=== PATIENT | male | born 1990 | race Caucasian/White ===

== ENCOUNTER 2023-05-10 16:12 | Observation (INO) ==
[2023-05-10] MEDS ORDERED: KETOROLAC TROMETHAMINE 15 MG/ML VIAL IV STA (16:51)
[2023-05-10] MEDS ORDERED: ONDANSETRON INJ 2 MG/ML 2 ML VIAL IV STA (16:51)
[2023-05-10] MEDS ORDERED: SODIUM CHLORIDE 0.9% 1,000 ML IV ONE ×2 (16:51→21:42)
--- NOTE | 2023-05-10 16:51 | ED Triage Note ---
Date of Service May 10, 2023 Provider in Triage Author: Dagmar Ramirez History of Present Illness This patient was briefly evaluated while in triage. An abbreviated physical exam was performed. This patient is a 33-year-old Male who presents to the ED for evaluation of left flank pain, vomiting and diarrhea. He states the vomiting and diarrhea started first. Pain started a few hours ago. He has had vomiting. Denies urinary symptoms. States symptoms hit suddenly. He does report diarrhea. Denies fevers. No history of similar symptoms. Physical Exam VITALS: Vitals are noted on the nurse's note and reviewed by myself. GENERAL: This is a 33-year-old male, in no acute distress, well-developed well- nourished. SKIN: The skin was without rashes. HEART: Regular rate and rhythm without murmurs gallops or rubs. LUNGS: Clear to auscultation bilaterally without wheezes, rales or rhonchi. No retractions or accessory muscle use. ABDOMEN: Positive bowel sounds x 4. Soft, left flank tenderness. NEURO: Patient was alert and oriented to person place and time. Initial orders for labs and / or imaging were placed and patient was placed in the waiting area until a bed is available. Please see further documentation for the full ED course.
[2023-05-10 18:35] LABS: Basophils # (auto) 0.05 K/uL (0.00-0.20); Basophils % (auto) 0.2 %; Eosinophils # (auto) 0.03 K/uL (0.00-0.50); Eosinophils % (auto) 0.1 %; Hematocrit (blood only) 44.1 % (42.0-52.0); Hemoglobin 16.3 g/dl (14.0-18.0); Immature Granulocytes # (auto) 0.12 K/uL (0.01-0.20); Immature Granulocytes % (auto) 0.6 %; Lymphocytes # (auto) 1.86 K/uL (1.20-3.40); Lymphocytes % (auto) 8.6 %; Mean Corpuscular Volume 81.2 fL (80.0-100.0); Mean Platelet Volume 10.4 fL (9.4-12.4); Monocytes # (auto) 0.79 K/uL (0.11-0.59); Monocytes % (auto) 3.7 %; Neutrophils # (auto) 18.69 K/uL (1.40-6.50); Neutrophils % (auto) 86.8 %; Platelet Count 318 K/uL (130-400); RDW Coefficient of Variation 12.2 % (11.5-14.5); Red Blood Count 5.43 M/uL (4.70-6.10); White Blood Count 21.54 K/ul (4.8-10.8)
[2023-05-10 18:47] LABS: Alanine Aminotransferase 26 U/L (7-52); Albumin Level 4.9 gm/dl (3.4-5.0); Alkaline Phosphatase 50 U/L (34-104); Anion Gap 14 (3-11); Aspartate Aminotransferase 20 U/L (13-39); BUN Creatinine Ratio 17.9 (10-20); Bilirubin,Total 0.7 mg/dl (0.2-1.0); Blood Urea Nitrogen 17 mg/dl (6-23); Calcium 9.9 mg/dl (8.6-10.3); Carbon Dioxide 20 mmol/L (21-32); Chloride 106 mmol/L (98-107); Est GFR (African American) 123.1 ml/min; Est GFR (Non-African American) 106.2 ml/min; Globulin 2.5 gm/dl (2.5-4.0); Glucose 128 mg/dl (70-99(Fasting)); Lipase 10 U/L (11-82); Potassium 3.5 mmol/L (3.5-5.1); Sodium 140 mmol/L (136-145); Total Protein 7.4 gm/dl (6.0-8.3)
[2023-05-10] MEDS ORDERED: OPTIRAY 320 500ml IV ONE (19:20)
[2023-05-10 19:32] LABS: Appearance Urine Clear (Clear); Bilirubin Urine Negative (Negative); Blood Urine Negative (Negative); Color Urine Yellow; Glucose Urine UA Negative (Negative); Ketones Urine 3+ (Negative); Leukocyte Esterase Urine Negative (Negative); Nitrite Urine Negative (Negative); Specific Gravity Urine 1.026 (1.000-1.030); Urobilinogen Urine Negative (Negative); pH Urine >= 9.0 (4.5-7.5)
[2023-05-10 19:34] LABS: Protein Urine 1+ (Negative)
[2023-05-10 19:57] LABS: Bacteria Urine Negative (Negative); Mucus Urine Present (None Prsent); RBC Urine 0-4 /hpf (0-4); WBC Urine 0-5 /hpf (0-5)
--- NOTE | 2023-05-10 19:57 | CT Scan Report ---
Exam(s): CT ABDOMEN + PELVIS With Contrast IV Amt: 90 cc opti 320 EXAM: CT Abdomen and Pelvis With Intravenous Contrast CLINICAL HISTORY: Reason for exam: left flank pain. TECHNIQUE: Axial computed tomography images of the abdomen and pelvis with intravenous contrast. CTDI is 15.86 mGy and DLP is 766.15 mGy-cm. Automated exposure control was utilized for the study. A dose lowering technique was utilized adhering to the principles of ALARA. CONTRAST: Patient received 90 cc opti 320 of IV contrast COMPARISON: No relevant prior studies available. FINDINGS: Lung bases: Unremarkable. No mass. No consolidation. ABDOMEN: Liver: Unremarkable. No mass. Gallbladder and bile ducts: Unremarkable. No calcified stones. No ductal dilation. Pancreas: Unremarkable. No mass. No ductal dilation. Spleen: Unremarkable. No splenomegaly. Adrenals: Unremarkable. No mass. Kidneys and ureters: Unremarkable. No solid mass. No hydronephrosis. Stomach and bowel: Wall thickening of the ascending and transverse colon, concerning for mild colitis. Diverticulosis, without acute diverticulitis. No small bowel obstruction. PELVIS: Appendix: No findings to suggest acute appendicitis. Bladder: Unremarkable. No mass. Reproductive: Unremarkable as visualized. ABDOMEN and PELVIS: Intraperitoneal space: Unremarkable. No free air. No significant fluid collection. Bones/joints: No acute fracture. No dislocation. Soft tissues: Small fat-containing bilateral inguinal hernias. Vasculature: Unremarkable. No abdominal aortic aneurysm. Lymph nodes: Unremarkable. No enlarged lymph nodes. IMPRESSION: Wall thickening of the ascending and transverse colon, concerning for mild colitis. Mild wall thickening of the urinary bladder, which is under distended. The need for urinalysis should be determined clinically. No hydronephrosis. No delayed nephrogram. Electronically signed by: Gatito Pickett MD 05/10/23 19:56 PM
[2023-05-10] MEDS ORDERED: LORazepam 1 MG TAB SL STA (20:10)
[2023-05-10] MEDS ORDERED: FAMOTIDINE 20MG IV PUSH 20 MG/5 ML SYR IV STA (21:42)
--- NOTE | 2023-05-10 21:42 | Emergency Department Note ---
ED Provider Note History of Present Illness Chief Complaint: Flank Pain Stated Complaint: SHARP LT FLANK PAIN, CONSISTANT VOMITING Time Seen by Provider: 05/10/23 21:14 This patient is a 33-year-old male who presents to the emergency department for evaluation of left flank pain, nausea/vomiting and diarrhea. He reports that symptoms started this morning. He developed nausea and diarrhea, then began vomiting. He reports that he then developed some left flank pain. Denies any blood in his stool or vomit. He reports having some chills. He states that pain is now in the upper abdomen. He did not take any medications prior to coming in. Denies noticing any fevers. Denies any recent sick contacts. Home Medications Medication Instructions Recorded Confirmed Type buspirone 30 mg tablet 30 mg PO BID 05/10/23 05/10/23 History dextroamphetamine-amphetamine 10 10 mg PO .DAILY AT NOON 05/10/23 05/10/23 History mg tablet dextroamphetamine-amphetamine ER 20 mg PO QAM 05/10/23 05/10/23 History 20 mg 24hr capsule,extend release escitalopram oxalate 20 mg tablet 20 mg PO DAILY 05/10/23 05/10/23 History lamotrigine 100 mg tablet 200 mg PO QAM 05/10/23 05/10/23 History vancomycin 125 mg capsule 125 mg PO Q6H 10 days #40 caps 05/13/23 Rx Allergies Allergy/AdvReac Type Severity Reaction Status Date / Time No Known Allergies Allergy Unverified 05/10/23 23:02 Past Med/Surg History Medical History Anxiety and depression Testicular torsion Surgical History No significant past surgical history Social History Smoking Status: Never smoker Second Hand Exposure: No; Do You Dip or Chew Tobacco: No; Hx Alcohol Use: No Hx Substance Use: Yes Last Used Substance: Days (ago) Last Used Substance Other:: 2 days ago Preferred Language: French Communication Ability: Effective Comparison Shopper Required: No Beliefs That Will Affect Care: None Current Living Situation: Alone Other Information That Helps Us Care for You: No Feels Safe at Home: Yes Safety Concerns: Feels Safe At This Time Assistive Devices: None Physical Exam Vital Signs Vital Signs - 24 hr 05/10/23 16:48 Temperature 36.8 C Temperature Source Temporal Artery Scan Pulse Rate 78 Respiratory Rate 19 Blood Pressure 147/86 H Blood Pressure Mean 106 Pulse Oximetry 100 Oxygen Delivery Method Room Air Sepsis Recent Fever Within 48 Hours No Sepsis New/Unexplained Change in Mental Status N/A Sepsis Action Taken by Nursing No Action Required VITALS: Vitals are noted on the nurse's note and reviewed by myself. GENERAL: This is a 33-year-old male, hunched over in pain. SKIN: The skin was without rashes. HEART: Regular rate and rhythm without murmurs gallops or rubs. LUNGS: Clear to auscultation bilaterally without wheezes, rales or rhonchi. ABDOMEN: Positive bowel sounds x 4. Tenderness to palpation across the upper abdomen. No guarding or rebound tenderness NEURO: Patient was alert and oriented to person place and time. Course Administered Medications Discontinued Medications Amphetamine/Dextroamphetamine (Dextroamphetamine/Amphetamine Ir 10 Mg Tab) 10 mg PO DAILY@1200 [facility] Stop: 05/25/23 11:59 Last Admin: 05/13/23 11:59 Dose: Not Given Documented By: Admin: 05/12/23 15:03 Dose: Not Given Documented By: Admin: 05/11/23 12:55 Dose: Not Given Documented By: KEMAL Amphetamine/Dextroamphetamine (Dextroamphetamine/Amphetamine Er 20 Mg Cap) 20 mg PO QAM [facility] Stop: 05/25/23 08:59 Last Admin: 05/13/23 08:49 Dose: Not Given Documented By: Admin: 05/12/23 09:04 Dose: 20 mg Documented By: Admin: 05/11/23 09:16 Dose: Not Given Documented By: KEMAL Buspirone HCl (Buspirone 15 Mg Tab) 30 mg PO BID [facility] Stop: 06/10/23 08:59 Last Admin: 05/13/23 11:59 Dose: 30 mg Documented By: Admin: 05/12/23 19:33 Dose: 30 mg Documented By: Admin: 05/12/23 09:04 Dose: 30 mg Documented By: Admin: 05/11/23 21:12 Dose: 30 mg Documented By: Admin: 05/11/23 09:15 Dose: 30 mg Documented By: KEMAL Johnson Syrup (Johnson Syrup 5 Ml Udp) 5 ml PO Q6 [facility] Stop: 05/22/23 17:59 Last Admin: 05/13/23 11:58 Dose: 5 ml Documented By: Admin: 05/13/23 06:08 Dose: 5 ml Documented By: Admin: 05/12/23 22:49 Dose: 5 ml Documented By: Admin: 05/12/23 17:50 Dose: 5 ml Documented By: GERARDO Diphenhydramine HCl (Diphenhydramine 50 Mg/Ml Vial) 25 mg IV NOW STA Stop: 05/10/23 22:07 Last Admin: 05/10/23 22:18 Dose: 25 mg Documented By: TODD Diphenhydramine HCl (Diphenhydramine 50 Mg/Ml Vial) 25 mg IV NOW STA Stop: 05/11/23 08:59 Last Admin: 05/11/23 09:30 Dose: 25 mg Documented By: KEMAL Diphenhydramine HCl (Diphenhydramine Capsule 25 Mg Cap) 25 mg PO NOW ONE Stop: 05/11/23 19:43 Last Admin: 05/11/23 21:12 Dose: 25 mg Documented By: DAREK Diphenhydramine HCl (Diphenhydramine Capsule 25 Mg Cap) 25 mg PO HS PRN PRN Reason: Sleep Stop: 06/11/23 23:58 Last Admin: 05/13/23 00:19 Dose: 25 mg Documented By: RADHA Enoxaparin Sodium (Enoxaparin Inj 40 Mg/0.4 Ml Syr) 40 mg SQ QAM [facility] Stop: 06/10/23 08:59 Last Admin: 05/13/23 08:47 Dose: 40 mg Documented By: Admin: 05/12/23 09:05 Dose: 40 mg Documented By: Admin: 05/11/23 09:19 Dose: 40 mg Documented By: KEMAL Escitalopram Oxalate (Escitalopram Oxalate 20 Mg Tab) 20 mg PO DAILY [facility] Stop: 06/10/23 08:59 Last Admin: 05/13/23 08:48 Dose: 20 mg Documented By: Admin: 05/12/23 09:05 Dose: 20 mg Documented By: Admin: 05/11/23 09:16 Dose: 20 mg Documented By: KEMAL Sodium Chloride (Nss) 1,000 mls @ 999 mls/hr IV .Q1H1M ONE Stop: 05/10/23 17:51 Last Infusion: 05/10/23 20:37 Dose: Infused Documented By: Admin: 05/10/23 17:53 Dose: 999 mls/hr Documented By: BING Famotidine (Pepcid 20mg Iv Push) 20 mg in 5 mls @ 2.5 mls/min IV NOW STA Stop: 05/10/23 21:43 Last Admin: 05/10/23 22:20 Dose: 2.5 mls/min Documented By: TODD Sodium Chloride (Nss) 1,000 mls @ 999 mls/hr IV .Q1H1M ONE Stop: 05/10/23 22:42 Last Infusion: 05/10/23 23:53 Dose: Infused Documented By: Admin: 05/10/23 22:17 Dose: 999 mls/hr Documented By: TODD Lactated Ringer's (Lr) 1,000 mls @ 250 mls/hr IV .Q4H ONE Stop: 05/11/23 03:22 Last Infusion: 05/11/23 04:02 Dose: Infused Documented By: Admin: 05/11/23 00:24 Dose: 250 mls/hr Documented By: MIKIE Promethazine HCl 6.25 mg/ (Sodium Chloride) 50.25 mls @ 201 mls/hr IV Q6H PRN PRN Reason: Nausea And Vomiting Stop: 06/10/23 01:47 Last Infusion: 05/11/23 21:34 Dose: Infused Documented By: Admin: 05/11/23 21:09 Dose: 201 mls/hr Documented By: Infusion: 05/11/23 03:59 Dose: Infused Documented By: Admin: 05/11/23 03:10 Dose: 201 mls/hr Documented By: LETICIA Lorazepam 0.5 mg/ Syringe 0.5 mls @ 2 mls/min IV Q4H PRN PRN Reason: Anxiety/Agitation Stop: 06/10/23 01:47 Last Admin: 05/13/23 08:48 Dose: 2 mls/min Documented By: Admin: 05/12/23 22:49 Dose: 2 mls/min Documented By: RADHA Lactated Ringer's (Lr) 1,000 mls @ 200 mls/hr IV .Q5H ONE Stop: 05/11/23 08:59 Last Infusion: 05/11/23 09:08 Dose: Infused Documented By: Admin: 05/11/23 04:00 Dose: 200 mls/hr Documented By: LETICIA Ciprofloxacin (Cipro / D5w) 400 mg in 200 mls @ 100 mls/hr IV Q12H MARK ANTHONY; Protocol Stop: 05/21/23 14:59 Last Infusion: 05/13/23 06:10 Dose: Infused Documented By: Admin: 05/13/23 04:10 Dose: 100 mls/hr Documented By: Infusion: 05/12/23 17:17 Dose: Infused Documented By: Admin: 05/12/23 15:04 Dose: 100 mls/hr Documented By: Infusion: 05/12/23 04:59 Dose: Infused Documented By: Admin: 05/12/23 02:55 Dose: 100 mls/hr Documented By: Infusion: 05/11/23 18:12 Dose: Infused Documented By: Admin: 05/11/23 15:49 Dose: 100 mls/hr Documented By: KEMAL Metronidazole (Flagyl) 500 mg in 100 mls @ 100 mls/hr IV Q8H MARK ANTHONY; Protocol Stop: 05/21/23 14:59 Last Infusion: 05/13/23 07:16 Dose: Infused Documented By: Admin: 05/13/23 06:07 Dose: 100 mls/hr Documented By: Infusion: 05/12/23 23:49 Dose: Infused Documented By: Admin: 05/12/23 22:49 Dose: 100 mls/hr Documented By: Infusion: 05/12/23 16:04 Dose: Infused Documented By: Admin: 05/12/23 15:04 Dose: 100 mls/hr Documented By: Infusion: 05/12/23 07:19 Dose: Infused Documented By: Admin: 05/12/23 06:19 Dose: 100 mls/hr Documented By: Infusion: 05/12/23 00:13 Dose: Infused Documented By: Admin: 05/11/23 23:03 Dose: 100 mls/hr Documented By: Infusion: 05/11/23 17:31 Dose: Infused Documented By: Admin: 05/11/23 16:03 Dose: 100 mls/hr Documented By: KEMAL Ioversol (Optiray 320 500ml) 90 ml IV ONCE ONE Stop: 05/10/23 19:21 Last Admin: 05/10/23 19:20 Dose: 90 ml Documented By: TESS Ketorolac Tromethamine (Ketorolac Tromethamine 15 Mg/Ml Vial) 15 mg IV NOW STA Stop: 05/10/23 16:52 Last Admin: 05/10/23 17:53 Dose: 15 mg Documented By: BING Ketorolac Tromethamine (Ketorolac Tromethamine 15 Mg/Ml Vial) 15 mg IV Q6H PRN PRN Reason: Pain Stop: 05/16/23 01:47 Last Admin: 05/12/23 19:33 Dose: 15 mg Documented By: Admin: 05/11/23 21:11 Dose: 15 mg Documented By: Admin: 05/11/23 03:09 Dose: 15 mg Documented By: LETICIA Lamotrigine (Lamotrigine 100 Mg Tab) [facility] [place]; Protocol Stop: 06/10/23 08:59 Last Admin: 05/13/23 08:48 Dose: 200 mg Documented By: Admin: 05/12/23 09:04 Dose: 200 mg Documented By: Admin: 05/11/23 09:17 Dose: 200 mg Documented By: KEMAL Lorazepam (Lorazepam 1 Mg Tab) 1 mg SL NOW STA Stop: 05/10/23 20:11 Last Admin: 05/10/23 20:24 Dose: 1 mg Documented By: KRISTEN Magnesium Hydroxide (Magnesium Hydroxide Susp 30 Ml Udc) 30 ml PO NOW ONE Stop: 05/12/23 10:11 Last Admin: 05/12/23 11:24 Dose: 30 ml Documented By: GERARDO Melatonin (Melatonin 3 Mg Tab) 3 mg PO HS PRN PRN Reason: Sleep Stop: 06/10/23 00:35 Last Admin: 05/11/23 03:08 Dose: 3 mg Documented By: LETICIA Metoclopramide HCl (Metoclopramide Hcl Inj 5 Mg/Ml 2 Ml Vial) 5 mg IV ONE ONE Stop: 05/10/23 22:07 Last Admin: 05/10/23 22:20 Dose: 5 mg Documented By: TODD Ondansetron HCl (Ondansetron Inj 2 Mg/Ml 2 Ml Vial) 4 mg IV NOW STA Stop: 05/10/23 16:52 Last Admin: 05/10/23 17:53 Dose: 4 mg Documented By: BING Vancomycin HCl (Vancomycin Hcl 125 Mg/2.5ml Soln) 125 mg PO Q6 [facility] ANTHONY Stop: 05/22/23 17:59 Last Admin: 05/13/23 11:58 Dose: 125 mg Documented By: Admin: 05/13/23 06:08 Dose: 125 mg Documented By: Admin: 05/12/23 22:49 Dose: 125 mg Documented By: Admin: 05/12/23 17:50 Dose: 125 mg Documented By: GERARDO Medical Decision Making Differential Diagnosis Appendicitis, testicular torsion, infections, diverticulitis, UTI, obstruction, mesenteric ischemia, aortic pathology, inflammatory bowel disease, renal colic, PUD, pancreatitis, biliary pathology, hernia, volvulus, constipation, as well as other pathologies. Home Medications was personally reviewed by me Laboratory Data Attestation: I reviewed the patient's lab results. 05/13/23 06:25 05/13/23 06:25 Lab Results 05/10/23 05/10/23 05/10/23 Range/Units 17:50 18:23 22:35 WBC 21.54 H (4.8-10.8) K/ul RBC 5.43 (4.70-6.10) M/uL Hgb 16.3 (14.0-18.0) g/dl Hct 44.1 (42.0-52.0) % MCV 81.2 (80.0-100.0) fL MCH 30.0 (25.0-34.0) pg MCHC 37.0 H (32.0-36.0) g/dL RDW Std Deviation 36.0 L (36.4-46.3) fL RDW Coeff of Moiz 12.2 (11.5-14.5) % Plt Count 318 (130-400) K/uL MPV 10.4 (9.4-12.4) fL Immature Gran % (Auto) 0.6 % Neut % (Auto) 86.8 % Lymph % (Auto) 8.6 % Nelson % (Auto) 3.7 % Eos % (Auto) 0.1 % Baso % (Auto) 0.2 % Neut # (Auto) 18.69 H (1.40-6.50) K/uL Lymph # (Auto) 1.86 (1.20-3.40) K/uL Nelson # (Auto) 0.79 H (0.11-0.59) K/uL Eos # (Auto) 0.03 (0.00-0.50) K/uL Baso # (Auto) 0.05 (0.00-0.20) K/uL Immature Gran # (Auto) 0.12 (0.01-0.20) K/uL Sodium 140 (136-145) mmol/L Potassium 3.5 (3.5-5.1) mmol/L Chloride 106 (98-107) mmol/L Carbon Dioxide 20 L (21-32) mmol/L Anion Gap 14 H (3-11) BUN 17 (6-23) mg/dl Creatinine 0.95 (0.6-1.4) mg/dl Est Cr Clr Drug Dosing Not Reportable Est GFR ( Amer) 123.1 ml/min Est GFR (Non-Af Amer) 106.2 ml/min BUN/Creatinine Ratio 17.9 (10-20) Glucose 128 H (70-99(Fasting)) mg/dl Lactate 2.5 H* (0.4-2.0) mmol/L Calcium 9.9 (8.6-10.3) mg/dl Total Bilirubin 0.7 (0.2-1.0) mg/dl AST 20 (13-39) U/L ALT 26 (7-52) U/L Alkaline Phosphatase 50 (34-104) U/L Troponin I High Sens 2.3 (0-20) pg/ml Total Protein 7.4 (6.0-8.3) gm/dl Albumin 4.9 (3.4-5.0) gm/dl Globulin 2.5 (2.5-4.0) gm/dl Albumin/Globulin Ratio 2.0 (0.9-2) Lipase 10 L (11-82) U/L Procalcitonin (0-0.5) ng/ml Urine Color Yellow Urine Appearance Clear (Clear) Urine pH >= 9.0 H (4.5-7.5) Ur Specific [place] 1.026 (1.000-1.030) Urine Protein 1+ H (Negative) Urine Glucose (UA) Negative (Negative) Urine Ketones 3+ H (Negative) Urine Blood Negative (Negative) Urine Nitrite Negative (Negative) Urine Bilirubin Negative (Negative) Urine Urobilinogen Negative (Negative) Ur Leukocyte Esterase Negative (Negative) Urine RBC 0-4 (0-4) /hpf Urine WBC 0-5 (0-5) /hpf Ur Epithelial Cells 10-20 H (0-5) /lpf Urine Bacteria Negative (Negative) Hyaline Casts 5-10 H (0-5) /lpf Urine Mucus Present A (None Prsent) 05/11/23 Range/Units 00:27 WBC (4.8-10.8) K/ul RBC (4.70-6.10) M/uL Hgb (14.0-18.0) g/dl Hct (42.0-52.0) % MCV (80.0-100.0) fL MCH (25.0-34.0) pg MCHC (32.0-36.0) g/dL RDW Std Deviation (36.4-46.3) fL RDW Coeff of Moiz (11.5-14.5) % Plt Count (130-400) K/uL MPV (9.4-12.4) fL Immature Gran % (Auto) % Neut % (Auto) % Lymph % (Auto) % Nelson % (Auto) % Eos % (Auto) % Baso % (Auto) % Neut # (Auto) (1.40-6.50) K/uL Lymph # (Auto) (1.20-3.40) K/uL Nelson # (Auto) (0.11-0.59) K/uL Eos # (Auto) (0.00-0.50) K/uL Baso # (Auto) (0.00-0.20) K/uL Immature Gran # (Auto) (0.01-0.20) K/uL Sodium (136-145) mmol/L Potassium (3.5-5.1) mmol/L Chloride (98-107) mmol/L Carbon Dioxide (21-32) mmol/L Anion Gap (3-11) BUN (6-23) mg/dl Creatinine (0.6-1.4) mg/dl Est Cr Clr Drug Dosing Est GFR ( Amer) ml/min Est GFR (Non-Af Amer) ml/min BUN/Creatinine Ratio (10-20) Glucose (70-99(Fasting)) mg/dl Lactate 2.5 H* (0.4-2.0) mmol/L Calcium (8.6-10.3) mg/dl Total Bilirubin (0.2-1.0) mg/dl AST (13-39) U/L ALT (7-52) U/L Alkaline Phosphatase (34-104) U/L Troponin I High Sens (0-20) pg/ml Total Protein (6.0-8.3) gm/dl Albumin (3.4-5.0) gm/dl Globulin (2.5-4.0) gm/dl Albumin/Globulin Ratio (0.9-2) Lipase (11-82) U/L Procalcitonin < 0.05 (0-0.5) ng/ml Urine Color Urine Appearance (Clear) Urine pH (4.5-7.5) Ur Specific [place] (1.000-1.030) Urine Protein (Negative) Urine Glucose (UA) (Negative) Urine Ketones (Negative) Urine Blood (Negative) Urine Nitrite (Negative) Urine Bilirubin (Negative) Urine Urobilinogen (Negative) Ur Leukocyte Esterase (Negative) Urine RBC (0-4) /hpf Urine WBC (0-5) /hpf Ur Epithelial Cells (0-5) /lpf Urine Bacteria (Negative) Hyaline Casts (0-5) /lpf Urine Mucus (None Prsent) Imaging Data Attestation: I personally reviewed and interpreted this imaging study as follows: Radiologist's Impression: Abdomen/Pelvis CT 05/10/23 16:51 Exam(s): CT ABDOMEN + PELVIS With Contrast IV Amt: 90 cc opti 320 EXAM: CT Abdomen and Pelvis With Intravenous Contrast CLINICAL HISTORY: Reason for exam: left flank pain. TECHNIQUE: Axial computed tomography images of the abdomen and pelvis with intravenous contrast. CTDI is 15.86 mGy and DLP is 766.15 mGy-cm. Automated exposure control was utilized for the study. A dose lowering technique was utilized adhering to the principles of ALARA. CONTRAST: Patient received 90 cc opti 320 of IV contrast COMPARISON: No relevant prior studies available. FINDINGS: Lung bases: Unremarkable. No mass. No consolidation. ABDOMEN: Liver: Unremarkable. No mass. Gallbladder and bile ducts: Unremarkable. No calcified stones. No ductal dilation. Pancreas: Unremarkable. No mass. No ductal dilation. Spleen: Unremarkable. No splenomegaly. Adrenals: Unremarkable. No mass. Kidneys and ureters: Unremarkable. No solid mass. No hydronephrosis. Stomach and bowel: Wall thickening of the ascending and transverse colon, concerning for mild colitis. Diverticulosis, without acute diverticulitis. No small bowel obstruction. PELVIS: Appendix: No findings to suggest acute appendicitis. Bladder: Unremarkable. No mass. Reproductive: Unremarkable as visualized. ABDOMEN and PELVIS: Intraperitoneal space: Unremarkable. No free air. No significant fluid collection. Bones/joints: No acute fracture. No dislocation. Soft tissues: Small fat-containing bilateral inguinal hernias. Vasculature: Unremarkable. No abdominal aortic aneurysm. Lymph nodes: Unremarkable. No enlarged lymph nodes. IMPRESSION: Wall thickening of the ascending and transverse colon, concerning for mild colitis. Mild wall thickening of the urinary bladder, which is under distended. The need for urinalysis should be determined clinically. No hydronephrosis. No delayed nephrogram. Electronically signed by: Gatito Pickett MD 05/10/23 19:56 PM [facility] Narrative Patient is a 33-year-old male who presents to the emergency department for evaluation of flank pain, nausea/vomiting/diarrhea which started today. Labs did reveal a leukocytosis of over 21,000 and elevation of the lactate. CT scan shows evidence of a nonspecific colitis. Patient unable to provide a stool sample in the emergency department. He was treated with IV fluids and multiple rounds of antiemetics without much relief of symptoms. Given persistent symptoms and laboratory abnormalities, I do think admission for further care is warranted. Patient agrees with plan of care. Case was discussed with the hospitalist service who agreed to evaluate the patient. Impression Colitis, Intractable vomiting Discharge Plan Visit Data Chief Complaint: Flank Pain Stated Complaint: SHARP LT FLANK PAIN, CONSISTANT VOMITING ED Provider: Aren James ED Midlevel Provider: Dagmar Ramirez Discharge Problem: Colitis, Intractable vomiting Patient Disposition: Admitted As Inpatient Discharge Instructions Interventions: ED Discharge Assessment Last Done: 05/11/23 02:23
[2023-05-10] MEDS ORDERED: METOCLOPRAMIDE HCL INJ 5 MG/ML 2 ML VIAL IV ONE (22:06)
[2023-05-10] MEDS ORDERED: diphenhydrAMINE 50 MG/ML VIAL IV STA (22:06)
[2023-05-10] MEDS ORDERED: LACTATED RINGER'S 1,000 ML IV ONE (23:23)
[2023-05-11] MEDS ORDERED: MELATONIN 3 MG TAB PO PRN (00:36)
--- NOTE | 2023-05-11 01:45 | History & Physical Report ---
Date of Service May 11, 2023 Assessment & Plan (1) Colitis: Plan: Likely viral Lactic acidosis secondary to clinical dehydration ADHD/anxiety/mood disorder, at baseline OBS GMF Stool CS, C. difficile Supportive management for viral colitis Follow lactic acid response to IVF GI consult if without improvement DVT prophylaxis. Lovenox subcu Full code Text document was generated using [employer] voice recognition software. It may contain grammatical or spelling errors. Kindly contact undersigned for clarification of any documentation item in question. History of Present Illness Chief Complaint: Abdominal pain Primary Care Provider: Tavon South MD History obtained from patient and records. Medical history significant for ADHD, anxiety/mood disorder. 1 day history of achy epigastric/left flank pain complaints associated with bilious emesis and watery diarrhea. 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 No recent antibiotics, out-of-town travel, new restaurants. No chest pain, no SOB. Medical History as above No previous colonoscopies. 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 Allergies Allergy/AdvReac Type Severity Reaction Status Date / Time No Known Allergies Allergy Unverified 05/10/23 23:02 Home Medications Medication Instructions Recorded Confirmed Type buspirone 30 mg tablet 30 mg PO BID 05/10/23 05/10/23 History dextroamphetamine-amphetamine 10 10 mg PO .DAILY AT NOON 05/10/23 05/10/23 History mg tablet dextroamphetamine-amphetamine ER 20 mg PO QAM 05/10/23 05/10/23 History 20 mg 24hr capsule,extend release escitalopram oxalate 20 mg tablet 20 mg PO DAILY 05/10/23 05/10/23 History lamotrigine 100 mg tablet 200 mg PO QAM 05/10/23 05/10/23 History Past Med/Surg History Medical History (Updated 05/11/23 @ 10:17 by Vivek Roper MD) Anxiety and depression Testicular torsion Surgical History (Updated 05/10/23 @ 21:42 by Dagmar Ramirez PA-C) No significant past surgical history Social History Smoking Status: Never smoker Second Hand Exposure: No; Do You Dip or Chew Tobacco: No; Hx Alcohol Use: No Hx Substance Use: Yes Last Used Substance: Days (ago) Last Used Substance Other:: 2 days ago Preferred Language: Spanish Communication Ability: Effective Industrial Radiographer Required: No Beliefs That Will Affect Care: None Current Living Situation: Alone Other Information That Helps Us Care for You: No Feels Safe at Home: Yes Safety Concerns: Feels Safe At This Time Assistive Devices: None Review of Systems Review of Systems: As per HPI, all other systems reviewed and negative Physical Exam Physical Exam: GENERAL: Slightly uncomfortable, no respiratory distress SKIN: Normal color, warm HEENT: [place] palpebral conjunctivae, no ptosis, dry buccal mucosa NECK : Supple, no tenderness CHEST : CTA, no tenderness HEART : RRR, no obvious murmurs ABDOMEN: Some distention, epigastric tenderness EXTREMITIES : No LE swelling/tenderness, no other conspicuous deformities noted NEUROLOGIC : Coherent, no facial asymmetry, no other gross focality Results & Data Results & Data Vital Signs (Past 12 Hours) Vital Signs Temp Pulse Pulse Resp BP BP Pulse Ox 05/11/23 01:00 62 18 122/72 100 05/10/23 23:00 88 18 122/74 98 05/10/23 16:48 36.8 C 78 19 147/86 H 100 O2 Del Method 05/11/23 01:00 Room Air 05/10/23 23:00 Room Air 05/10/23 16:48 Room Air Laboratory Results Laboratory Results WBC 21.54 K/ul (4.8-10.8) H 05/10/23 17:50 RBC 5.43 M/uL (4.70-6.10) 05/10/23 17:50 Hgb 16.3 g/dl (14.0-18.0) 05/10/23 17:50 Hct 44.1 % (42.0-52.0) 05/10/23 17:50 MCV 81.2 fL (80.0-100.0) 05/10/23 17:50 MCH 30.0 pg (25.0-34.0) 05/10/23 17:50 MCHC 37.0 g/dL (32.0-36.0) H 05/10/23 17:50 RDW Std Deviation 36.0 fL (36.4-46.3) L 05/10/23 17:50 RDW Coeff of Moiz 12.2 % (11.5-14.5) 05/10/23 17:50 Plt Count 318 K/uL (130-400) 05/10/23 17:50 MPV 10.4 fL (9.4-12.4) 05/10/23 17:50 Immature Gran % (Auto) 0.6 % 05/10/23 17:50 Neut % (Auto) 86.8 % 05/10/23 17:50 Lymph % (Auto) 8.6 % 05/10/23 17:50 Crane % (Auto) 3.7 % 05/10/23 17:50 Eos % (Auto) 0.1 % 05/10/23 17:50 Baso % (Auto) 0.2 % 05/10/23 17:50 Neut # (Auto) 18.69 K/uL (1.40-6.50) H 05/10/23 17:50 Lymph # (Auto) 1.86 K/uL (1.20-3.40) 05/10/23 17:50 Crane # (Auto) 0.79 K/uL (0.11-0.59) H 05/10/23 17:50 Eos # (Auto) 0.03 K/uL (0.00-0.50) 05/10/23 17:50 Baso # (Auto) 0.05 K/uL (0.00-0.20) 05/10/23 17:50 Immature Gran # (Auto) 0.12 K/uL (0.01-0.20) 05/10/23 17:50 Sodium 140 mmol/L (136-145) 05/10/23 17:50 Potassium 3.5 mmol/L (3.5-5.1) 05/10/23 17:50 Chloride 106 mmol/L (98-107) 05/10/23 17:50 Carbon Dioxide 20 mmol/L (21-32) L 05/10/23 17:50 Anion Gap 14 (3-11) H 05/10/23 17:50 BUN 17 mg/dl (6-23) 05/10/23 17:50 Creatinine 0.95 mg/dl (0.6-1.4) 05/10/23 17:50 Est Cr Clr Drug Dosing Not Reportable 05/10/23 17:50 Est GFR ( Amer) 123.1 ml/min 05/10/23 17:50 Est GFR (Non-Af Amer) 106.2 ml/min 05/10/23 17:50 BUN/Creatinine Ratio 17.9 (10-20) 05/10/23 17:50 Glucose 128 mg/dl (70-99(Fasting)) H 05/10/23 17:50 Lactate 2.5 mmol/L (0.4-2.0) H* 05/11/23 00:27 Calcium 9.9 mg/dl (8.6-10.3) 05/10/23 17:50 Total Bilirubin 0.7 mg/dl (0.2-1.0) 05/10/23 17:50 AST 20 U/L (13-39) 05/10/23 17:50 ALT 26 U/L (7-52) 05/10/23 17:50 Alkaline Phosphatase 50 U/L (34-104) 05/10/23 17:50 Troponin I High Sens 2.3 pg/ml (0-20) 05/10/23 22:35 Total Protein 7.4 gm/dl (6.0-8.3) 05/10/23 17:50 Albumin 4.9 gm/dl (3.4-5.0) 05/10/23 17:50 Globulin 2.5 gm/dl (2.5-4.0) 05/10/23 17:50 Albumin/Globulin Ratio 2.0 (0.9-2) 05/10/23 17:50 Lipase 10 U/L (11-82) L 05/10/23 17:50 Procalcitonin < 0.05 ng/ml (0-0.5) 05/11/23 00:27 Urine Color Yellow 05/10/23 18:23 Urine Appearance Clear (Clear) 05/10/23 18:23 Urine pH >= 9.0 (4.5-7.5) H 05/10/23 18:23 Ur Specific [place] 1.026 (1.000-1.030) 05/10/23 18:23 Urine Protein 1+ (Negative) H 05/10/23 18:23 Urine Glucose (UA) Negative (Negative) 05/10/23 18:23 Urine Ketones 3+ (Negative) H 05/10/23 18:23 Urine Blood Negative (Negative) 05/10/23 18:23 Urine Nitrite Negative (Negative) 05/10/23 18:23 Urine Bilirubin Negative (Negative) 05/10/23 18:23 Urine Urobilinogen Negative (Negative) 05/10/23 18:23 Ur Leukocyte Esterase Negative (Negative) 05/10/23 18:23 Urine RBC 0-4 /hpf (0-4) 05/10/23 18:23 Urine WBC 0-5 /hpf (0-5) 05/10/23 18:23 Ur Epithelial Cells 10-20 /lpf (0-5) H 05/10/23 18:23 Urine Bacteria Negative (Negative) 05/10/23 18:23 Hyaline Casts 5-10 /lpf (0-5) H 05/10/23 18:23 Urine Mucus Present (None Prsent) A 05/10/23 18:23 Impressions Abdomen/Pelvis CT 05/10/23 16:51 Exam(s): CT ABDOMEN + PELVIS With Contrast IV Amt: 90 cc opti 320 EXAM: CT Abdomen and Pelvis With Intravenous Contrast CLINICAL HISTORY: Reason for exam: left flank pain. TECHNIQUE: Axial computed tomography images of the abdomen and pelvis with intravenous contrast. CTDI is 15.86 mGy and DLP is 766.15 mGy-cm. Automated exposure control was utilized for the study. A dose lowering technique was utilized adhering to the principles of ALARA. CONTRAST: Patient received 90 cc opti 320 of IV contrast COMPARISON: No relevant prior studies available. FINDINGS: Lung bases: Unremarkable. No mass. No consolidation. ABDOMEN: Liver: Unremarkable. No mass. Gallbladder and bile ducts: Unremarkable. No calcified stones. No ductal dilation. Pancreas: Unremarkable. No mass. No ductal dilation. Spleen: Unremarkable. No splenomegaly. Adrenals: Unremarkable. No mass. Kidneys and ureters: Unremarkable. No solid mass. No hydronephrosis. Stomach and bowel: Wall thickening of the ascending and transverse colon, concerning for mild colitis. Diverticulosis, without acute diverticulitis. No small bowel obstruction. PELVIS: Appendix: No findings to suggest acute appendicitis. Bladder: Unremarkable. No mass. Reproductive: Unremarkable as visualized. ABDOMEN and PELVIS: Intraperitoneal space: Unremarkable. No free air. No significant fluid collection. Bones/joints: No acute fracture. No dislocation. Soft tissues: Small fat-containing bilateral inguinal hernias. Vasculature: Unremarkable. No abdominal aortic aneurysm. Lymph nodes: Unremarkable. No enlarged lymph nodes. IMPRESSION: Wall thickening of the ascending and transverse colon, concerning for mild colitis. Mild wall thickening of the urinary bladder, which is under distended. The need for urinalysis should be determined clinically. No hydronephrosis. No delayed nephrogram. Electronically signed by: Gatito Pickett MD 05/10/23 19:56 PM Diagnostic Findings EKG as per my interpretation :Rate 75, NSR, normal axis, T wave flattening lateral leads
[2023-05-11] MEDS ORDERED: ACETAMINOPHEN 325 MG TAB PO PRN (01:48)
--- OUTSIDE RECORDS SUMMARY | 2023-05-11 02:56 | External Medical Summary | Summary of Care ---
Author Name Unknown Organization [facility] Address [address] [place] [address] Phone [phone] Care Team Providers Care Breakfast And Room Attendant Name Role Phone Tavon South MD Primary Care Provider [phone] Reason for Visit * Reason Comments Medication Management Encounter Details Date Type Department Care Team (Late st Contact Info) Description 04/20/2023 3:30 PM EST Telemedicine Psychiatry, [place] [address] [place] [address] Douglas Duran MD [address] [place] [address] OBDULIO (generalized anxiety disorder)*; Attention deficit disorder (ADD) in adult Allergies No known active allergiesdocumented as of this encounter (statuses as of 04/20/2023) Medications Medication Sig Dispensed Refills Start Date End Date Status lamoTRIgine 100 MG Oral Tablet (LaMICtal) Take 2 Tablets by mouth in the morning. 180 Tablet 1 11/28/2022 Active busPIRone HCl 30 MG Oral Tablet Take 1 Tablet by mouth in the morning and 1 Tablet before bedtime. 60 Tablet 4 01/05/2023 Active Escitalopram Oxalate 20 MG Oral Tablet (Lexapro) Take 1 Tablet by mouth in the morning. 30 Tablet 5 02/15/2023 Active Amphetamine-Dextr oamphet ER 20 MG Oral Capsule Extended Release 24 Hour (Adderall XR) Take 1 Capsule by mouth in the morning 30 Capsule 0 03/26/2023 Active Amphetamine-Dextr oamphetamine 10 MG Oral Tablet (Adderall) Take 1 Tablet by mouth daily at noon. 30 Tablet 0 04/20/2023 Active Amphetamine-Dextr oamphetamine 10 MG Oral Tablet (Adderall) Take 1 Tablet by mouth daily at noon. 30 Tablet 0 03/01/2023 04/20/2023 Discontinued (Refill) documented as of this encounter (statuses as of 04/20/2023) Active Problems Problem Noted Date Diagnosed Date OBDULIO (generalized anxiety disorder) 05/04/2022 Attention deficit disorder (ADD) in adult 2020 Class 2 obesity due to exces s calories without serious comorbidity with body mass index (BMI) of 35.0 to 35.9 in adult 07/13/2020 Moderate episode of recurrent major depressive d isorder 06/08/2020 documented as of this encounter (statuses as of 04/20/2023) Resolved Problems Problem Noted Date Diagnosed Date Resolved Date Weight gain 06/08/2020 07/11/2020 documented as of this encounter (statuses as of 04/20/2023) Immunizations Name Administration Dates Next Due Covid-19 Ad26, Single Dose (Wes/J&J) 021 Seasonal Influenza, PF, 6 M & above, IM , (FluLaval or Fluzone) 05/04/2022 TDAP (age 10 and older)(Boostrix) 08/25/2020 documented as of this encounter Social History Tobacco Use Types Packs/Day Years Used Date Smoking Tobacco: Never Smokeless Tobacco: Never Comments:parents and brother were chain smokers inside the house Alcohol Use Standard Drinks/Week Comments Yes 0 (1 standard drink = 0.6 oz pur e alcohol) weekends PHQ-2 Answer Date Recorded PHQ Adult Total Score 17 05/04/2022 Hunger Vital Sign Answer Date Recorded Within the past 12 months, y ou worried that your food would run out before you got the money to buy more. Never true 04/20/19 24 Within the past 12 months, t he food you bought just didn't last and you didn't have money to get more. Never true 04/20/2023 Sex and Gender Information Value Date Recorded Sex Assigned at Male 04/20/2023 3:14 PM EST Gender Identity Male 04/20/2023 3:14 PM EST Sexual Orientation Choose not to disclose 2023 3:14 PM EST Job Start Date Occupation Industry Not on file Not on file Not on file documented as of this encounter Patient Instructions * Patient Instructions* Douglas Duran MD - 04/20/2023 4:15 PM EST Continue lamotrigine 200 mg a day Continue BuSpar 30 mg twice a day Continue escitalopram 20 mg a day for mood Continue individual psychotherapy documented in this encounter Progress Notes * Douglas Duran MD - 04/20/2023 3:42 PM EST Patient Location: HOME. After connecting through [employer], patient was verified with two unique identifiers. 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 Methods to assure confidentiality were taken. Patient acknowledged consent and understanding of privacy and security of the Telemedicine visit. The patient agreed to participate. PSYCHOTHERAPY & MEDICATION MANAGEMENT RETURN VISIT NOTE 04/20/2023 Raphael Christie CHIEF COMPLAINT: Depression, anxiety INTERVAL HISTORY: Raphael Christie is a 32 year old male presenting today for a follow-up appointment. Patient under the care of JEFF Austin and being seen today for a bridge appointment until Mr. Austin's return. Pt reports having a "difficult stretch during the holidays", was spending extra time with family, out of his routine. Has returned to his routine recently. Still feels he has "spikes in anxiety", andsleeping more than usual. Didn't go to his adult league soccer game yesterday. Feels he's "coming down from the holidays". Always feels worse around the holidays due to "complicated family drama" with extended family. The family never enjoys the holidays, feels it is "forced, not real, very stressful". Feels he coped with the holidays slightly better this year than last year, which prompted him to seek help. Describes leaving moms apartment to go cry in his car for 30 minutes. Episode was caused by "fear/anxiety of ", ruminating that he may never see family members again if they . Notes father passed unexpectedly and makes him think of losing family. Immediately preceding the event he had a difficult conversation with mother when he was "questioning a gift" he received from her. Experiencing GI symptoms in response to anxiety. Continues to find therapy beneficial Feels tired and with low energy when he misses doses of adderall. MEDICATION SIDE EFFECTS: possibly fatigue/lethargy with Buspar OBJECTIVE DATA: COLUMBIA-SUICIDE SEVERITY RATING SCALE: - Have you ever wished that you were , or not alive anymore? Denies - Have you actually had thoughts about killing yourself? denies - Have you been thinking about how you might do this? denies - Have you had these thoughts and had some intention of acting on them? denies - Have you started to work out or worked out the details of how to kill yourself? denies - Do you intend to carry out this plan? denies - Have you done anything, started to do anything, or prepared to do anything to end your life? denies Moderate Risk: Reviewed a crisis plan with patient. Discussed risks/protective factors and reasons for living. Discussed removal of means. ROS EXAM: Negative except as described above SUBSTANCE USE: No alcohol since 2020 "I was a heavy drinker in college" Apr 2021 medical marijuana card, up to 2-3x weekly for sleep, working on decreasing use RELEVANT CHANGES IN PAST PSYCHIATRIC, MEDICAL, FAMILY OR SOCIAL HX: As described above CURRENT MEDS: Current Outpatient Medications Medication Sig Dispense Refill lamoTRIgine 100 MG Oral Tablet (LaMICtal) Take 2 Tablets by mouth in the morning. 180 Tablet 1 busPIRone HCl 30 MG Oral Tablet Take 1 Tablet by mouth in the morning and 1 Tablet before bedtime. 60 Tablet 4 Escitalopram Oxalate 20 MG Oral Tablet (Lexapro) Take 1 Tablet by mouth in the morning. 30 Tablet 5 Amphetamine-Dextroamphetamine 10 MG Oral Tablet (Adderall) Take 1 Tablet by mouth daily at noon. 30Tablet 0 Amphetamine-Dextroamphet ER 20 MG Oral Capsule Extended Release 24 Hour (Adderall XR) Take 1 Capsule by mouth in the morning 30 Capsule 0 No current facility-administered medications for this visit. ALLERGIES: Review of patient's allergies indicates: No Known Allergies RECENT LABORATORY DATA: none MENTAL STATUS EXAMINATION: Appearance: age-appropriate and casually dressed Muscle strength/tone and motor behavior: normal muscle strength and tone Gait and Station: no abnormalities noted and not tested Personal Presentation: candid and cooperative. Speech: normal, rate, tone and volume Mood: "depressed, anxious" Affect: type - anxious; range - full range; lability - no Associations: intact Thought Process: goal directed and logical Abstract Reasoning: intact Thought Content: No active or passive SI, denies plan or intent, reviewed safety plan Orientation: alert and oriented to person, place, time and situation Recent and remote memory as evidenced by recall of recent circumstances and remote life events: intact Language as evidenced by ability to repeat phrase and name object: intact Fund of knowledge as evidenced by vocabulary and current/historical events: intact Attention span/concentration as evidenced by: ability to sustain attention to examiner - intact andfollowing conversation - intact Insight: fair Judgment: fair FORMULATION: Patient is seen today for bridge appointment during Mr. Austin's absence. Patient reports recent worsening of mood, increased anxiety with excessive worry and somatization as well as depression. Patient feels holiday and time spent with family contributed to recent decompensation. We will hold off on further medication changes at this time. Patient will resume care with JEFF Austin. ASSESSMENT - DIAGNOSIS: OBDULIO, MDD rec - Differential includes Cyclothymia, Bipolar 2 Disorder, MDD PLAN: Continue lamotrigine 200 mg a day Continue BuSpar 30 mg twice a day Continue escitalopram 20 mg a day for mood Continue individual psychotherapy - We will work on reducing the need for medical marijuana for sleep in given the risks associated with concomitant use of ADHD stimulant medication, pt is in agreement with this. Also education provided regarding risks associated with marijuana use in the context of cyclical mood conditions - Encourage followup with weekly therapy Maddison Salvador at [facility] - Risks/benefits of currently prescribed psychiatric medications discussed, verbalized understanding - I have reviewed the patients controlled substance dispensing history in the Prescription Drug Monitoring Program in compliance with the [facility] regulations before prescribing a controlled substance. Crisis Planning: Raphael Christie has been provided with Psychiatry emergency telephone numbers, including crisis number, text suicide hotline and suicide hotline. The crisis plan was reviewed and updated if necessary based on the information above. Side effects of the medication were explained, and the patient understands the risks and benefits of using the medication.Patient cautioned not to drive, operate heavy machinery, or participate in other tasks requiring full cognitive alertness until they know how new medications will affect them. Pt encouraged to keep all medications out of the reach of children. Psychoeducation was provided. Discussed risks, expected benefits, and potential adverse effects from these medications. The benefits outweigh the risks.The patient participated in the development of the treatment plan, verbalized understanding, voices no concerns and is agreeable to the treatment plan. Risk Assessment: Risk assessment was performed for Raphael Christie. This is a patient being treated for chronic mental health conditions as characterized above; at the time of this visit, there was no indication that this patient was either a risk to self, others, or gravely disabled by symptomsof a mental illness. At the time of this evaluation, there were enough protective factors in place and it was deemed safe to continue with treatment on a outpatient basis with return to clinic in thetimeframe described above. Health Maintenance: Raphael Christie was encouraged to keep up to date on regular health maintenance per her primary care provider. Encouraged to keep active in productive hobbies and exercise. This helps manage emotions, improve sleep, wellbeing and overall health. Pt was cautioned to not drink alcohol or use illicit drugs as these can make mood symptoms worse by blocking the effects of prescribed medications. Avoid tobacco, which contains nicotine. Limit caffeine use. Caffeine and Nicotine are stimulants that can cause difficulty with sleep. Lack of sleep can then worsen anxiety and depression. Return in 1 months or sooner as needed. Time Spent on Visit total: 30 minutes - including preparing to see the patient, reviewing history, performing evaluation, counseling/educating patient, ordering medications/tests, documenting clinical information. 20 minutes was spent on counseling including active listening, supportive therapy, self-care, and reflection Douglas Duran MD Psychiatry 04/20/2023 documented in this encounter Plan of Treatment Health Maintenance Due Date Last Done Comments Hepatitis B (1 of 3 - 3-dose series) 1992 HIV Screening 02/10/2007 Hepatitis C Screening 02/10/2010 Depression, Most Recent Scor e >= 10 (will fire each visit until score < 10) 05/05/2022 05/04/2022 COVID-19 Vaccine (2 - 2022-2 4 season) 2022 06/26/2020 Influenza Vaccine (FLU shot) (#1) 2022 023 DTaP,Tdap,and Td Vaccines (2 - Td or Tdap) 08/25/2030 08/25/2020 GARDASIL-HPV IMMUNIZATION SERIES Aged Out No longer eligible based on patient's age to complete this topic MENINGOCOCCAL (MENACTRA/MENVEO) Aged Out No longer eligible based on patient's age to complete this topic Pneumococcal Vaccine: Pediat rics (0 to 5 Years) and At-Risk Patients (6 to 64 Years) Aged Out No longer eligi ble based on patient's age to complete this topic documented as of this encounter Medical Devices Not on filedocumented as of this encounter Visit Diagnoses Diagnosis OBDULIO (generalized anxiety disorder)- Primary Generalized anxiety disorder Attention deficit disorder (ADD) in adult documented in this encounter Care Teams Breakfast And Room Attendant Relationship Specialty Start Date End Date Tavon South MD [address] [place] [id number] PCP - General Family Medicine 07/12/20 documented as of this encounter
--- OUTSIDE RECORDS SUMMARY | 2023-05-11 02:56 | External Medical Summary | Summary of Care ---
Author Name Unknown Organization [facility] Address [address] [place] [address] Phone [phone] Care Team Providers Care Perl Programmer Name Role Phone Tavon South MD Primary Care Provider [phone] [phone] Reason for Visit * Reason Comments Medication Refill Encounter Details Date Type Department Care Team (Late st Contact Info) Description 02/24/2023 Refill Psychiatry, [facility] [address] [place] [address] Ana Viera CRNP [address] [place] [address] Allergies No known active allergiesdocumented as of this encounter (statuses as of 03/01/2023) Medications Medication Sig Dispensed Refills Start Date [...] the morning. 30 Tablet 5 02/15/2023 Active Amphetamine-Dext roamphet ER 20 MG Oral Capsule Extended Release 24 Hour (Adderall XR) Take 1 Capsule by mouth in the morning 30 Capsule 0 03/01/2023 Active Amphetamine-Dext roamphet ER 20 MG Oral Capsule Extended Release 24 Hour (Adderall XR) Take 1 Capsule by mouth in the morning 30 Capsule 0 01/25/2023 02/24/2023 Discontinued (Refill) Amphetamine-Dext roamphetamine 10 MG Oral Tablet (Adderall) Take 1 Tablet by mouth daily at noon. Do not start before December 19, 2022. 30 Tablet 0 01/25/2023 03/01/2023 Discontinued (Refill) documented as of this encounter (statuses as of 03/01/2023) Active Problems Problem Noted Date Diagnosed Date OBDULIO (generalized anxiety disorder) 05/04/2022 Attention deficit disorder (ADD) in adult 2020 Class 2 obesity due to exces s calories without serious comorbidity with body mass index (BMI) of 35.0 to 35.9 in adult 07/13/2020 Moderate episode of recurrent major depressive d isorder 06/08/2020 documented as of this encounter (statuses as of 03/01/2023) Resolved Problems Problem Noted Date Diagnosed Date Resolved Date Weight gain 06/08/2020 07/11/2020 documented as of this encounter (statuses as of 03/01/2023) Immunizations Name Administration Dates Next Due Covid-19 Ad26, Single Dose (Wes/J&J) 021 SEASONAL INFLUENZA, PF, 6 M & Above, IM , (FLULAVAL or FLUZONE) 05/04/2022 TDAP (age 10 and older)(Boostrix) 08/25/2020 [...] the money to buy more. Never true 06/08/19 21 Within the past 12 months, t he food you bought just didn't last and you didn't have money to get more. Never true 06/08/2020 Sex and Gender Information Value Date Recorded Sex Assigned at Not on file Gender Identity Not on file Sexual Orientation Not on file Job Start Date Occupation Industry Not on file Not on file Not on file documented as of this encounter Miscellaneous Notes * Telephone Encounter - Niels Benjamin CRNP - 03/01/2023 1:00 PM ESTSigned Prescriptions: Disp Refills Amphetamine-Dextroamphet ER 20 MG Oral Cap*30 Cap*0 Sig: Take 1 Capsule by mouth in the morningAuthorizing Provider: NIELS BENJAMIN * Telephone Encounter - Niels Benjamin CRNP - 03/01/2023 12:59 PM ESTSigned Prescriptions: Disp Refills Amphetamine-Dextroamphet ER 20 MG Oral Cap*30 Cap*0 Sig: Take 1 Capsule by mouth in the morning Authorizing Provider: NIELS BENJAMIN * Telephone Encounter - Denver Montez RPh - 03/01/2023 12:57 PM EST Pt called pharmacy this morning inquiring about having hgis Adderall 20mg script approved. We did receive the 10mg script. Please e-prescribe to [facility] at [facility]. Thank You. * Telephone Encounter - Rebekah Bennett OSA - 02/26/2023 9:50 AM ESTPending Prescriptions: Disp Refills Amphetamine-Dextroamphet ER 20 MG Oral Cap*30 Cap*0 Sig: Take 1 Capsule by mouth in the morning * Telephone Encounter - Rebekah Bennett OSA - 02/26/2023 9:49 AM EST Refill request from patient (Neeraj) for Adderall XR 20mg. Medication last filled on 01/25/23 with 0 refills. Patient last seen on 02/15/23 with return appointment scheduled for 04/12/23. Patient had 0 cancelled appointments and 0 NO SHOW appointments. * Telephone Encounter - Blaine Angeles OSA - 02/26/2023 8:24 AM ESTPending Prescriptions: Disp Refills Amphetamine-Dextroamphet ER 20 MG Oral Cap*30 Cap*0 Sig: Take 1Capsule by mouth in the morning documented in this encounter Plan of Treatment Upcoming Encounters Date Type Department Care Team (Late st Contact Info) Description 04/12/2023 5:00 PM EST Telemedicine Psychiatry, [place] [address] [place] [address] Douglas Duran MD [address] [place] [id number] Health Maintenance Due Date Last Done Comments [...] Not on filedocumented as of this encounter Care Teams Perl Programmer Relationship Specialty Start Date End Date Tavon South MD [address] [place] [address] PCP - General Family Medicine 07/12/20 documented as of this encounter
--- OUTSIDE RECORDS SUMMARY | 2023-05-11 02:56 | External Medical Summary | Summary of Care ---
Author Name Unknown Organization [facility] Address [address] [facility] [place] [address] Phone [phone] Care Team Providers Care Emd Teacher Name Role Phone Tavon South MD Primary Care Provider [phone] Reason for Visit * Reason Onset Date Comments Appointment 03/27/2023 Encounter Details Date Type Department Care Team (Late st Contact Info) Description 03/27/2023 Telephone Aki Orozco [address] [place] [address] Rick Austin CRNP [address] [facility] [place] [address] Appointment Allergies No known active allergiesdocumented as of this encounter (statuses as of 03/27/2023) Medications Medication Sig Dispensed Refills Start Date [...] the morning. 30 Tablet 5 02/15/2023 Active Amphetamine-Dextroam phetamine 10 MG Oral Tablet (Adderall) Take 1 Tablet by mouth daily at noon. 30 Tablet 0 03/01/2023 Active Amphetamine-Dextroam phet ER 20 MG Oral Capsule Extended Release 24 Hour (Adderall XR) Take 1 Capsule by mouth in the morning 30 Capsule 0 03/26/2023 Active documented as of this encounter (statuses as of 03/27/2023) Active Problems Problem Noted Date Diagnosed Date OBDULIO (generalized anxiety disorder) 05/04/2022 Attention deficit disorder (ADD) in adult 2020 Class 2 obesity due to exces s calories without serious comorbidity with body mass index (BMI) of 35.0 to 35.9 in adult 07/13/2020 Moderate episode of recurrent major depressive d isorder 06/08/2020 documented as of this encounter (statuses as of 03/27/2023) Resolved Problems Problem Noted Date Diagnosed Date Resolved Date Weight gain 06/08/2020 07/11/2020 documented as of this encounter (statuses as of 03/27/2023) Immunizations Name Administration Dates Next Due Covid-19 [...] encounter Miscellaneous Notes * Telephone Encounter - Jane Clement OSA - 03/27/2023 3:25 PM EST Patient is reaching out to Dr Duran first just had a med chagne and wants to see if he should continue this appt or schedule with Provider Norman. Patient will reach back out documented in this encounter Plan of Treatment Upcoming Encounters Date Type Department Care Team (Late st Contact Info) Description 04/20/2023 3:30 PM EST Telemedicine Psychiatry, [place] [address] [place] [address] Douglas Duran MD [address] [place] [address] Health Maintenance Due Date Last Done Comments [...] filedocumented as of this encounter Care Teams Emd Teacher Relationship Specialty Start Date End Date Tavon South MD [address] [place] [address] PCP - General Family Medicine 07/12/20 documented as of this encounter
--- OUTSIDE RECORDS SUMMARY | 2023-05-11 02:56 | External Medical Summary | Summary of Care ---
Author Name Unknown Organization [facility] Address [address] [place] [address] Phone [phone] Care Team Providers Care Roll Weigher Name Role Phone Tavon South MD Primary Care Provider [phone] Reason for Visit * Reason Comments Medication Refill Encounter Details Date Type Department Care Team (Late st Contact Info) Description 03/25/2023 Refill Psychiatry, [facility] [address] [place] [address] Gunnar Benjamin CRNP [address] [place] [address] Allergies No known active allergiesdocumented as of this encounter (statuses as of 03/26/2023) Medications Medication Sig Dispensed Refills Start Date [...] morning. 30 Tablet 5 02/15/2023 Active Amphetamine-Dextr oamphetamine 10 MG Oral Tablet (Adderall) Take 1 Tablet by mouth daily at noon. 30 Tablet 0 03/01/2023 Active Amphetamine-Dextr oamphet ER 20 MG Oral Capsule Extended Release 24 Hour (Adderall XR) Take 1 Capsule by mouth in the morning 30 Capsule 0 03/26/2023 Active Amphetamine-Dextr oamphet ER 20 MG Oral Capsule Extended Release 24 Hour (Adderall XR) Take 1 Capsule by mouth in the morning 30 Capsule 0 03/01/2023 03/25/2023 Discontinued (Refill) documented as of this encounter (statuses as of 03/26/2023) Active Problems Problem Noted Date Diagnosed Date OBDULIO (generalized anxiety disorder) 05/04/2022 Attention deficit disorder (ADD) in adult 2020 Class 2 obesity due to exces s calories without serious comorbidity with body mass index (BMI) of 35.0 to 35.9 in adult 07/13/2020 Moderate episode of recurrent major depressive d isorder 06/08/2020 documented as of this encounter (statuses as of 03/26/2023) Resolved Problems Problem Noted Date Diagnosed Date Resolved Date Weight gain 06/08/2020 07/11/2020 documented as of this encounter (statuses as of 03/26/2023) Immunizations Name Administration Dates Next Due Covid-19 [...] encounter Miscellaneous Notes * Telephone Encounter - Madhavi Noonan CRNP - 03/26/2023 8:37 AM ESTSigned Prescriptions: Disp Refills Amphetamine-Dextroamphet ER 20 MG Oral Cap*30 Cap*0 Sig: Take 1Capsule by mouth in the morningAuthorizing Provider: MADHAVI NOONAN documented in this encounter Plan of Treatment Upcoming Encounters Date Type Department Care Team (Late st Contact Info) Description [facility]/12[facility]2023 5:00 PM EST [facility] [address] [place] [address] Douglas Duran MD [address] [place] [address] Health Maintenance Due Date Last [...] filedocumented as of this encounter Care Teams Roll Weigher Relationship Specialty Start Date End Date Tavon South MD [address] [place] [address] PCP - General Family Medicine 07/12/20 documented as of this encounter
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
--- OUTSIDE RECORDS SUMMARY | 2023-05-11 02:57 | External Medical Summary | Summary of Care ---
Author Name Unknown Organization [facility] Address [address] [place] [address] Phone [phone] Care Team Providers Care Instructor Modeling Name Role Phone Tavon South MD Primary Care Provider [phone] Reason for Visit * Reason Comments Medication Management Encounter Details Date Type Department Care Team Description 01/05/[address] [facility] [address] [place] [address] Douglas Duran MD [address] [place] [address] OBDULIO (generalized anxiety disorder)*; Attention deficit disorder (ADD) in adult; Moderate episode of recurrent major depressive disorder (HCC) Allergies No known active allergiesdocumented as of this encounter (statuses as of 01/05/2023) Medications Medication Sig Dispensed Refills Start Date End Date Status lamoTRIgine 100 MG Oral Tablet (LaMICtal) Take 2 Tablets by mouth in the morning. 180 Tablet 1 11/28/2022 Active Amphetamine-Dext roamphet ER 20 MG Oral Capsule Extended Release 24 Hour (Adderall XR) Take 1 Capsule by mouth in the morning. Do not start before December 19, 2022. 30 Capsule 0 12/19/2022 Active Amphetamine-Dext roamphetamine 10 MG Oral Tablet (Adderall) Take 1 Tablet by mouth daily at noon. Do not start before December 19, 2022. 30 Tablet 0 12/19/2022 Active busPIRone HCl 30 MG Oral Tablet Take 1 Tablet by mouth in the morning and 1 Tablet before bedtime. 60 Tablet 4 01/05/2023 Active Escitalopram Oxalate 10 MG Oral Tablet (Lexapro) Take 1 Tablet by mouth in the morning. 30 Tablet 3 01/05/2023 Active busPIRone HCl 15 MG Oral Tablet (Buspar) Take 1 Tablet by mouth in the morning and 1 Tablet before bedtime. 180 Tablet 1 11/28/2022 01/05/2023 Discontinued (Refill) documented as of this encounter (statuses as of 01/05/2023) Active Problems Problem Noted Date OBDULIO (generalized anxiety disorder) 05/04 Attention deficit disorder (ADD) in adul t 08/25/2020 Class 2 obesity due to exces s calories without serious comorbidity with body mass index (BMI) of 35.0 to 35.9 in adult 07/13/2020 Moderate episode of recurrent major depr essive disorder 06/08/2020 documented as of this encounter (statuses as of 01/05/2023) Resolved Problems Problem Noted Date Resolved Date Weight gain 06/08/2020 07/11/2020 documented as of this encounter (statuses as of 01/05/2023) Immunizations Name Administration Dates Next Due Covid-19 Ad26, Single Dose (Wes/J&J) 021 Seasonal Influenza, PF, 6 mons & Above, IM , (Fl ulaval) 05/04/2022 TDAP (age 10 and older)(Boostrix) 08/25/2020 [...] * Patient Instructions* Douglas Duran MD - 01/05/2023 7:15 PM EDT Continue lamotrigine 200 mg a day Increase BuSpar to 15 mg 3 times a day for 7 days, then increase to 30 mg twice a day Start escitalopram 5 mg a day for 14 days then increase to 10 mg a day documented in this encounter Progress Notes * Douglas Duran MD - 01/05/2023 6:41 PM EDT Patient Location: HOME. After connecting through [employer], patient was verified with two unique identifiers. Patient (or authorized legal sales representative facility services) was then informed that this was a Telemedicine visit and being conducted confidentially over secure lines. Methods to assure confidentiality were taken. Patient acknowledged consent and understanding of privacy and security of the Telemedicine visit. The patient agreed to participate. PSYCHOTHERAPY & MEDICATION MANAGEMENT RETURN VISIT NOTE 01/05/2023 Raphael Christie CHIEF COMPLAINT: Depression, anxiety INTERVAL HISTORY: Raphael Christie is a 32 year old male presenting today for a follow-up appointment. Patient under the care of JEFF Austni and being seen today for a bridge appointment until Mr. Austin's return. Patient appears to be in moderate distress, highly anxious, tearful throughout. Feels his treatmenthasn't been helpful and that his anxiety has been increasing over the past few weeks. Now describesit as"Crippling anxiety", at times unable to even send a text message. Feels paralyzed by indecision. Most often related to fears of how he will be perceived by others. 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 Loses his train of thought some times due to anxiety. Denies having any active or passive SI, just thinks sometimes "this sucks". Sleep is poor, waking earlier than scheduled, often 2-3 hrs before his alarm. Had tried trazodone in the past but didn't like it, oversedating and caused nightmares. Reports Prozac caused panic attacks and harmful thoughts, passive SI, in the past.. Has also been feeling increasingly irritable. There has been suspicion that patient may have an underlying mood disorder per chart there are reports of some impulsivity and reckless spending. However today he denies experiencing discrete episodes of elevated mood lasting days or weeks at a time. Mentions more of a chronic mood lability with good days interspersed with more frequent bad days. Denies ever experiencing increased levels of energy , decreased need for sleep, or increased goal-directed activity. Describes chronic feeling of racing thoughts which appears to be more related to anxiety and possibly ADHD. Has been on adderall for 2-3 years - without the med feels "lethargic, with low motivation, like thinking is clouded", has racing thoughts, starting multiple tasks and not completing them. MEDICATION SIDE EFFECTS: possibly fatigue/lethargy with Buspar [...] Current Outpatient Medications Medication Sig Dispense Refill busPIRone HCl 15 MG Oral Tablet (Buspar) Take 1 Tablet by mouth in the morning and 1 Tablet before bedtime. 180 Tablet 1 lamoTRIgine 100 MG Oral Tablet (LaMICtal) Take 2 Tablets by mouth in the morning. 180 Tablet 1 Amphetamine-Dextroamphet ER 20 MG Oral Capsule Extended Release 24 Hour (Adderall XR) Take 1 Capsule by mouth in the morning. Do not start before December 19, 2022. 30 Capsule 0 Amphetamine-Dextroamphetamine 10 MG Oral Tablet (Adderall) Take 1 Tablet by mouth daily at noon. Donot start before December 19, 2022. 30 Tablet 0 No current facility-administered medications for this [...] volume Mood: sad, anxious Affect: type - anxious tearful throughout; range - full range; lability - no [...] for bridge appointment during Mr. Austin's absence. He presents in moderate distress with severe anxiety, social type, leading to worsening of his mood and feelingsof hopelessness. Discussed a variety of treatment options with the patient and he agreed to trial of Lexapro to target his mood and anxiety. Given past history of poor tolerance to these medications we will proceed with slow titration. He also agrees to try higher dose of BuSpar as he feels the medication has been somewhat helpful at its current dose. Patient denies experiencing any suicidal thoughts today, though these were reported during SSRI trial in the past. Patient agrees to reach out for help, ask for earlier appointment, if he should start having such thoughts again. Will plan for patient to continue following with this science writer until his regular provider returns from leave ASSESSMENT - DIAGNOSIS: OBDULIO, MDD rec - Differential includes Cyclothymia, Bipolar 2 Disorder, MDD PLAN: Continue lamotrigine 200 mg a day Increase BuSpar to 15 mg 3 times a day for 7 days, then increase to 30 mg twice a day Start escitalopram 5 mg a day for 14 days then increase to 10 mg a day - We will work on reducing the [...] Drug Monitoring Program in compliance with the [facility] regulations before prescribing a controlled substance. [...] self-care, and reflection Douglas Duran MD Psychiatry 01/05/2023 documented in this encounter Plan of Treatment Upcoming Encounters Date Type Specialty Care Team Description 02/15/2023 Telemedicine Psychiatry Douglas Duran MD [address] [facility] [place] [address] Health Maintenance Due Date Last Done Comments [...] disorder Attention deficit disorder (ADD) in adult Moderate episode of recurrent major depressive disorder (HCC) documented in this encounter Care Teams Instructor Modeling Relationship Specialty Start Date End Date Tavon South MD [address] [place] [address] PCP - General Family Medicine 07/12/20 documented as of this encounter
--- OUTSIDE RECORDS SUMMARY | 2023-05-11 02:57 | External Medical Summary | Summary of Care ---
Author Name Unknown Organization [facility] Address [address] [facility] [place] [address] Phone [phone] Care Team Providers Care Dye Boarding Machine Operator Name Role Phone Tavon South MD Primary Care Provider [phone] Reason for Visit * Reason Comments Medication Refill Encounter Details Date Type Department Care Team Description 11/19/2022 Refill [facility] [address] [place] [address] Tomasa Austin CRNP [address] [place] [address] Allergies No known active allergiesdocumented as of this encounter (statuses as of 11/21/2022) Medications Medication Sig Dispensed Refills Start Date End Date Status lamoTRIgine 150 MG Oral Tablet (LaMICtal) Take 1 Tablet by mouth in the morning. 30 Tablet 1 10/25/2022 Active busPIRone HCl 15 MG Oral Tablet (Buspar) Take 1 Tablet by mouth in the morning and 1 Tablet before bedtime. 60 Tablet 2 11/07/2022 Active Amphetamine-Dextr oamphet ER 20 MG Oral Capsule Extended Release 24 Hour (Adderall XR) Take 1 Capsule by mouth in the morning. 30 Capsule 0 11/21/2022 Active Amphetamine-Dextr oamphetamine 10 MG Oral Tablet (Adderall) Take 1 Tablet by mouth daily at noon. 30 Tablet 0 11/21/2022 Active Amphetamine-Dextr oamphet ER 20 MG Oral Capsule Extended Release 24 Hour (Adderall XR) Take 1 Capsule by mouth in the morning. 30 Capsule 0 10/25/2022 11/19/2022 Discontinued (Refill) Amphetamine-Dextr oamphetamine 10 MG Oral Tablet (Adderall) Take 1 Tablet by mouth daily at noon. 30 Tablet 0 10/25/2022 11/19/2022 Discontinued (Refill) documented as of this encounter (statuses as of 11/21/2022) Active Problems Problem Noted Date OBDULIO (generalized anxiety disorder) 05/04 Attention deficit disorder (ADD) in adul t 08/25/2020 Class 2 obesity due to exces s calories without serious comorbidity with body mass index (BMI) of 35.0 to 35.9 in adult 07/13/2020 Moderate episode of recurrent major depr essive disorder 06/08/2020 documented as of this encounter (statuses as of 11/21/2022) Resolved Problems Problem Noted Date Resolved Date Weight gain 06/08/2020 07/11/2020 documented as of this encounter (statuses as of 11/21/2022) Immunizations Name Administration Dates Next Due Covid-19 [...] encounter Miscellaneous Notes * Telephone Encounter - MADAI Castellon - 11/21/2022 8:19 AM EDTSigned Prescriptions: Disp Refills Amphetamine-Dextroamphet ER 20 MG Oral Cap*30 Cap*0 Sig: Take 1 Capsule by mouth in the morning.Authorizing Provider: TOMASA AUSTIN Amphetamine-Dextroamphetamine 10 MG Oral T*30 Tab*0 Sig: Take 1 Tablet by mouth daily at noon.Authorizing Provider: TOMASA AUSTIN documented in this encounter Plan of Treatment Upcoming Encounters Date Type Specialty Care Team Description 11/28/2022 Office Visit Psychiatry Tomasa Austin CRNP [address] [place] [address] Health Maintenance Due Date Last Done Comments [...] filedocumented as of this encounter Care Teams Dye Boarding Machine Operator Relationship Specialty Start Date End Date Tavon South MD [address] [address] PCP - General Family Medicine 07/12/20 documented as of this encounter
--- OUTSIDE RECORDS SUMMARY | 2023-05-11 02:57 | External Medical Summary | Summary of Care ---
Author Name Unknown Organization [facility] Address [address] [place] [address] Phone [phone] Care Team Providers Care It Assistant Name Role Phone Tavon South MD Primary Care Provider [phone] Reason for Visit * Reason Comments Medication Refill Encounter Details Date Type Department Care Team (Late st Contact Info) Description 03/01/2023 Refill Psychiatry, [facility] [address] [place] [address] Ana Viera CRNP [address] [place] [address] Allergies No known active allergiesdocumented [...] morning. 30 Tablet 5 02/15/2023 Active Amphetamine-Dext roamphetamine 10 MG Oral Tablet (Adderall) Take 1 Tablet by mouth daily at noon. Do not start before December 19, 2022. 30 Tablet 0 03/01/2023 Active Amphetamine-Dext roamphet ER 20 [...] Encounter - Niels Benjamin CRNP - 03/01/2023 12:46 PM ESTSigned Prescriptions: Disp Refills Amphetamine-Dextroamphetamine 10 MG Oral T*30 Tab*0 Sig: Take 1 Tablet by mouth daily at noon. Do not start before December 19, 2022.Authorizing Provider: NIELS BENJAMIN documented in this encounter Plan of Treatment Upcoming Encounters Date Type Department Care Team (Late st Contact Info) Description 04/12/2023 5:00 PM EST Telemedicine Psychiatry, [place] [address] [place] [address] Douglas Duran MD [address] [place] [id number] Health Maintenance Due Date Last Done Comments [...] filedocumented as of this encounter Care Teams It Assistant Relationship Specialty Start Date End Date Tavon South MD [address] [place] [address] PCP - General Family Medicine 07/12/20 documented as of this encounter
--- OUTSIDE RECORDS SUMMARY | 2023-05-11 02:57 | External Medical Summary | Summary of Care ---
Author Name Unknown Organization [facility] Address [address] [place] [address] Phone [phone] Care Team Providers Care Paper Stacker Name Role Phone Tavon South MD Primary Care Provider [phone] Reason for Visit * Reason Comments Medication Management Encounter Details Date Type Department Care Team (Late st Contact Info) Description 02/15/2023 6:30 PM EDT Telemedicine Psychiatry, [place] [address] [place] [address] Douglas Duran MD [address] [place] [address] Moderate episode of recurrent major depressive disorder (HCC)*; OBDULIO (generalized anxiety disorder); Attention deficit disorder (ADD) in adult Allergies No known active allergiesdocumented as of this encounter (statuses as of 02/15/2023) Medications Medication Sig Dispensed Refills Start Date End Date Status lamoTRIgine 100 MG Oral Tablet (LaMICtal) Take 2 Tablets by mouth in the morning. 180 Tablet 1 11/28/2022 Active busPIRone HCl 30 MG Oral Tablet Take 1 Tablet by mouth in the morning and 1 Tablet before bedtime. 60 Tablet 4 01/05/2023 Active Amphetamine-Dext roamphet ER 20 MG Oral Capsule Extended Release 24 Hour (Adderall XR) Take 1 Capsule by mouth in the morning 30 Capsule 0 01/25/2023 Active Amphetamine-Dext roamphetamine 10 MG Oral Tablet (Adderall) Take 1 Tablet by mouth daily at noon. Do not start before December 19, 2022. 30 Tablet 0 01/25/2023 Active Escitalopram Oxalate 20 MG Oral Tablet (Lexapro) Take 1 Tablet by mouth in the morning. 30 Tablet 5 02/15/2023 Active Escitalopram Oxalate 10 MG Oral Tablet (Lexapro) Take 1 Tablet by mouth in the morning. 30 Tablet 3 01/05/2023 02/15/2023 Discontinued (Refill) documented as of this encounter (statuses as of 02/15/2023) Active Problems Problem Noted Date Diagnosed Date OBDULIO (generalized anxiety disorder) 05/04/2022 Attention deficit disorder (ADD) in adult 2020 Class 2 obesity due to exces s calories without serious comorbidity with body mass index (BMI) of 35.0 to 35.9 in adult 07/13/2020 Moderate episode of recurrent major depressive d isorder 06/08/2020 documented as of this encounter (statuses as of 02/15/2023) Resolved Problems Problem Noted Date Diagnosed Date Resolved Date Weight gain 06/08/2020 07/11/2020 documented as of this encounter (statuses as of 02/15/2023) Immunizations Name Administration Dates Next Due Covid-19 [...] * Patient Instructions* Douglas Duran MD - 02/15/2023 6:54 PM EDT Continue lamotrigine 200 mg a day Continue BuSpar 30 mg twice a day Increase escitalopram to 20 mg a day for mood Continue individual psychotherapy documented in this encounter Progress Notes * Douglas Duran MD - 02/15/2023 6:56 PM EDT Patient Location: HOME. After connecting through [employer], patient was verified with two unique identifiers. Patient (or authorized legal personnel representative) was then informed that this was a Telemedicine visit and being conducted confidentially over secure lines. Methods to assure confidentiality were taken. Patient acknowledged consent and understanding of privacy and security of the Telemedicine visit. The patient agreed to participate. PSYCHOTHERAPY & MEDICATION MANAGEMENT RETURN VISIT NOTE 02/15/2023 Raphael Christie CHIEF COMPLAINT: Depression, anxiety INTERVAL HISTORY: Raphael Christie is a 32 year old male presenting today for a follow-up appointment. Patient under the care of JEFF Austin and being seen today for a bridge appointment until Mr. Austin's return. Patient reports some decrease in his anxiety overall since BuSpar increase at last appointment, though he continues to experience what he calls mini panic attacks which do not get as severe as past panic attacks. Reports mood continues to be depressed. Last week was especially difficult, was frequently tearful, feeling hopeless, feeling that I'll never get better. Feels mood worsened last week because he discussed his trauma history with his best friend and mother, which he had never done before. Sleep continues to be poor often wakening earlier than he would like. Continues to have low appetite, reports unintentional 80 lb weight loss over the past 2 years. Patient also feels that his ADHD medication isn't effective enough experiencing "brain fog", low motivation and energy. It is possible symptoms are related to his ongoing depression. Informed patientthat mood stabilization should be current priority. MEDICATION SIDE EFFECTS: possibly fatigue/lethargy with Buspar [...] before bedtime. 60 Tablet 4 Escitalopram Oxalate 10 MG Oral Tablet (Lexapro) Take 1 Tablet by mouth in the morning. 30 Tablet 3 Amphetamine-Dextroamphet ER 20 MG Oral Capsule Extended Release 24 Hour (Adderall XR) Take 1 Capsule by mouth in the morning 30 Capsule 0 Amphetamine-Dextroamphetamine 10 MG Oral [...] Speech: normal, rate, tone and volume Mood: "depressed" Affect: type - anxious; range - full [...] bridge appointment during Mr. Austin's absence. Patient appears to have responded to most recent medication adjustments, does not appear in distress during today's appointment as he did previously. Reports decrease of his anxiety. Continues to endorse depressed mood with perinatal director awakening, decreased appetite, frequent feelings of hopelessness. Tolerating medication well thus far, agrees to further Lexapro titration. We will continue to follow with patient in Mr. Austin's absence. ASSESSMENT - DIAGNOSIS: OBDULIO, MDD rec - Differential includes Cyclothymia, Bipolar 2 Disorder, MDD PLAN: Continue lamotrigine 200 mg a day Continue BuSpar 30 mg twice a day Increase escitalopram to 20 mg a day for mood Continue [...] Drug Monitoring Program in compliance with the [facility] regulations before prescribing a controlled substance. Crisis [...] self-care, and reflection Douglas Duran MD Psychiatry 02/15/2023 documented in this encounter Plan of Treatment Upcoming Encounters Date Type Department Care Team (Late st Contact Info) Description 04/12/2023 5:00 PM EST Telemedicine Psychiatry, [facility] [address] [place] [address] Douglas Duran MD [address] [place] [address] Health Maintenance Due Date Last Done Comments [...] as of this encounter Visit Diagnoses Diagnosis Moderate episode of recurrent major depressive disorder (HCC)- Primary OBDULIO (generalized anxiety disorder) Generalized anxiety disorder Attention deficit disorder (ADD) in adult documented in this encounter Care Teams Paper Stacker Relationship Specialty Start Date End Date Tavon South MD [address] [place] [address] PCP - General Family Medicine 07/12/20 documented as of this encounter
--- OUTSIDE RECORDS SUMMARY | 2023-05-11 02:57 | External Medical Summary | Summary of Care ---
Author Name Unknown Organization [facility] Address [address] [facility] [place] [address] Phone [phone] Care Team Providers Care Card Seller Name Role Phone Tavon South MD Primary Care Provider [phone] Reason for Visit * Reason Comments Anxiety Encounter Details Date Type Department Care Team Description 11/28/2022 Office Visit [facility] [address] [place] [address] Rick Austin CRNP [address] [facility] [place] [address] ADHD (attention deficit hyperactivity disorder), combined type*; [...] EDT Patient Location: HOME. After connecting through [employer], patient was verified with two unique identifiers. Patient (or authorized legal loan servicing representative) was then informed that this was a Telemedicine visit and being conducted confidentially over secure lines. Methods to assure confidentiality were taken. Patient acknowledged consent and understanding of privacy and security of the Telemedicine visit. The patient agreed to participate. PSYCHOTHERAPY & MEDICATION MANAGEMENT RETURN VISIT NOTE Psychiatry, [facility] [address] [facility] [place] [address] 11/28/2022 Raphael Christie CHIEF COMPLAINT: Depression, anxiety [...] Denies history of inpatient treatment. 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 [...] Drug Monitoring Program in compliance with the [facility] regulations before prescribing a controlled substance. Crisis [...] therapy, self-care, and reflection Rick Austin, MSN, ANCHORER, PMHNP- Nurse Practitioner - Outpatient Psychiatry [place], [place] 11/28/2022 documented in this encounter Plan [...] disorder documented in this encounter Care Teams Card Seller Relationship Specialty Start Date End Date Tavon South MD [address] [place] [address] PCP - General Family Medicine 07/12/20 documented as of this encounter
--- OUTSIDE RECORDS SUMMARY | 2023-05-11 02:57 | External Medical Summary | Summary of Care ---
Author Name Unknown Organization [facility] Address [address] [place] [address] Phone [phone] Care Team Providers Care Computer Engineering Technologist Name Role Phone Tavon South MD Primary Care Provider [phone] Reason for Visit * Reason Comments Medication Refill Encounter Details Date Type Department Care Team Description 01/25/2023 Refill PsychiatryAki [address] [place] [address] Rick Austin CRNP [address] [facility] [address] Allergies No known active allergiesdocumented as of this encounter (statuses as of 01/25/2023) Medications Medication Sig Dispensed Refills Start Date [...] the morning. 30 Tablet 3 01/05/2023 Active Amphetamine-Dext roamphet ER 20 MG Oral Capsule Extended Release 24 Hour (Adderall XR) Take 1 Capsule by mouth in the morning 30 Capsule 0 01/25/2023 Active Amphetamine-Dext roamphetamine 10 MG Oral Tablet (Adderall) Take 1 Tablet by mouth daily at noon. Do not start before December 19, 2022. 30 Tablet 0 01/25/2023 Active Amphetamine-Dext roamphet ER 20 MG Oral Capsule Extended Release 24 Hour (Adderall XR) Take 1 Capsule by mouth in the morning. Do not start before December 19, 2022. 30 Capsule 0 12/19/2022 01/25/2023 Discontinued (Refill) Amphetamine-Dext roamphetamine 10 MG Oral Tablet (Adderall) Take 1 Tablet by mouth daily at noon. Do not start before December 19, 2022. 30 Tablet 0 12/19/2022 01/25/2023 Discontinued (Refill) documented as of this encounter (statuses as of 01/25/2023) Active Problems Problem Noted Date OBDULIO (generalized anxiety disorder) 05/04 Attention deficit disorder (ADD) in adul t 08/25/2020 Class 2 obesity due to exces s calories without serious comorbidity with body mass index (BMI) of 35.0 to 35.9 in adult 07/13/2020 Moderate episode of recurrent major depr essive disorder 06/08/2020 documented as of this encounter (statuses as of 01/25/2023) Resolved Problems Problem Noted Date Resolved Date Weight gain 06/08/2020 07/11/2020 documented as of this encounter (statuses as of 01/25/2023) Immunizations Name Administration Dates Next Due Covid-19 [...] Miscellaneous Notes * Telephone Encounter - MADAI Donnelly - 01/25/2023 3:31 PM EDTSigned Prescriptions: Disp Refills Amphetamine-Dextroamphet ER 20 MG Oral Cap*30 Cap*0 Sig: Take 1 Capsule by mouth in the morning. Do not start before December 19, 2022.Authorizing Provider: MADHAVI NOONAN Amphetamine- Dextroamphetamine 10 MG Oral T*30 Tab*0 Sig: Take 1 Tablet by mouth daily at noon. Do not start before December 19, 2022.Authorizing Provider: MADHAVI NOONAN documented in this encounter Plan of Treatment Upcoming Encounters Date Type Specialty Care Team Description 02/15/2023 Telemedicine Psychiatry Douglas Duran MD [address] [place] [address] Health Maintenance Due Date Last [...] filedocumented as of this encounter Care Teams Computer Engineering Technologist Relationship Specialty Start Date End Date Tavon South MD [address] [place] [address] PCP - General Family Medicine 07/12/20 documented as of this encounter
[2023-05-11] MEDS: KETOROLAC TROMETHAMINE 15 MG/ML VIAL IV PRN ×2 (03:09→21:11)
[2023-05-11] MEDS: PROMETHAZINE HCL 6.25 MG in SODIUM CHLORIDE 0.9% 50 ML IV PRN ×2 (03:10→21:09)
[2023-05-11] MEDS ORDERED: LACTATED RINGER'S 1,000 ML IV ONE (04:00)
[2023-05-11 06:50] LABS: BUN Creatinine Ratio 12.7 (10-20); Calcium 8.5 mg/dl (8.6-10.3); Creatinine Clr Calc Pharmacy 139.9 ml/min; Est GFR (African American) 138.7 ml/min; Est GFR (Non-African American) 119.7 ml/min; Potassium 3.7 mmol/L (3.5-5.1)
[2023-05-11 07:03] LABS: Hematocrit (blood only) 41.5 % (42.0-52.0); Hemoglobin 14.5 g/dl (14.0-18.0); Mean Corpuscular Hemoglobin 29.7 pg (25.0-34.0); Mean Corpuscular Hgb Conc 34.9 g/dL (32.0-36.0); Mean Platelet Volume 10.3 fL (9.4-12.4); Platelet Count 227 K/uL (130-400); RDW Coefficient of Variation 12.3 % (11.5-14.5); RDW Standard Deviation 38.2 fL (36.4-46.3); Red Blood Count 4.88 M/uL (4.70-6.10); White Blood Count 14.33 K/ul (4.8-10.8)
[2023-05-11 07:04] LABS: Basophils # (auto) 0.01 K/uL (0.00-0.20); Basophils % (auto) 0.1 %; Immature Granulocytes # (auto) 0.06 K/uL (0.01-0.20); Immature Granulocytes % (auto) 0.4 %; Lymphocytes # (auto) 0.83 K/uL (1.20-3.40); Lymphocytes % (auto) 5.8 %; Monocytes # (auto) 0.37 K/uL (0.11-0.59); Monocytes % (auto) 2.6 %; Neutrophils # (auto) 13.06 K/uL (1.40-6.50); Neutrophils % (auto) 91.1 %
--- NOTE | 2023-05-11 07:14 | XRay Report ---
XR chest 1V portable CLINICAL HISTORY: Chest pain. COMPARISON STUDY: Chest radiograph December 08, 2019. FINDINGS: Lung volumes are normal. Lungs are clear. There is no pneumothorax or pleural effusion. Car diac size is normal. Mediastinal contours are normal. Indistinctness of the aortic knob is unchanged. There is no evidence for pulmonary edema. IMPRESSION: No acute cardiopulmonary findings. ACT 112: Negative or not required by law. Electronically signed by: Andre Lim M.D. 05/11/2023 7:12 AM
[2023-05-11] MEDS ORDERED: diphenhydrAMINE 50 MG/ML VIAL IV STA (08:58)
[2023-05-11] MEDS: busPIRone 15 MG TAB PO SCH ×2 (09:15→21:12)
[2023-05-11] MEDS: ESCITALOPRAM OXALATE 20 MG TAB PO SCH (09:16)
[2023-05-11] MEDS: DEXTROAMPHETAMINE/AMPHETAMINE ER 20 MG CAP PO SCH (09:16)
[2023-05-11] MEDS: lamoTRIgine 100 MG TAB PO SCH (09:17)
[2023-05-11] MEDS: ENOXAPARIN INJ 40 MG/0.4 ML SYR SQ SCH (09:19)
--- NOTE | 2023-05-11 12:27 | Gastrointestinal Consultation ---
Date of Consultation May 11, 2023 Assessment & Plan (1) Colitis: Pt is a 33 yo male w symptoms of n/v, diarrhea w mild hematochezia, noted to have non specific colitis on CT scan. DDX: infectious colitis, IBD, less likely malignancy - CL diet, advance as tolerated - Check stool cx and Cdiff to r/o infections - IVF support if not tolerating PO - Given increased WBC ct, will initiate Cipro/Flagyl - OP colonoscopy in 6-8 week's time - Pls recall over the weekend PRN Supervising Physician Co-Signing Physician Notes I saw and evaluated the patient presented to the emergency room. Onset nausea, vomiting and diarrhea. Imaging does show inflammatory changes within the colon. The patient reports that he started feeling sick today with management. He denies having any hematochezia. Patient presenting with signs and symptoms suggestive of viral management given the leukocytosis recommend empirically broad-spectrum antibiotics The patient is improving with Conservative management thus we will not plan for endoscopic intervention Stool studies to include C. difficile PCR and stool culture Empiric coverage with ciprofloxacin and metronidazole given the fact blood cell count of 20 Outpatient colonoscopy to be scheduled in 4 to 6 weeks Continue with IV hydration overnight if patient feeling improved on Sunday may consider early discharge please call with any questions or concerns History of Present Illness Reason for Consultation: Colitis Requesting Physician: Dr. Ashlee Hurtado Attending Physician: Dr. Delano Mckoy History of Present Illness Pt is a 33 yo male w PMHx of anxiety and mood disorder, ADHD who presented last night w c/o epigastric and flank pain, chills, n/v and diarrhea. He's had intermittent hematochezia in the past which he attributed to fissures. Did have an episode of hematochezia with this episode of diarrhea but blood only visible when he wipes. He denies any hematemesis, coffee ground emesis or melena. On eval, he has leukocytosis, no electrolyte derrangement, renal dysfunction. LFTs, lipase normal. CT abd/pelvis w wall thickening on ascending and transverse colon consistent w mild colitis. He denies recent antibx, travels. 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 Denies undercooked or raw foods. No prior hx of abd surgery, or colonoscopy. Grandfather w hx of ? colon issues or cancer in his 70s. Denies family hx of IBD. Allergies Allergy/AdvReac Type Severity Reaction Status Date / Time No Known Allergies Allergy Unverified 05/10/23 23:02 Home Medications Medication Instructions Recorded Confirmed Type buspirone 30 mg tablet 30 mg PO BID 05/10/23 05/10/23 History dextroamphetamine-amphetamine 10 10 mg PO .DAILY AT NOON 05/10/23 05/10/23 History mg tablet dextroamphetamine-amphetamine ER 20 mg PO QAM 05/10/23 05/10/23 History 20 mg 24hr capsule,extend release escitalopram oxalate 20 mg tablet 20 mg PO DAILY 05/10/23 05/10/23 History lamotrigine 100 mg tablet 200 mg PO QAM 05/10/23 05/10/23 History Patient History Medical History (Updated 05/11/23 @ 10:17 by Vivek Roper MD) Anxiety and depression Testicular torsion Surgical History (Updated 05/10/23 @ 21:42 by Dagmar Ramirez PA-C) No significant past surgical history Social History Smoking Status: Never smoker Second Hand Exposure: No; Do You Dip or Chew Tobacco: No; Hx Alcohol Use: No Hx Substance Use: Yes Last Used Substance: Days (ago) Last Used Substance Other:: 2 days ago Preferred Language: Colombian Communication Ability: Effective Catheter Finisher And Inspector Required: No Beliefs That Will Affect Care: None Current Living Situation: Alone Other Information That Helps Us Care for You: No Feels Safe at Home: Yes Safety Concerns: Feels Safe At This Time Assistive Devices: None Review of Systems Review of Systems: All systems reviewed & are unremarkable except as noted in HPI & below Physical Exam Constitutional: WD/WN, vitals as above well groomed, cooperative and comfortable Eyes: PERRL, conjunctivae normal, anicteric sclerae ENMT: external ear and nose normal, oropharynx normal Respiratory: normal respiratory effort, lungs clear to auscultation Cardiovascular: RRR, no murmur, no edema Gastrointestinal (Abdomen): BS hypoactive, slight TTP upper abd area, soft Skin: no rashes, warm and dry no jaundice Psychiatric: A+Ox3, euthymic affect Lymphatic: no lymphedema Results & Data Vital Signs (Past 12 Hours) Vital Signs Temp Pulse Resp BP Pulse Ox O2 Del Method 05/11/23 07:00 36.9 C 83 16 125/74 98 Room Air 05/11/23 03:18 Room Air 05/11/23 03:18 37.1 C 77 18 124/78 100 Room Air 05/11/23 03:15 37.1 C 77 18 124/78 100 Room Air 05/11/23 01:00 62 18 122/72 100 Room Air
[2023-05-11] MEDS: DEXTROAMPHETAMINE/AMPHETAMINE IR 10 MG TAB PO SCH (12:55)
--- NOTE | 2023-05-11 13:34 | Communication Note ---
Date of Service: May 11, 2023 Evaluated patient post admission. States pain/symptoms marginally better. No BM since admission. Reports nausea, but reduced vomiting. VS stable. Labs with downtrend WBC. CT imaging reviewed with ascending colon/transverse colon thickening. #Acute diarrhea, c/f colitis Given locality age and gender, consulted GI. -Stool cultures/c diff ordered on admission awaiting BM -Hold abx -Ensure OP colonoscopy as IBD on differential -Monitor IVF, discontinue when PO intake better #Depression #ADHD -Continue home buspar, dextroamphetamine-amphetamine, escitalopram, lamotrigine DVT lovenox Dispo OBS, contingent on PO intake, symptom resolution
[2023-05-11] MEDS: CIPROFLOXACIN / D5W 400 MG/200 ML BAG IV SCH (15:49)
[2023-05-11] MEDS: metroNIDAZOLE 500 MG/100 ML BAG IV SCH ×2 (16:03→23:03)
--- NOTE | 2023-05-11 17:27 | Electrocardiogram Report ---
Test Reason : Blood Pressure : / mmHG Vent. Rate : 076 BPM Atrial Rate : 076 BPM P-R Int : 138 ms QRS Dur : 076 ms QT Int : 394 ms P-R-T Axes : 047 061 046 degrees QTc Int : 443 ms Normal sinus rhythm Normal ECG When compared with ECG of 08-DEC-2019 07:38, No significant change was found Confirmed by Christopher Mariee ([id number]) on 05/11/2023 5:27:03 PM Referred By: REFERRED SELF Confirmed By:Bentley Mariee
[2023-05-11] MEDS ORDERED: diphenhydrAMINE Capsule 25 MG CAP PO ONE (19:42)
[2023-05-12] MEDS: CIPROFLOXACIN / D5W 400 MG/200 ML BAG IV SCH ×2 (02:55→15:04)
[2023-05-12] MEDS: metroNIDAZOLE 500 MG/100 ML BAG IV SCH ×3 (06:19→22:49)
[2023-05-12 07:09] LABS: Hematocrit (blood only) 42.7 % (42.0-52.0); Hemoglobin 14.6 g/dl (14.0-18.0); Mean Corpuscular Hgb Conc 34.2 g/dL (32.0-36.0); Mean Corpuscular Volume 87.9 fL (80.0-100.0); Mean Platelet Volume 10.1 fL (9.4-12.4); Platelet Count 228 K/uL (130-400); RDW Coefficient of Variation 12.9 % (11.5-14.5); RDW Standard Deviation 41.4 fL (36.4-46.3); Red Blood Count 4.86 M/uL (4.70-6.10); White Blood Count 9.12 K/ul (4.8-10.8)
[2023-05-12 07:22] LABS: BUN Creatinine Ratio 8.8 (10-20); Calcium 8.9 mg/dl (8.6-10.3); Creatinine Clr Calc Pharmacy 108.3 ml/min; Est GFR (Non-African American) 97.5 ml/min; Magnesium 1.8 mg/dl (1.7-2.4); Phosphorus 3.1 mg/dl (2.5-4.9); Potassium 3.5 mmol/L (3.5-5.1)
[2023-05-12] MEDS: DEXTROAMPHETAMINE/AMPHETAMINE ER 20 MG CAP PO SCH (09:04)
[2023-05-12] MEDS: lamoTRIgine 100 MG TAB PO SCH (09:04)
[2023-05-12] MEDS: busPIRone 15 MG TAB PO SCH ×2 (09:04→19:33)
[2023-05-12] MEDS: ENOXAPARIN INJ 40 MG/0.4 ML SYR SQ SCH (09:05)
[2023-05-12] MEDS: ESCITALOPRAM OXALATE 20 MG TAB PO SCH (09:05)
[2023-05-12] MEDS ORDERED: MAGNESIUM HYDROXIDE SUSP 30 ML UDC PO ONE (10:10)
--- NOTE | 2023-05-12 14:19 | Hospitalist Progress Note ---
Date of Service May 12, 2023 Assessment & Plan (1) Colitis: Plan: Patient presented with epigastric and left flank pain. Associated with vomiting and watery diarrhea. Leukocytosis present on admission. CT abdomen and pelvis; wall thickening of ascending and transverse colon concerning for mild colitis. Urinalysis negative for infection GI on consult; on ciprofloxacin and Flagyl. Advance diet as tolerated. Patient continues to have pain; will monitor for recurrence of pain while on full liquid diet. May need repeat GI evaluation persistent abdominal pain and discomfort. ADHD/anxiety/mood disorder, at baselinecontinue on home meds DVT prophylaxis. Lovenox subcu Full code Please note the above document was generated using voice recognition software. It may contain grammatical, syntax or spelling errors. Any formal questions or concerns about the content, text or information contained within the body of this dictation should be directly addressed to the provider for clarification . Admission and Anticipated Discharge Date Admission Date: May 11, 2023 Subjective Patient seen and examined at bedside. He continues to report pain and discomfort in left lower quadrant. No significant overnight events. No bowel movement yet. Review of Systems Review of Systems: All systems reviewed & are unremarkable except as noted in Subjective Physical Exam Physical Exam: Constitutional: Alert oriented x 3; not in distress. Respiratory: Bilateral vesicular breath sounds. Cardiovascular: RRR, no murmur, no edema Vessels: no JVD or carotid bruit Chest: normal inspection of chest Abdomen: Tenderness present in left lower quadrant. Musculoskeletal: no cyanosis or clubbing, extremities motor strength 5/5 Skin: no rashes, warm and dry normal turgor Neurologic: PERRL, EOMI, accommodation nl, no face palsy, no dysarthria CN's II- XI intact bilaterally and moves all extremities Psychiatric: A+Ox3, euthymic affect Results & Data Results & Data Vital Signs (Past 12 Hours) Vital Signs Temp Pulse Resp BP Pulse Ox O2 Del Method 05/12/23 08:01 36.6 C 58 L 16 130/85 99 Room Air
[2023-05-12 14:28] LABS: Cdiff Antigen Positive; Cdiff Toxin A+B Negative Cdiff Toxin (Negative); Cdiff Toxin B Gene (2yr or >) Positive Cdiff Gene (Neg)
[2023-05-12 14:34] LABS: Adenovirus F 40/41 PCR Not Detected (NotDetected); Astrovirus PCR Not Detected (NotDetected); Campylobacter PCR Not Detected (NotDetected); Cryptosporidium PCR Not Detected (NotDetected); Cyclospora cayetanensis PCR Not Detected (NotDetected); Entamoeba histolytica PCR Not Detected (NotDetected); Enteroaggregative E.coli(EAEC) Not Detected (NotDetected); Enteropathogenic E.coli (EPEC) Not Detected (NotDetected); Enterotoxigenic E.coli (ETEC) Not Detected (NotDetected); Giardia lamblia PCR Not Detected (NotDetected); Norovirus GI/GII PCR Not Detected (NotDetected); Plesiomonas shigelloides PCR Not Detected (NotDetected); Rotavirus A PCR Not Detected (NotDetected); Salmonella PCR Not Detected (NotDetected); Sapovirus PCR Not Detected (NotDetected); Shiga-like Toxin E.coli (STEC) Not Detected (NotDetected); Shigella/Enteroinvasive E.coli Not Detected (NotDetected); Vibrio cholerae PCR Not Detected (NotDetected); Vibrio species PCR Not Detected (NotDetected); Yersinia enterocolitica PCR Not Detected (NotDetected)
[2023-05-12] MEDS: DEXTROAMPHETAMINE/AMPHETAMINE IR 10 MG TAB PO SCH (15:03)
[2023-05-12] MEDS: VANCOMYCIN HCL 125 MG/2.5ML SOLN PO SCH ×2 (17:50→22:49)
[2023-05-12] MEDS: CHERRY SYRUP 5 ML UDP PO SCH ×2 (17:50→22:49)
[2023-05-12] MEDS: KETOROLAC TROMETHAMINE 15 MG/ML VIAL IV PRN (19:33)
[2023-05-12] MEDS: LORazepam 0.5 MG in SYRINGE 0.25 ML IV PRN (22:49)
[2023-05-12] MEDS ORDERED: diphenhydrAMINE Capsule 25 MG CAP PO PRN (23:59)
[2023-05-13] MEDS: CIPROFLOXACIN / D5W 400 MG/200 ML BAG IV SCH (04:10)
[2023-05-13] MEDS: metroNIDAZOLE 500 MG/100 ML BAG IV SCH (06:07)
[2023-05-13] MEDS: VANCOMYCIN HCL 125 MG/2.5ML SOLN PO SCH ×2 (06:08→11:58)
[2023-05-13] MEDS: CHERRY SYRUP 5 ML UDP PO SCH ×2 (06:08→11:58)
[2023-05-13 07:00] LABS: Basophils # (auto) 0.03 K/uL (0.00-0.20); Basophils % (auto) 0.4 %; Eosinophils # (auto) 0.05 K/uL (0.00-0.50); Eosinophils % (auto) 0.6 %; Hematocrit (blood only) 41.6 % (42.0-52.0); Hemoglobin 14.6 g/dl (14.0-18.0); Immature Granulocytes # (auto) 0.02 K/uL (0.01-0.20); Immature Granulocytes % (auto) 0.2 %; Lymphocytes # (auto) 2.23 K/uL (1.20-3.40); Lymphocytes % (auto) 27.4 %; Mean Corpuscular Hemoglobin 29.6 pg (25.0-34.0); Mean Corpuscular Hgb Conc 35.1 g/dL (32.0-36.0); Mean Corpuscular Volume 84.4 fL (80.0-100.0); Mean Platelet Volume 9.8 fL (9.4-12.4); Monocytes # (auto) 0.57 K/uL (0.11-0.59); Neutrophils # (auto) 5.23 K/uL (1.40-6.50); Neutrophils % (auto) 64.4 %; Platelet Count 223 K/uL (130-400); RDW Coefficient of Variation 12.4 % (11.5-14.5); RDW Standard Deviation 37.6 fL (36.4-46.3); Red Blood Count 4.93 M/uL (4.70-6.10); White Blood Count 8.13 K/ul (4.8-10.8)
[2023-05-13 07:33] LABS: BUN Creatinine Ratio 9.9 (10-20); Calcium 8.8 mg/dl (8.6-10.3); Creatinine Clr Calc Pharmacy 121.4 ml/min; Est GFR (African American) 129.7 ml/min; Est GFR (Non-African American) 111.9 ml/min; Potassium 3.2 mmol/L (3.5-5.1)
[2023-05-13] MEDS: ENOXAPARIN INJ 40 MG/0.4 ML SYR SQ SCH (08:47)
[2023-05-13] MEDS: lamoTRIgine 100 MG TAB PO SCH (08:48)
[2023-05-13] MEDS: LORazepam 0.5 MG in SYRINGE 0.25 ML IV PRN (08:48)
[2023-05-13] MEDS: ESCITALOPRAM OXALATE 20 MG TAB PO SCH (08:48)
[2023-05-13] MEDS: DEXTROAMPHETAMINE/AMPHETAMINE ER 20 MG CAP PO SCH (08:49)
[2023-05-13] MEDS: busPIRone 15 MG TAB PO SCH (11:59)
[2023-05-13] MEDS: DEXTROAMPHETAMINE/AMPHETAMINE IR 10 MG TAB PO SCH (11:59)
--- NOTE | 2023-05-13 14:15 | Hospitalist Progress Note ---
Date of Service May 13, 2023 Assessment & Plan (1) Colitis: Plan: Patient presented with epigastric and left flank pain. Associated with vomiting and watery diarrhea. Leukocytosis present on admission. CT abdomen and pelvis; wall thickening of ascending and transverse colon concerning for mild colitis. Urinalysis negative for infection C. difficile gene positive, toxin negative. Given patient is symptomatic with abdominal pain, liquidy diarrhea; was started on oral vancomycin for possible C. difficile colitis. Discontinue ciprofloxacin and Flagyl. Will need GI reevaluation if abdominal pain/diarrhea continues Diet advance as tolerated to regular diet. Patient continues to have pain; will monitor for recurrence of pain while on full liquid diet. Needs follow-up as outpatient for colonoscopy. ADHD/anxiety/mood disorder, at baselinecontinue on home meds DVT prophylaxis. Lovenox subcu Full code Dispositionpatient admitted for possible C. difficile colitis with multiple episode of diarrhea. Continue oral vancomycin; possible DC in a.m. if abdominal pain/diarrhea has improved. Please note the above document was generated using voice recognition software. It may contain grammatical, syntax or spelling errors. Any formal questions or concerns about the content, text or information contained within the body of this dictation should be directly addressed to the provider for clarification . Admission and Anticipated Discharge Date Admission Date: May 11, 2023 Subjective Patient reports multiple episodes of liquidy diarrhea yesterday. Also reports left-sided cramping abdominal pain. Review of Systems Review of Systems: All systems reviewed & are unremarkable except as noted in Subjective Physical Exam Physical Exam: Constitutional: Alert oriented x 3; not in distress. Respiratory: Bilateral vesicular breath sounds. Cardiovascular: RRR, no murmur, no edema Vessels: no JVD or carotid bruit Chest: normal inspection of chest Abdomen: Tenderness present in left lower quadrant. Musculoskeletal: no cyanosis or clubbing, extremities motor strength 5/5 Skin: no rashes, warm and dry normal turgor Neurologic: PERRL, EOMI, accommodation nl, no face palsy, no dysarthria CN's II- XI intact bilaterally and moves all extremities Psychiatric: A+Ox3, euthymic affect Results & Data Results & Data Vital Signs (Past 12 Hours) Vital Signs Temp Pulse Resp BP Pulse Ox O2 Del Method 05/13/23 08:43 36.7 C 76 18 115/78 98 Room Air
--- NOTE | 2023-05-13 15:20 | Discharge Summary ---
Date of Service May 13, 2023 Admission HPI Per Admitting Provider History obtained from patient and records. Medical history significant for ADHD, anxiety/mood disorder. 1 day history of achy epigastric/left flank pain complaints associated with bilious emesis and watery diarrhea. 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 No recent antibiotics, out-of-town travel, new restaurants. No chest pain, no SOB. Medical History as above No previous colonoscopies. 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 difficile colitis Discharge Exam Constitutional: Alert oriented x 3; not in distress. Respiratory: Bilateral vesicular breath sounds. Cardiovascular: RRR, no murmur, no edema Vessels: no JVD or carotid bruit Chest: normal inspection of chest Abdomen: Mild tenderness in left lower quadrant. Bowel sound present Musculoskeletal: no cyanosis or clubbing, extremities motor strength 5/5 Skin: no rashes, warm and dry normal turgor Neurologic: PERRL, EOMI, accommodation nl, no face palsy, no dysarthria CN's II- XI intact bilaterally and moves all extremities Psychiatric: A+Ox3, euthymic affect Discharge Data Allergies Allergy/AdvReac Type Severity Reaction Status Date / Time No Known Allergies Allergy Unverified 05/10/23 23:02 Consultations 05/10/23 22:59 ED Decision to Admit Stat 05/11/23 11:34 Consult Gastroenterology Routine Ordered Studies 05/10/23 16:51 CT abd pelvis IV con only Stat Hospital Course (1) Colitis: Patient presented with epigastric and left flank pain. Associated with vomiting and watery diarrhea. Leukocytosis present on admission. Resolved on subsequent lab work. CT abdomen and pelvis; wall thickening of ascending and transverse colon concerning for mild colitis. Urinalysis negative for infection C. difficile gene positive, toxin negative. Given patient is symptomatic with abdominal pain, liquidy diarrhea; was started on oral vancomycin for possible C. difficile colitis. Discussion was done with the patient; he was agreeable with it. Patient reported improvement in abdominal pain during the hospitalization. Patient was discharged on oral vancomycin. Patient to follow-up with PCP. Needs follow-up as outpatient for colonoscopy. Please note the above document was generated using voice recognition software. It may contain grammatical, syntax or spelling errors. Any formal questions or concerns about the content, text or information contained within the body of this dictation should be directly addressed to the provider for clarification . Total Time Total Time Spent Total Time Spent (In Minutes): 34 Total Time Includes: Examination of the Patient, Discharge Planning, Medication Reconciliation, Communication With Other Providers and Other Discharge Plan Discharge Items Patient Disposition: Home - Self-Care Reason For Visit: ABDOMINAL PAIN Discharge Diagnosis: C. difficile colitis Activity: Resume your previous activity Non-emergency contact: Primary Care Provider Call non-emergency contact if: you have any medication questions and your symptoms worsen Follow-up/Referrals: Tavon South MD [Primary Care Provider] - Diet: Regular Addtl Attending Provider Instructions: You were admitted to the hospital due to abdominal pain. CT abdomen and pelvis showed wall thickening of the ascending and transverse Concerning for mild colitis. Stool studies showed that C. difficile gene was positive while toxin were negative. You are a started on treatment with oral vancomycin due to suspicion of C. difficile colitis. You are prescribed oral vancomycin 125 mg to be taken every 6 hours for 9 days. You can take Tylenol 500 mg as needed every 6 hours for abdominal pain. Please follow-up with PCP sometime this week. An appointment will be set up for you. Please obtain GI referral for outpatient colonoscopy in 6 to 8 weeks time to evaluate for inflammatory bowel disease. Pending Studies at Discharge: No Stand-Alone Forms: [employer], Work/School Release, Smoking Cessation Medications and DC Order Prescriptions: New vancomycin 125 mg capsule 125 mg PO Q6H 10 Days Qty: 40 0RF Continued dextroamphetamine-amphetamine 10 mg tablet 10 mg PO .DAILY AT NOON escitalopram oxalate 20 mg tablet 20 mg PO DAILY buspirone 30 mg tablet 30 mg PO BID lamotrigine 100 mg tablet 200 mg PO QAM dextroamphetamine-amphetamine 20 mg capsule,extended release 24hr 20 mg PO QAM Discharge Orders: Discharge Order (Routine); Ordered 05/13/23 Ordered By: Eber Sykes Admission Data Admit Date/Time: 05/11/23 01:47 Attending Provider: Eber Sykes Admit Provider: Vivek Roper Primary Care Provider: Tavon South Other Providers: Vivek Roper; Delano Mckoy
== END 2023-05-13 16:33 | disposition home or self-care (01) ==
LOC: ED 16:12 → SUATTDRO 05-11 01:47 → 3W 05-11 01:47 → INTOOBSV 05-11 01:47 → 3W 05-11 02:23
DX: Z79.899 Other long term (current) drug therapy; A04.72 Enterocolitis due to Clostridium difficile, not specified as recurrent; F32.A Depression, unspecified; E86.0 Dehydration; F90.9 Attention-deficit hyperactivity disorder, unspecified type

== ENCOUNTER 2023-07-08 17:21 | Inpatient (IN) ==
--- OUTSIDE RECORDS SUMMARY | 2023-07-08 17:27 | External Medical Summary | Summary of Care ---
Author Name Unknown Organization [facility] Address [address] [place] [address] Phone [phone] Care Team Providers Care Schedule Manager Name Role Phone Tavon South MD Primary Care Provider [phone] Reason for Visit * Reason Onset Date Comments Hospital Follow-Up 05/14/2023 [facility]JANDRA for [facility] Encounter Details Date Type Department Care Team (Late st Contact Info) Description 05/14/2023 Telephone Ancillary [facility] [address] [facility] [place] [address] Kavita Kunz RN Hospital Follow-Up (ALEJANDRA for [facility]/) Allergies No known active allergiesdocumented as of this encounter (statuses as of 05/15/2023) Medications Medication Sig Dispensed Refills Start Date [...] at noon. 30 Tablet 0 04/20/2023 Active Vancomycin HCl 125 MG Oral Capsule (Vancocin) Take 1 Capsule by mouth every 6 hours. 0 05/13/2023 Active Amphetamine-Dextr oamphet ER 20 MG Oral Capsule Extended Release 24 Hour (Adderall XR) Take 1 Capsule by mouth in the morning 30 Capsule 0 03/26/2023 05/15/2023 Discontinued (Refill) documented as of this encounter (statuses as of 05/15/2023) Active Problems Problem Noted Date Diagnosed Date OBDULIO (generalized anxiety disorder) 05/04/2022 Attention deficit disorder (ADD) in adult 2020 Class 2 obesity due to exces s calories without serious comorbidity with body mass index (BMI) of 35.0 to 35.9 in adult 07/13/2020 Moderate episode of recurrent major depressive d isorder 06/08/2020 documented as of this encounter (statuses as of 05/15/2023) Resolved Problems Problem Noted Date Diagnosed Date Resolved Date Weight gain 06/08/2020 07/11/2020 documented as of this encounter (statuses as of 05/15/2023) Immunizations Name Administration Dates Next Due Covid-19 [...] encounter Miscellaneous Notes * Telephone Encounter - Kavita Kunz RN - 05/15/2023 2:02 PM EST Patient notified and he is still not vomitting, only diarrhea after meals, he will try the Brat diet, and is aware if symptoms worsen he is to go back to the hospital. Patient ok with advice. * Telephone Encounter - Tavon South MD - 05/14/2023 4:26 PM EST Can't give much advice until I see him and evaluate. If he's not stable enough to get from the hospital to the hospital follow up visit with the directions he was given at discharge, then he needs togo back to the hospital. Ensure BRAT diet, etc, usually diarrhea advice. Dr. South * Telephone Encounter - Kavita Kunz RN - 05/14/2023 3:47 PM EST Transitions of Care Note Reason for Referral:Recent Admission Phone visit for follow up: alejandra Admitted to: [facility], Date: 05.11.23 Discharged to: home, Date: 05.13.23 Diagnosis driving hospitalization: colitis likely C diff C dif gene positive, toxin neg Source/Contact: Patient SUBJECTIVE Consent: Verbal consent for review of hospital discharge: Yes REVIEW OF SYSTEMS Patient/Other Reports: Current patient/caregiver problems or concerns: patient continues to have really bad diarrhea CV: Denies problems Pulmonary: Denies problems Chills/Sweats/Fever:Denies chills/sweats Denies fever Appetite:Denies problems such as nausea, vomiting, burning, decreased appetite, patient states he does have an appetite. Current diet: bland, patient did have apple sauce, broth Bowel: continues to have "really bad" diarrhea about an hour after every meal. Patient has not had multiple episodes, once after breakfast and once after lunch. Patient has noticed some spotting withwiping, probably due to irritation. Patient denies any blood in the stool Bladder: denies problems Wound (If applicable): N/A Pain:Denies Sleep:Denies problems FUNCTIONAL STATUS: ADL'S: Needs Assistance With:N/A as pt is independent IADL'S: Needs Assistance With:N/A as pt is independent Cognitive and Mental Health: denies problems, alert and oriented x 3, and able to communicate, understand instructions, process information. MEDICATION RECONCILIATION Medications: Reports all medications taken as prescribed. Vancomycin 125 mg OBJECTIVE ASSESSMENT Medication Risk Assessment: No risks identified Did patient fail outpatient treatment? No Discharge instructions available for review? Yes PLAN Symptom Monitoring Interventions:Member/caregiver education - signs and symptoms to contact PrimaryCare (DO NOT DELETE-Three woodall symptoms patient is to report to PCP) 1. Increased BM 2. fever 3. Chest pain/sob [employer] ObserverPublications Distribution Clerk of Care interventions/Action Plan: 5 - 7 day follow-up with PCP in place - Date: 05/21/23 Educated on role of ALEJANDRA completed with patient/caregiver. Educated patient/caregiver on patient right to have input on ALEJANDRA plan of care. Verification of Home Health/DME if indicated: NO Identified Care Gaps: Yes Care Gaps closed this call: Transition of Care follow-up communication Re-evaluation of Plan of Care and progress towards goals achievement: Patient education this visit: Verbal, counseled patient to stay hydrated, he did switch to wet wipes for the rectal irritation. Iwill message PCP for advice prior to HD appointment 05/21/23 Plan to follow-up as previously scheduled, instructed to call Primary Care Provider with change in symptoms or as needed before next follow-up, verbalizes understanding and agrees with plan. Patient is to follow up with GI for a colonoscopy in 6-8 wksto evaluate for inflammatory bowel disease. Kavita Kunz RN documented in this encounter Plan of Treatment Upcoming Encounters Date Type Department Care Team (Late st Contact Info) Description 05/21/2023 3:20 PM EST Office Visit [facility] [address] [place] [address] Tavon South MD [address] [place] [address] 05/29/2023 3:00 PM EST Office Visit Psychiatry, [facility] [address] [place] [address] Rick Austin CRNP [address] [place] [address] Health Maintenance Due Date Last Done Comments Hepatitis B (1 of 3 - 3-dose series) 1992 HIV Screening 02/10/2007 Hepatitis C Screening 02/10/2010 Depression, Most Recent Scor e >= 10 (will fire each visit until score < 10) 05/05/2022 05/04/2022 COVID-19 Vaccine (3 - 2022-2 4 season) 2022 02/25/2021, 06/26/2020 Influenza Vaccine (FLU shot) (#1) 2022 05/04/2022 DTaP,Tdap,and Td Vaccines (2 - Td or Tdap) 08/25/2030 08/25/2020 GARDASIL-HPV IMMUNIZATION SERIES Aged Out No longer eligible b ased on patient's age to complete this topic MENINGOCOCCAL (MENACTRA/MENVEO) Aged Out No longer eligible b ased on patient's age to complete this topic Pneumococcal Vaccine: Pediatrics (0 to 5 Years) and At-Risk Patients (6 to 64 Years) Aged Out No longer eligible b ased on patient's age to complete this topic documented as of this encounter Medical Devices Not on filedocumented as of this encounter Care Teams Schedule Manager Relationship Specialty Start Date End Date Tavon South MD [address] [place] [address] PCP - General Family Medicine 07/12/20 documented as of this encounter
--- OUTSIDE RECORDS SUMMARY | 2023-07-08 17:27 | External Medical Summary | Summary of Care ---
Author Name Unknown Organization [facility] Address [address] [place] [address] Phone [phone] Care Team Providers Care Electrical Linesworker Name Role Phone Tavon South MD Primary Care Provider [phone] [phone] Encounter Details Date Type Department Care Team (Late st Contact Info) Description 05/21/2023 Telephone Family Practice [facility] [address] [place] [address] Tavon South MD [address] [place] [address] Allergies No known active allergiesdocumented as of this encounter (statuses as of 05/22/2023) Medications Medication Sig Dispensed Refills Start Date End Date Status lamoTRIgine 100 MG Oral Tablet (LaMICtal) Take 2 Tablets by mouth in the morning. 180 Tablet 1 11/28/2022 Active busPIRone HCl 30 MG Oral Tablet Take 1 Tablet by mouth in the morning and 1 Tablet before bedtime. 60 Tablet 4 01/05/2023 Active Amphetamine-Dextroam phetamine 10 MG Oral Tablet (Adderall) Take 1 Tablet by mouth daily at noon. 30 Tablet 0 04/20/2023 Active Vancomycin HCl 125 MG Oral Capsule (Vancocin) Take 1 Capsule by mouth every 6 hours. 0 05/13/2023 Active Amphetamine-Dextroam phet ER 20 MG Oral Capsule Extended Release 24 Hour (Adderall XR) Take 1 Capsule by mouth in the morning. 30 Capsule 0 05/15/2023 Active Escitalopram Oxalate 20 MG Oral Tablet (Lexapro) Take 1 Tablet by mouth in the morning. 90 Tablet 3 05/21/2023 Active documented as of this encounter (statuses as of 05/22/2023) Active Problems Problem Noted Date Diagnosed Date Depression with anxiety 05/20/2023 Overweight (BMI 25.0-29.9) 05/20/2023 Attention deficit disorder (ADD) in adult 2020 documented as of this encounter (statuses as of 05/22/2023) Resolved Problems Problem Noted Date Diagnosed Date Resolved Date OBDULIO (generalized anxiety disorder) 05/04/2022 05/20/2023 Class 2 obesity due to exces s calories without serious comorbidity with body mass index (BMI) of 35.0 to 35.9 in adult 07/13/202007/2023 Moderate episode of recurren t major depressive disorder 06/08/2020 05/20/2023 Weight gain 06/08/2020 07/11/2020 documented as of this encounter (statuses as of 05/22/2023) Immunizations Name Administration Dates Next Due Covid-19 [...] encounter Miscellaneous Notes * Telephone Encounter - Anne Watson OSA - 05/22/2023 12:41 PM EST Duplicate encounter. * Telephone Encounter - Goyo Ortiz OSA - 05/21/2023 3:53 PM EST Please call pt to schedule colonoscopy documented in this encounter Plan of Treatment Upcoming Encounters Date Type Department Care Team (Late st Contact Info) Description 05/29/2023 3:00 PM EST Office Visit Psychiatry, [facility] [address] [place] [address] Rick Austin CRNP [address] [place] [address] Health Maintenance Due Date Last Done Comments [...] filedocumented as of this encounter Care Teams Electrical Linesworker Relationship Specialty Start Date End Date Tavon South MD [address] [place] [address] PCP - General Family Medicine 07/12/20 documented as of this encounter
--- OUTSIDE RECORDS SUMMARY | 2023-07-08 17:27 | External Medical Summary | Summary of Care ---
Author Name Unknown Organization [facility] Address [address] [place] [address] Phone [phone] Care Team Providers Care Career Services Officer Name Role Phone Tavon South MD Primary Care Provider [phone] Reason for Visit * Reason Onset Date Comments Appointment 05/11/2023 Encounter Details Date Type Department Care Team (Late st Contact Info) Description 05/11/2023 Telephone Gastroenterology, [facility] [address] [facility] [place] [address] [facility]ay [facility]bar CR[facility] [address] [facility] [address] Appointment Allergies No known active allergiesdocumented as of this encounter (statuses as of 06/12/2023) Medications Medication Sig Dispensed Refills Start Date End Date Status Amphetamine-Dextr oamphetamine 10 MG Oral Tablet (Adderall) Take 1 Tablet by mouth daily at noon. 30 Tablet 0 04/20/2023 Active lamoTRIgine 100 MG Oral Tablet (LaMICtal) Take 2 Tablets by mouth in the morning. 180 Tablet 1 11/28/2022 05/29/2023 Discontinued (Refill) busPIRone HCl 30 MG Oral Tablet Take 1 Tablet by mouth in the morning and 1 Tablet before bedtime. 60 Tablet 4 01/05/2023 05/29/2023 Discontinued (Refill) Escitalopram Oxalate 20 MG Oral Tablet (Lexapro) Take 1 Tablet by mouth in the morning. 30 Tablet 5 02/15/2023 05/21/2023 Discontinued (Refill) Amphetamine-Dextr oamphet ER 20 MG Oral Capsule Extended Release 24 Hour (Adderall XR) Take 1 Capsule by mouth in the morning 30 Capsule 0 03/26/2023 05/15/2023 Discontinued (Refill) documented as of this encounter (statuses as of 06/12/2023) Active Problems Problem Noted Date Diagnosed Date Depression with anxiety 05/20/2023 Overweight (BMI 25.0-29.9) 05/20/2023 Attention deficit disorder (ADD) in adult 2020 documented as of this encounter (statuses as of 06/12/2023) Resolved Problems Problem Noted Date Diagnosed Date Resolved Date OBDULIO (generalized anxiety disorder) 05/04/2022 05/20/2023 Class 2 obesity due to exces s calories without serious comorbidity with body mass index (BMI) of 35.0 to 35.9 in adult 07/13/202007/2023 Moderate episode of recurren t major depressive disorder 06/08/2020 05/20/2023 Weight gain 06/08/2020 07/11/2020 documented as of this encounter (statuses as of 06/12/2023) Immunizations Name Administration Dates Next Due Covid-19 [...] encounter Miscellaneous Notes * Telephone Encounter - Kerry Rodriguez OSA - 06/12/2023 11:11 AM EST Letter sent MILO Nevarez 06/12/2023 11:11 AM * Telephone Encounter - Kerry Rodriguez OSA - 06/06/2023 2:19 PM EST [facility] MILO Nevarez 06/06/2023 2:19 PM * Telephone Encounter - Kerry Rodriguez OSA - 05/15/2023 1:47 PM EST [facility] Currently there is an opening on 07/12/23 with AbdulsamaMILO Schroeder 05/15/2023 1:47 PM * Telephone Encounter - Renay Dunbar CRNP - 05/11/2023 12:32 PM EST Pls call pt next week to schedule colonoscopy in 6-8 week's time to f/u colitis found during his hospitalization at [facility] MADAI Simmons documented in this encounter Plan of Treatment Upcoming Encounters Date Type Department Care Team (Late st Contact Info) Description 07/10/2023 3:00 PM EDT Office Visit Psychiatry, [facility] [address] [place] [address] Rick Austin CRNP [address] [place] [address] Scheduled Orders Name Type Priority Associated Diagnoses Orde r Schedule COLONOSCOPY, DIAGNOSTIC (RECTUM) Procedures Routine Colitis Ordered: 05/11/2023 Health Maintenance Due Date Last Done Comments HIV Screening 02/10/2007 Hepatitis C Screening 02/10/2010 Hepatitis B (1 of 3 - 19+ 3-dose series) 02/10/2011 Depression, Most Recent Scor e >= 10 [...] as of this encounter Visit Diagnoses Diagnosis Colitis- Primary Other and unspecified noninfectious gastroenteritis and colitis documented in this encounter Care Teams Career Services Officer Relationship Specialty Start Date End Date Tavon South MD [address] [facility] [place] [address] PCP - General Family Medicine 07/12/20 documented as of this encounter
--- OUTSIDE RECORDS SUMMARY | 2023-07-08 17:27 | External Medical Summary | Summary of Care ---
Author Name Unknown Organization [facility] Address [address] [place] [address] Phone [phone] Care Team Providers Care Direct Service Worker Name Role Phone Tavon South MD Primary Care Provider [phone] [phone] Reason for Visit * Reason Comments Medication Refill Encounter Details Date Type Department Care Team (Late st Contact Info) Description 05/14/2023 Refill Psychiatry, [facility] [address] [place] [address] Ana Noonan CRNP [address] [place] [address] Allergies No known active allergiesdocumented [...] noon. 30 Tablet 0 04/20/2023 Active Amphetamine-Dextr oamphet ER 20 MG Oral Capsule Extended Release 24 Hour (Adderall XR) Take 1 Capsule by mouth in the morning. 30 Capsule 0 05/15/2023 Active Amphetamine-Dextr oamphet ER 20 MG Oral [...] as of this encounter Miscellaneous Notes * Addendum Note - Tomasa Austin CRNP - 05/15/2023 1:53 PM ESTAddended by: TOMASA AUSTIN on: 05/15/2023 01:53 PM Modules accepted: Orders * Telephone Encounter - Ana Noonan CRNP - 05/14/2023 12:48 PM ESTRefused Prescriptions: Disp Refills Amphetamine-Dextroamphet ER 20 MG Oral Cap*30 Cap*0 Sig: Take 1 Capsule by mouth in the morning Refused By: ANA NOONAN Reason for Refusal: Managed by another physician * Telephone Encounter - Ruddy Garcia MD - 05/14/2023 10:29 AM EST Pending Prescriptions: Disp Refills Amphetamine-Dextroamphet ER 20 MG Oral Cap*30 Cap*0 Sig: Take 1Capsule by mouth in the morning documented in this encounter Plan of Treatment Upcoming Encounters Date Type Department Care Team (Late st Contact Info) Description 05/21/2023 3:20 PM EST Office Visit Family [facility] [address] [place] [address] Tavon South MD [address] [place] [address] 05/29/2023 3:00 PM EST Office Visit Psychiatry, [facility] [address] [place] [address] Tomasa Austin CRNP [address] [place] [address] Health Maintenance Due Date Last Done Comments [...] filedocumented as of this encounter Care Teams Direct Service Worker Relationship Specialty Start Date End Date Tavno South MD [address] [place] [address] PCP - General Family Medicine 07/12/20 documented as of this encounter
--- OUTSIDE RECORDS SUMMARY | 2023-07-08 17:27 | External Medical Summary | Summary of Care ---
Author Name Unknown Organization [facility] Address [address] [place] [address] Phone [phone] Care Team Providers Care Corporate Quality Assurance Manager Name Role Phone Tavon South MD Primary Care Provider [phone] [phone] Reason for Visit * Reason Comments Medication Refill Encounter Details Date Type Department Care Team (Late st Contact Info) Description 06/14/2023 [facility] [address] [facility] [address] [facility] [address] [facility] [address] Allergies No known active allergiesdocumented as of this encounter (statuses as of 06/14/2023) Medications Medication Sig Dispensed Refills Start Date End Date Status Amphetamine-Dextr oamphetamine 10 MG Oral Tablet (Adderall) Take 1 Tablet by mouth daily at noon. 30 Tablet 0 04/20/2023 Active Vancomycin HCl 125 MG Oral Capsule (Vancocin) Take 1 Capsule by mouth every 6 hours. 0 05/13/2023 Active Escitalopram Oxalate 20 MG Oral Tablet (Lexapro) Take 1 Tablet by mouth in the morning. 90 Tablet 3 05/21/2023 Active lamoTRIgine 100 MG Oral Tablet (LaMICtal) Take 2 Tablets by mouth in the morning. 180 Tablet 1 05/29/2023 Active busPIRone HCl 30 MG Oral Tablet Take 1 Tablet by mouth in the morning and 1 Tablet before bedtime. 60 Tablet 4 05/29/2023 Active Amphetamine-Dextr oamphet ER 20 MG Oral Capsule Extended Release 24 Hour (Adderall XR) Take 1 Capsule by mouth in the morning. 30 Capsule 0 06/14/2023 Active Amphetamine-Dextr oamphet ER 20 MG Oral Capsule Extended Release 24 Hour (Adderall XR) Take 1 Capsule by mouth in the morning. 30 Capsule 0 05/15/2023 06/14/2023 Discontinued (Refill) documented as of this encounter (statuses as of 06/14/2023) Active Problems Problem Noted Date Diagnosed Date Depression with anxiety 05/20/2023 Overweight (BMI 25.0-29.9) 05/20/2023 Attention deficit disorder (ADD) in adult 2020 documented as of this encounter (statuses as of 06/14/2023) Resolved Problems Problem Noted Date Diagnosed Date Resolved Date OBDULIO (generalized anxiety disorder) 05/04/2022 05/20/2023 Class 2 obesity due to exces s calories without serious comorbidity with body mass index (BMI) of 35.0 to 35.9 in adult 07/13/202007/2023 Moderate episode of recurren t major depressive disorder 06/08/2020 05/20/2023 Weight gain 06/08/2020 07/11/2020 documented as of this encounter (statuses as of 06/14/2023) Immunizations Name Administration Dates Next Due Covid-19 [...] encounter Miscellaneous Notes * Telephone Encounter - Tomasa Austin CRNP - 06/14/2023 4:13 PM ESTSigned Prescriptions: Disp Refills Amphetamine-Dextroamphet ER 20 MG Oral Cap*30 Cap*0 Sig: Take 1 Capsule by mouth in the morning.Authorizing Provider: TOMASA AUSTIN documented in this encounter Plan of Treatment Upcoming Encounters Date Type Department Care Team (Late st Contact Info) Description 07/10/2023 3:00 PM EDT Office Visit Psychiatry [facility] [address] [place] [address] Tomasa Austin CRNP [address] [place] [address] Health Maintenance Due Date Last Done Comments [...] filedocumented as of this encounter Care Teams Corporate Quality Assurance Manager Relationship Specialty Start Date End Date Tavon South MD [address] [place] [address] PCP - General Family Medicine 07/12/20 documented as of this encounter
--- OUTSIDE RECORDS SUMMARY | 2023-07-08 17:27 | External Medical Summary | Summary of Care ---
Author Name Unknown Organization [facility] Address [address] [place] [address] Phone [phone] Care Team Providers Care Psychiatric Secretary Name Role Phone Tavon South MD Primary Care Provider [phone] Reason for Visit * Reason Onset Date Comments Appointment 05/11/2023 Encounter Details Date Type Department Care Team (Late st Contact Info) Description 05/11/2023 Telephone Gastroenterology, [facility] 132 [facility] [place] [address] Renay Dunbar CRNP [address] [facility] [address] Appointment Allergies No known active allergiesdocumented as of this encounter (statuses as of 06/06/2023) Medications Medication Sig Dispensed Refills Start Date [...] as of this encounter (statuses as of 06/06/2023) Active Problems Problem Noted Date Diagnosed Date Depression with anxiety 05/20/2023 Overweight (BMI 25.0-29.9) 05/20/2023 Attention deficit disorder (ADD) in adult 2020 documented as of this encounter (statuses as of 06/06/2023) Resolved Problems Problem Noted Date Diagnosed Date Resolved Date OBDULIO (generalized anxiety disorder) 05/04/2022 05/20/2023 Class 2 obesity due to exces s calories without serious comorbidity with body mass index (BMI) of 35.0 to 35.9 in adult 07/13/202007/2023 Moderate episode of recurren t major depressive disorder 06/08/2020 05/20/2023 Weight gain 06/08/2020 07/11/2020 documented as of this encounter (statuses as of 06/06/2023) Immunizations Name Administration Dates Next Due Covid-19 [...] Rodriguez OSA - 06/06/2023 2:19 PM EST [facility] MILO Nevarez 06/06/2023 2:19 PM * Telephone Encounter - Kerry Rodriguez OSA - 05/15/2023 1:47 PM EST [facility] Currently there is an opening on 07/12/23 with SteveamaMILO Schroeder 05/15/2023 1:47 PM * Telephone Encounter - Renay Dunbar CRNP - 05/11/2023 12:32 PM EST Pls call pt next week to schedule colonoscopy in 6-8 week's time to f/u colitis found during his hospitalization at [facility] MADAI Simmons documented in this encounter Plan of Treatment Upcoming Encounters Date Type Department Care Team (Late st Contact Info) Description 07/10/2023 3:00 PM EDT Office Visit [facility] [address] [place] [address] Rick Austin CRNP [address] [place] [address] Scheduled Orders Name Type Priority Associated Diagnoses [...] colitis documented in this encounter Care Teams Psychiatric Secretary Relationship Specialty Start Date End Date Tavon South MD [address] [place] [address] PCP - General Family Medicine 07/12/20 documented as of this encounter
--- OUTSIDE RECORDS SUMMARY | 2023-07-08 17:27 | External Medical Summary | Summary of Care ---
Author Name Unknown Organization [facility] Address [address] [place] [address] Phone [phone] Care Team Providers Care Integrated Circuit Ic Layout Designer Name Role Phone Tavon South MD Primary Care Provider [phone] [phone] Reason for Referral * Ancillary Services (Within 30 days (routine)) - Pending Review Specialty Diagnoses / Procedures Referred By Abigail cunningham Referred To Contact Gastroenterology Diagnoses C. difficile colitis Tavon South MD [address] [place] [address] Referral ID Status Reason Start Date Expiration Date Visits Requested Visits Authorized [id number] Pending Review Ancillary Services Required 05/21/[phone] Question Answer Referral Priority Within 30 days (routine) Where should this appointment be scheduled? [facility] Comments ALERT: Do not order for pediatric patients (18 years or younger). Cancel off screen and order PEDS GASTROENTEROLOGY CONSULT (Type: 1 visit only-Evaluate and Treat) The following Pt. Instructions are available: - Gastro Colonoscopy Prep Instructions [[id number]] - Gastro Colonoscopy Prep Instructions (Setswana Version) [01431] Go to the Pt. Instructions section within the Visit Navigator to access. Colonoscopy ASGE Guidelines: Altered bowel habit, chronic diarrhea ADDITIONAL INFORMATION 1. Is the patient on Coumadin? No 2. Is the patient on Pradaxa? No Reason for Visit * Reason Onset Date Comments Hospital Follow-Up Pt here for h ospital follow up Hospital Follow-Up 05/21/2023 Encounter Details Date Type Department Care Team (Late st Contact Info) Description 05/21/2023 3:20 PM EST Office Visit Family [facility] [address] [place] [address] Tavon South MD [address] [place] [address] Hospital discharge follow-up*; Overweight (BMI 25.0-29.9); Depression with anxiety; Attention deficit disorder (ADD) in adult; C. difficile colitis Allergies No known active allergiesdocumented as of this encounter (statuses as of 05/21/2023) Medications Medication Sig Dispensed Refills Start Date End Date Status lamoTRIgine 100 MG Oral Tablet (LaMICtal) Take 2 Tablets by mouth in the morning. 180 Tablet 1 11/28/2022 Active busPIRone HCl 30 MG Oral Tablet Take 1 Tablet by mouth in the morning and 1 Tablet before bedtime. 60 Tablet 4 01/05/2023 Active Amphetamine-Dextr oamphetamine 10 MG Oral Tablet [...] the morning. 90 Tablet 3 05/21/2023 Active Escitalopram Oxalate 20 MG Oral Tablet (Lexapro) Take 1 Tablet by mouth in the morning. 30 Tablet 5 02/15/2023 05/21/2023 Discontinued (Refill) documented as of this encounter (statuses as of 05/21/2023) Active Problems Problem Noted Date Diagnosed Date Depression with anxiety 05/20/2023 Overweight (BMI 25.0-29.9) 05/20/2023 Attention deficit disorder (ADD) in adult 2020 documented as of this encounter (statuses as of 05/21/2023) Resolved Problems Problem Noted Date Diagnosed Date Resolved Date OBDULIO (generalized anxiety disorder) 05/04/2022 05/20/2023 Class 2 obesity due to exces s calories without serious comorbidity with body mass index (BMI) of 35.0 to 35.9 in adult 07/13/202007/2023 Moderate episode of recurren t major depressive disorder 06/08/2020 05/20/2023 Weight gain 06/08/2020 07/11/2020 documented as of this encounter (statuses as of 05/21/2023) Immunizations Name Administration Dates Next Due Covid-19 [...] on file documented as of this encounter Last Filed Vital Signs Vital Sign Reading Time Taken Comments Blood Pressure 118/78 05/21/2023 3:34 PM EST Pulse 76 05/21/2023 3:34 PM EST Temperature 36.8 C (98.2 F) 05/21/2023 3:34 PM ES T Respiratory Rate 18 05/21/2023 3:34 PM EST Oxygen Saturation - - Inhaled Oxygen Concentration - - Weight 75.8 kg (167 lb) 05/21/2023 3:34 PM EST Height 177.8 cm (5' 10") 05/21/2023 3:34 PM EST Body Mass Index 23.96 05/21/2023 3:34 PM EST documented in this encounter Progress Notes * Tavon South MD - 05/21/2023 5:05 PM EST SUBJECTIVE: Raphael Christie is a 33 year old male. Chief Complaint Patient presents with Hospital Follow-Up Pt here for hospital follow up Hospital Follow-Up HPI: Hospital d/c follow up for equivocal c. Diff colitis. Symptoms have resolved. Finishing vanco. Needs scope in 6-8 weeks. Sees psychiatry for med management. Patient Active Problem List Diagnosis Code Attention deficit disorder (ADD) in adult F98.8 Depression with anxiety F41.8 Overweight (BMI 25.0-29.9) E66.3 Current Outpatient Medications Medication Sig Dispense Refill lamoTRIgine 100 MG Oral Tablet (LaMICtal) Take 2 Tablets by mouth in the morning. 180 Tablet 1 busPIRone HCl 30 MG Oral Tablet Take 1 Tablet by mouth in the morning and 1 Tablet before bedtime. 60 Tablet 4 Amphetamine-Dextroamphetamine 10 MG Oral Tablet (Adderall) Take 1 Tablet by mouth daily at noon. 30Tablet 0 Vancomycin HCl 125 MG Oral Capsule (Vancocin) Take 1 Capsule by mouth every 6 hours. Amphetamine-Dextroamphet ER 20 MG Oral Capsule Extended Release 24 Hour (Adderall XR) Take 1 Capsule by mouth in the morning. 30 Capsule 0 Escitalopram Oxalate 20 MG Oral Tablet (Lexapro) Take 1 Tablet by mouth in the morning. 90 Tablet 3 No current facility-administered medications for this visit. Allergy: Review of patient's allergies indicates: No Known Allergies OBJECTIVE: BP 118/78 | Pulse 76 | Temp 36.8 C (98.2 F) (Tympanic) | Resp 18 | Ht 1.778 m (5' 10") | Wt 75.8 kg (167 lb) | BMI 23.96 kg/m | BSA 1.93 m Gen: aao x 3, nad Lungs: ctab Heart: rrr, no mrg Ext: no c/c/e Abdomen: soft, nt/nd ASSESSMENT AND PLAN: (Z09) Hospital discharge follow-up (primary encounter diagnosis) Plan: DISCH MED RECON CUR MED LIS (E66.3) Overweight (BMI 25.0-29.9) Plan: diet/exercise (F41.8) Depression with anxiety Plan: mgmt per psych (F98.8) Attention deficit disorder (ADD) in adult Plan: see above (A04.72) C. difficile colitis Plan: COLONOSCOPY, GI REFERRAL OP -resolved Follow up as needed. No other complaints were offered at this time. Tavon South MD documented in this encounter Nursing Notes * Nimo Matos LPN - 05/21/2023 3:33 PM EST The patient has been properly identified by confirmation of name and date of . Chief Complaint Patient presents with Hospital Follow-Up Pt here for hospital follow up documented in this encounter Plan of Treatment Upcoming Encounters Date Type Department Care Team (Late st Contact Info) Description 05/29/2023 3:00 PM EST [facility] [address] [place] [address] Rick Austin CRNP [address] [place] [address] Scheduled Referrals Name Type Priority Associated Diagnoses Orde r Schedule COLONOSCOPY, GI REFERRAL OP Referral Within 30 days (routine) C. difficile colitis Ordered: 05/21/2023 Health Maintenance Due Date Last Done Comments [...] as of this encounter Visit Diagnoses Diagnosis Hospital discharge follow-up- Primary Other follow-up examination Overweight (BMI 25.0-29.9) Overweight Depression with anxiety Dysthymic disorder Attention deficit disorder (ADD) in adult C. difficile colitis Intestinal infection due to clostridium difficile documented in this encounter Care Teams Integrated Circuit Ic Layout Designer Relationship Specialty Start Date End Date Tavon South MD [address] [place] [address] PCP - General Family Medicine 07/12/20 documented as of this encounter
--- OUTSIDE RECORDS SUMMARY | 2023-07-08 17:27 | External Medical Summary | Summary of Care ---
Author Name Unknown Organization [facility] Address [address] [place] [address] Phone [phone] Care Team Providers Care Turbine Measurements Engineer Name Role Phone Tavon South MD Primary Care Provider [phone] Reason for Visit * Reason Comments Anxiety Encounter Details Date Type Department Care Team (Late st Contact Info) Description 05/29/2023 3:00 PM EST [facility] [address] [facility] [place] [address] Rick Austin CRNP [address] [facility] [address] History of ADHD*; OBDULIO (generalized anxiety disorder) Allergies No known active allergiesdocumented as of this encounter (statuses as of 05/29/2023) Medications Medication Sig Dispensed Refills Start Date [...] before bedtime. 60 Tablet 4 05/29/2023 Active lamoTRIgine 100 MG Oral Tablet (LaMICtal) Take 2 Tablets by mouth in the morning. 180 Tablet 1 11/28/2022 05/29/2023 Discontinued (Refill) busPIRone HCl 30 MG Oral Tablet Take 1 Tablet by mouth in the morning and 1 Tablet before bedtime. 60 Tablet 4 01/05/2023 05/29/2023 Discontinued (Refill) documented as of this encounter (statuses as of 05/29/2023) Active Problems Problem Noted Date Diagnosed Date Depression with anxiety 05/20/2023 Overweight (BMI 25.0-29.9) 05/20/2023 Attention deficit disorder (ADD) in adult 2020 documented as of this encounter (statuses as of 05/29/2023) Resolved Problems Problem Noted Date Diagnosed Date Resolved Date OBDULIO (generalized anxiety disorder) 05/04/2022 05/20/2023 Class 2 obesity due to exces s calories without serious comorbidity with body mass index (BMI) of 35.0 to 35.9 in adult 07/13/202007/2023 Moderate episode of recurren t major depressive disorder 06/08/2020 05/20/2023 Weight gain 06/08/2020 07/11/2020 documented as of this encounter (statuses as of 05/29/2023) Immunizations Name Administration Dates Next Due Covid-19 [...] as of this encounter Progress Notes * Rick Austin CRNP - 05/29/2023 3:07 PM EST Patient Location: HOME. After connecting through [employer], patient was verified with two unique identifiers. Patient (or authorized legal warehouse representative) was then informed that this was a Telemedicine visit and being conducted confidentially over secure lines. Methods to assure confidentiality were taken. Patient acknowledged consent and understanding of privacy and security of the Telemedicine visit. The patient agreed to participate. PSYCHOTHERAPY & MEDICATION MANAGEMENT RETURN VISIT NOTE Psychiatry, [facility] [address] [facility] [place] [address] 05/29/2023 Raphael Christie CHIEF COMPLAINT: Anxiety INTERVAL HISTORY: Raphael Christie is a 33 year old male presenting today for a follow-up appointment. Pt reports "some bad times, pretty low" since last appt. Holidays were hard, however "the past 2 weeks, I've felt better than in a year." Feels he is past a lot of previous situational stressors, improved routine, through therapy "I feel like I've had some 'a-sharpe' moments.. personally I feel good." Does attribute some of his improvement to current dosing of Lexapro. "I'm back to eating normal.. feeling.. normal. More sustained happiness. Less despair, less anger, less changing on a dime with thetiniest little thing. Just much better consistent with responding to triggers." Feels his attitude towards relationships and friendships have improved. "Way less co-dependent, feeling in control of my own happiness." Doing a lot of reading and journaling. MEDICATION SIDE EFFECTS: some brain fog / lethargy with current regimen OBJECTIVE DATA: COLUMBIA-SUICIDE SEVERITY RATING SCALE: - [...] do anything to end your life? denies Low Risk: Reviewed a crisis plan with patient including calling the suicide hotline, calling their local crisis number, using the crisis text line, or calling the department of psychiatry phone number. Discussed risks/protective factors and reasons for living. ROS EXAM: Negative except as described above [...] Speech: normal, rate, tone and volume Mood: positive Affect: type - euthymic; range - full [...] Denies history of inpatient treatment. 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 ASSESSMENT - DIAGNOSIS: - ADHD by history - Unspecified Anxiety Disorder - Differential includes Cyclothymia, Bipolar 2 Disorder, MDD PLAN: - Continue Lexapro 20mg, Lamictal 200mg daily, Adderall XR 20mg daily / Adderall IR 10mg dose in the afternoon, Buspar 30mg BID - We will work on reducing the [...] Program in compliance with the [facility] regulations before prescribing a controlled substance. Crisis [...] then worsen anxiety and depression. Return in 6 weeks or sooner as needed. Time Spent on Visit total: 22 minutes - including preparing to see the patient, reviewing history, performing evaluation, counseling/educating patient, ordering medications/tests, documenting clinical information. 16 minutes was spent on counseling including active listening, supportive therapy, self-care, and reflection Rick Austin MSN, MADAI, PMHNP- Nurse Practitioner - Outpatient [facility] 05/29/2023 documented in this encounter Plan of Treatment Upcoming Encounters Date Type Department Care Team (Late st Contact Info) Description 07/10/2023 3:00 PM EDT Office Visit [facility] O[facility]co [address] [place] [address] Rick Austin CRNP [address] [place] [address] Health Maintenance Due Date Last Done Comments [...] as of this encounter Visit Diagnoses Diagnosis History of ADHD- Primary Personal history of other mental disorder OBDULIO (generalized anxiety disorder) Generalized anxiety disorder documented in this encounter Care Teams Turbine Measurements Engineer Relationship Specialty Start Date End Date Tavon South MD [address] [place] [address] PCP - General Family Medicine 07/12/20 documented as of this encounter
--- OUTSIDE RECORDS SUMMARY | 2023-07-08 17:28 | External Medical Summary | Summary of Care ---
Author Name Unknown Organization [facility] Address [address] [place] [address] Phone [phone] Care Team Providers Care Master Brewer Name Role Phone Tavon South MD Primary Care Provider [phone] Reason for Visit * Reason Onset Date Comments Appointment 05/11/2023 Encounter Details Date Type Department Care Team (Late st Contact Info) Description 05/11/2023 Telephone Gastroenterology, [facility] [address] [facility] [place] [address] Renay Dunbar CRNP [address] [facility] [place] [address] Appointment Allergies No known active allergiesdocumented as [...] morning. 30 Tablet 5 02/15/2023 Active Amphetamine-Dextroam phet ER 20 MG Oral Capsule Extended Release 24 Hour (Adderall XR) Take 1 Capsule by mouth in the morning 30 Capsule 0 03/26/2023 Active Amphetamine-Dextroam phetamine 10 MG Oral Tablet (Adderall) Take 1 Tablet by mouth daily at noon. 30 Tablet 0 04/20/2023 Active documented as of this encounter (statuses [...] Miscellaneous Notes * Telephone Encounter - Kerry Rodriguez, MILO - 05/15/2023 1:47 PM EST [facility] Currently there is an opening on 07/12/23 with MILO Rivera 05/15/2023 1:47 PM * Telephone Encounter - Renay Dunbar CRNP - 05/11/2023 12:32 PM EST Pls call pt next week to schedule colonoscopy in 6-8 week's time to f/u colitis found during his hospitalization at [facility] MADAI Simmons documented in this encounter Plan of Treatment Upcoming Encounters Date Type Department Care Team (Late st Contact Info) Description 05/21/2023 3:20 PM EST Office Visit Family Practice [facility] [address] [place] [address] Tavon South MD [address] [place] [address] 05/29/2023 3:00 PM EST Office Visit Psychiatry, [facility] [address] [place] [address] Rick Austin CRNP [address] [place] [address] Scheduled Orders Name Type Priority Associated Diagnoses [...] colitis documented in this encounter Care Teams Master Brewer Relationship Specialty Start Date End Date Tavon South MD [address] [place] [address] PCP - General Family Medicine 07/12/20 documented as of this encounter
--- OUTSIDE RECORDS SUMMARY | 2023-07-08 17:28 | External Medical Summary | Summary of Care ---
Author Name Unknown Organization [facility] Address [address] [place] [address] Phone [phone] Care Team Providers Care Bordereau Clerk Name Role Phone Tavon South MD Primary Care Provider [phone] [phone] Reason for Visit * Reason Onset Date Comments Appointment 05/11/2023 Encounter Details Date Type Department Care Team (Late st Contact Info) Description 05/11/2023 Telephone Gastroenterology, [facility] [address] [facility] [place] [address] Renay Dunbar CRNP [address] [facility] [place] [address] Appointment Allergies No known active allergiesdocumented as [...] Rodriguez, MILO - 05/15/2023 1:47 PM EST [facility] MILO Nevarez 05/15/2023 1:47 PM * Telephone Encounter - Renay Dunbar CRNP - 05/11/2023 12:32 PM EST Pls call pt next week to schedule colonoscopy in 6-8 week's time to f/u colitis found during his hospitalization at [facility] MADAI Simmons documented in this encounter Plan of Treatment Upcoming Encounters Date Type Department Care Team (Late st Contact Info) Description 05/21/2023 3:20 PM EST Office Visit Family Practice [facility] [address] [place] [address] Tavon South MD [address] [place] [address] 05/29/2023 3:00 PM EST Office Visit Psychiatry, [facility] [address] [place] [address] Rick Austin CRNP [address] [place] [address] Scheduled Orders Name Type Priority Associated Diagnoses [...] colitis documented in this encounter Care Teams Bordereau Clerk Relationship Specialty Start Date End Date Tavon South MD [address] [place] [address] PCP - General Family Medicine 07/12/20 documented as of this encounter
--- OUTSIDE RECORDS SUMMARY | 2023-07-08 17:28 | External Medical Summary | Summary of Care ---
Author Name Unknown Organization [facility] Address [address] [place] [address] Phone [phone] Care Team Providers Care Slate Splitter Name Role Phone Tavon South MD Primary Care Provider [phone] [phone] Reason for Visit * Reason Onset Date Comments Appointment 05/11/2023 Encounter Details Date Type Department Care Team (Late st Contact Info) Description 05/11/2023 Telephone Gastroenterology, [facility] [address] [facility] [place] [address] Renay Dunbar CRNP [address] [facility] [place] [address] Appointment Allergies No known active allergiesdocumented as of this encounter (statuses as of 05/11/2023) Medications Medication Sig Dispensed Refills Start Date [...] as of this encounter (statuses as of 05/11/2023) Active Problems Problem Noted Date Diagnosed Date OBDULIO (generalized anxiety disorder) 05/04/2022 Attention deficit disorder (ADD) in adult 2020 Class 2 obesity due to exces s calories without serious comorbidity with body mass index (BMI) of 35.0 to 35.9 in adult 07/13/2020 Moderate episode of recurrent major depressive d isorder 06/08/2020 documented as of this encounter (statuses as of 05/11/2023) Resolved Problems Problem Noted Date Diagnosed Date Resolved Date Weight gain 06/08/2020 07/11/2020 documented as of this encounter (statuses as of 05/11/2023) Immunizations Name Administration Dates Next Due Covid-19 [...] encounter Miscellaneous Notes * Telephone Encounter - Renay Dunbar CRNP - 05/11/2023 12:32 PM EST Pls call pt next week to schedule colonoscopy in 6-8 week's time to f/u colitis found during his hospitalization at [facility] MADAI Simmons documented in this encounter Plan of Treatment Upcoming Encounters Date Type Department Care Team (Late st Contact Info) Description 05/29/2023 3:00 PM EST Office Visit Psychiatry, [facility] [address] [place] [address] Rick Austin CRNP [address] [place] [address] Scheduled Orders Name Type Priority Associated Diagnoses [...] colitis documented in this encounter Care Teams Slate Splitter Relationship Specialty Start Date End Date Tavon South MD [address] [place] [address] PCP - General Family Medicine 07/12/20 documented as of this encounter
--- OUTSIDE RECORDS SUMMARY | 2023-07-08 17:28 | External Medical Summary | Summary of Care ---
Author Name Unknown Organization [facility] Address [address] [place] [address] Phone [phone] Care Team Providers Care Carpenter Bridge Name Role Phone Tavon South MD Primary Care Provider [phone] [phone] Reason for Visit * Reason Comments Medication Refill Encounter Details Date Type Department Care Team (Late st Contact Info) Description 05/14/2023 Refill Psychiatry, [facility] [address] [place] [address] Ana Noonan CRNP [address] [place] [address] Allergies No known active allergiesdocumented as of this encounter (statuses as of 05/14/2023) Medications Medication Sig Dispensed Refills Start Date [...] as of this encounter (statuses as of 05/14/2023) Active Problems Problem Noted Date Diagnosed Date OBDULIO (generalized anxiety disorder) 05/04/2022 Attention deficit disorder (ADD) in adult 2020 Class 2 obesity due to exces s calories without serious comorbidity with body mass index (BMI) of 35.0 to 35.9 in adult 07/13/2020 Moderate episode of recurrent major depressive d isorder 06/08/2020 documented as of this encounter (statuses as of 05/14/2023) Resolved Problems Problem Noted Date Diagnosed Date Resolved Date Weight gain 06/08/2020 07/11/2020 documented as of this encounter (statuses as of 05/14/2023) Immunizations Name Administration Dates Next Due Covid-19 [...] encounter Miscellaneous Notes * Telephone Encounter - Ana Noonan CRNP [...] 1 Capsule by mouth in the morning documented in this encounter Plan of Treatment Upcoming Encounters Date Type Department Care Team (Late st Contact Info) Description 05/29/2023 3:00 PM EST [facility] [address] [place] [address] Rick Austin CRNP [address] [place] [address] Health Maintenance Due Date Last Done Comments [...] filedocumented as of this encounter Care Teams Carpenter Bridge Relationship Specialty Start Date End Date Tavon South MD [address] [place] [address] PCP - General Family Medicine 07/12/20 documented as of this encounter
--- NOTE | 2023-07-08 17:35 | Emergency Department Note ---
Impression & Plan Abdominal pain, Diarrhea, Colitis ED Provider Note CHIEF COMPLAINT: Abdominal pain, bloody stool, diarrhea HISTORY OF PRESENTING ILLNESS: This 33-year-old male patient presents to the emergency department for evaluation of diarrhea, abdominal pain, and blood in his stool. The patient states that he started with C. difficile symptoms again last night. The abdominal pain is mostly central and to the left. Has chills and sweating, but has not checked his temp. He rates his discomfort as 8/10. He is having up to 6 watery stools a day since last night. Bright red blood in the toilet bowl and when he wiped yesterday, but no blood in his stool today. Denies chest pain or SOB. Took Tylenol at noon without improvement of the symptoms. He fully resolved after his last episode of C. diff/colitis from his admission in Apr/May 2023. The patient was admitted in April 2023 for C. difficile gene positive, but toxin negative bloody diarrhea. CT scan of the abdomen pelvis at that time showed wall thickening of the ascending and transverse colon concerning for mild colitis. The patient was initially started on Cipro and Flagyl at the time of admission due to his leukocytosis. Once he was able to obtain stool studies, the patient was started on oral vancomycin for possible C. difficile colitis due to his concerning symptoms. The patient was advised to get an outpatient colonoscopy after discharge. The plan was for repeat colonoscopy 6 to 8 weeks after resolution of symptoms. He has not had his colonoscopy scheduled yet. Family history of "bowel problems," but the patient does not have any known history of IBD. REVIEW OF SYSTEMS: See HPI for pertinent positives and pertinent negatives. ALLERGIES: NKDA MEDICATIONS: Buspirone, Adderall XR, Adderall, Escitalopram, Lamotrigine PAST MEDICAL HISTORY: ADHD, Anxiety, Depression, denies any abdominal surgeries PHYSICAL EXAM: VITALS: Vitals are noted on the nurse's note and reviewed by myself. GENERAL: The patient appears in pain, nauseous, and ill appearing, but non toxic, and in no acute distress. SKIN: Capillary refill <2 sec. EYES: PERRLA. EOMI. Conjunctivae without injection, sclerae without icterus. NOSE: Patent without discharge. MOUTH: Mucous membranes moist. Uvula midline. Airway patent. NECK: Supple without nuchal rigidity. HEART: Regular rate and rhythm without murmurs gallops or rubs. LUNGS: Clear to auscultation bilaterally without wheezes, rales or rhonchi. No retractions or accessory muscle use. ABDOMEN: Positive bowel sounds x 4. Normal tympanic percussion. Soft, diffusely tender to palpation. No masses or organomegaly. Doran sign negative. Guarding and rebound tenderness, but no rigidity. RECTAL: Deferred due to the patient's condition and abdominal discomfort. MUSCULOSKELETAL: No gross musculoskeletal defects. NEURO: Patient was alert and oriented. No focal neurological deficits. DIFFERENTIAL DIAGNOSIS: Differential diagnosis includes C. difficile, viral gastroenteritis, bacterial diarrheal illness, colitis, hepatitis, pancreatitis, cholecystitis, cholelithiasis, appendicitis, kidney stone, pyelonephritis, UTI, gastritis, gastroenteritis, mesenteric adenitis, obstruction, constipation, hernia, abdominal abscess, perforation, diverticulitis, IBD, ischemic colitis, abdominal aortic aneurysm, testicular torsion, prostatitis, or others. ED COURSE AND MEDICAL DECISION MAKING: MONITOR: Continuous manager cardiac cath: Order was placed for continuous manager cardiac cath. Patient was placed on the manager cardiac cath and continuous pulse ox. Patient was noted to be in normal sinus rhythm at an initial rate of 70 bpm per my interpretation. EKG: EKG was interpreted by myself as sinus bradycardia at 57 bpm with no acute ST or T wave changes and no significant change from his previous EKG. MEDICATIONS GIVEN: A total of 2 L normal saline solution bolus. Tylenol 1000 mg IV. Morphine 4 mg IV x 2 and Zofran 4 mg IV x 2. INTERPRETATION OF LABS: I interpreted the labs with full lab results as below in the lab section of this note. White blood cell count slightly elevated 11.69. Hemoglobin normal at 16.4. Platelet count normal at 309. Anion gap elevated at 13, glucose 123, and total bilirubin 1.3. CMP otherwise normal. Lipase normal. ESR and CRP were normal. Initial lactate elevated 2.4 with improvement to 1.3 after the IV fluids. COVID, influenza, and RSV were negative. Urinalysis with 4+ ketones, but no evidence for UTI. The patient was unable to give a stool sample while in the emergency department. Blood cultures are still pending. INTERPRETATION OF IMAGING: Imaging studies were interpreted by myself and read by radiology as per the imaging section of this note. Chest x-ray negative for acute cardiopulmonary etiology. CT scan of the abdomen pelvis with IV contrast showed mild thickening of the transverse and descending colon which may represent infectious/inflammatory process versus underdistention. Trace pelvic free fluid may be reactive. CTA of the chest with IV contrast showed no evidence for PE or other acute abnormalities. EXTERNAL RECORDS REVIEWED: The patient's previous admission for similar symptoms in April 2023 was reviewed and summarized as above. CONSULTATIONS: On-call hospitalist [facility] SUMMARY: I examined the patient. The patient presented to the emergency department with diarrhea, abdominal pain, and blood in his stool since last night. The patient was admitted in April 2023 with C. difficile gene positive, but toxin negative bloody diarrhea. CT scan of the abdomen pelvis at that time showed concerns for mild colitis. The patient was treated with oral vancomycin with resolution of his symptoms until the symptoms returned again last evening. At the time of my initial examination, the patient appeared in pain, nauseous, and was ill-appearing, but nontoxic. An IV lock was placed and labs were drawn. The patient was given a total of 2 L of normal saline solution bolus. The patient's lactate was initially elevated 2.4 with improvement to 1.3 after the IV fluids. The patient had 4+ ketones in his urine. The patient was not tachycardic or hypotensive and I do not suspect sepsis at this time. I suspect the patient's elevated lactate level was secondary to dehydration. Antibiotics were held at this time due to the concern for possible C. difficile. The patient was medicated with pain medication and antinausea medication as above, but continued to be symptomatic. White blood cell count was slightly elevated 11.69, but ESR and CRP were normal. No evidence for UTI. CMP results as above. Blood cultures are pending. CT scan of the abdomen pelvis with IV contrast showed concerns for an infectious/inflammatory process. The patient was unable to give a stool sample while in the emergency department. Rectal exam was deferred at this time due to the patient's discomfort. On repeat examination after the pain medications the patient continued with mainly significant left upper quadrant abdominal pain. Therefore, there was concern that an etiology other than colitis might be present. EKG and high- sensitivity troponin were normal. CTA of the chest did not show evidence for PE, pneumonia, or other acute abnormalities. I had a meaningful discussion about this patient with Dr. Chatterjee who agrees with my assessment and the treatment plan. Due to the patient's continued symptoms with a history of questionable C. difficile colitis, it was felt the patient would benefit from admission for further evaluation and treatment. I spoke to the on-call hospitalist who agreed to admit the patient for further management. Please refer to their dictation for further details. The patient's care was transferred in stable condition. DIAGNOSIS: Abdominal pain - worse in the left upper quadrant Diarrhea Colitis Past Med/Surg History Medical History Anxiety and depression Testicular torsion Surgical History No significant past surgical history Social History Smoking Status: Never smoker Second Hand Exposure: No; Do You Dip or Chew Tobacco: No; Hx Alcohol Use: No Hx Substance Use: Yes Last Used Substance: Unknown Last Used Substance Other:: 2 days ago Substance Use Type Other:: Medical marijuana card barros Preferred Language: Vietnamese Communication Ability: Effective Divinity Professor Required: No Beliefs That Will Affect Care: None Current Living Situation: Alone Current Living Situation Comment: Lives at home (single bedroom apartment) alone Other Information That Helps Us Care for You: No Feels Safe at Home: Yes Safety Concerns: Feels Safe At This Time Assistive Devices: None Allergies Allergies Allergy/AdvReac Type Severity Reaction Status Date / Time No Known Allergies Allergy Unverified 05/10/23 23:02 Home Meds Home Medications Medication Instructions Recorded Confirmed buspirone 30 mg tablet 30 mg PO BID 05/10/23 07/08/23 dextroamphetamine-amphetamine 10 10 mg PO .DAILY AT NOON 05/10/23 07/08/23 mg tablet dextroamphetamine-amphetamine ER 20 mg PO QAM 05/10/23 07/08/23 20 mg 24hr capsule,extend release escitalopram oxalate 20 mg tablet 20 mg PO DAILY 05/10/23 07/08/23 lamotrigine 100 mg tablet 200 mg PO QAM 05/10/23 07/08/23 Results & Data (ED) Vital Signs Vital Signs - 24 hr 07/08/23 17:25 07/08/23 18:31 07/08/23 18:36 Temperature 36.4 C L Temperature Source Oral Pulse Rate 64 57 L 59 L Pulse Rate from SpO2 Sensor 64 Pulse Rhythm Regular Pulse Strength Normal Respiratory Rate 18 Respiratory Effort / Characteristics Non-Labored Respiratory Depth Normal Respiratory Pattern Regular Blood Pressure 148/100 H 163/91 H Blood Pressure Mean 116 115 Blood Pressure Position Sitting Pulse Oximetry 98 100 Oxygen Delivery Method Room Air Sepsis Recent Fever Within 48 Hours No Sepsis New/Unexplained Change in Mental Status No Sepsis Action Taken by Nursing No Action Required 07/08/23 20:00 07/08/23 20:01 07/08/23 20:30 Temperature Temperature Source Pulse Rate 46 L 57 L 77 Pulse Rate from SpO2 Sensor 51 L 55 L Pulse Rhythm Pulse Strength Respiratory Rate 12 21 21 Respiratory Effort / Characteristics Respiratory Depth Respiratory Pattern Blood Pressure 119/85 150/93 H Blood Pressure Mean 96 112 Blood Pressure Position Pulse Oximetry 99 96 100 Oxygen Delivery Method Room Air Room Air Sepsis Recent Fever Within 48 Hours Sepsis New/Unexplained Change in Mental Status Sepsis Action Taken by Nursing 07/08/23 21:00 07/08/23 21:40 07/08/23 22:42 Temperature Temperature Source Pulse Rate 59 L 61 52 L Pulse Rate from SpO2 Sensor 60 Pulse Rhythm Pulse Strength Respiratory Rate 18 15 Respiratory Effort / Characteristics Respiratory Depth Respiratory Pattern Blood Pressure 159/104 H 131/78 Blood Pressure Mean 122 95 Blood Pressure Position Pulse Oximetry 98 98 Oxygen Delivery Method Room Air Room Air Sepsis Recent Fever Within 48 Hours Sepsis New/Unexplained Change in Mental Status Sepsis Action Taken by Nursing 07/08/23 23:00 07/09/23 01:03 Temperature Temperature Source Pulse Rate 65 66 Pulse Rate from SpO2 Sensor Pulse Rhythm Pulse Strength Respiratory Rate 18 16 Respiratory Effort / Characteristics Respiratory Depth Respiratory Pattern Blood Pressure 119/77 113/70 Blood Pressure Mean 91 84 Blood Pressure Position Pulse Oximetry 98 97 Oxygen Delivery Method Room Air Room Air Sepsis Recent Fever Within 48 Hours Sepsis New/Unexplained Change in Mental Status Sepsis Action Taken by Nursing Laboratory Data 07/09/23 00:04 07/08/23 18:11 Lab Results 07/08/23 07/08/23 07/08/23 Range/Units 18:00 18:11 18:56 WBC 11.69 H (4.8-10.8) K/ul RBC 5.50 (4.70-6.10) M/uL Hgb 16.4 (14.0-18.0) g/dl Hct 44.8 (42.0-52.0) % MCV 81.5 (80.0-100.0) fL MCH 29.8 (25.0-34.0) pg MCHC 36.6 H (32.0-36.0) g/dL RDW Std Deviation 35.2 L (36.4-46.3) fL RDW Coeff of Moiz 11.9 (11.5-14.5) % Plt Count 309 (130-400) K/uL MPV 9.8 (9.4-12.4) fL Immature Gran % (Auto) 0.3 % Neut % (Auto) 91.6 % Lymph % (Auto) 5.5 % Dewey % (Auto) 2.3 % Eos % (Auto) 0.0 % Baso % (Auto) 0.3 % Neut # (Auto) 10.71 H (1.40-6.50) K/uL Lymph # (Auto) 0.64 L (1.20-3.40) K/uL Dewey # (Auto) 0.27 (0.11-0.59) K/uL Eos # (Auto) 0.00 (0.00-0.50) K/uL Baso # (Auto) 0.03 (0.00-0.20) K/uL Immature Gran # (Auto) 0.04 (0.01-0.20) K/uL ESR 3 (0-15) mm/hr Sodium 137 (136-145) mmol/L Potassium 3.9 (3.5-5.1) mmol/L Chloride 103 (98-107) mmol/L Carbon Dioxide 21 (21-32) mmol/L Anion Gap 13 H (3-11) BUN 18 (6-23) mg/dl Creatinine 0.95 (0.6-1.4) mg/dl Est Cr Clr Drug Dosing 97.4 ml/min Est GFR ( Amer) 123.1 ml/min Est GFR (Non-Af Amer) 106.2 ml/min BUN/Creatinine Ratio 18.9 (10-20) Glucose 123 H (70-99(Fasting)) mg/dl Lactate 2.4 H* (0.4-2.0) mmol/L Calcium 9.8 (8.6-10.3) mg/dl Magnesium 1.5 L (1.7-2.4) mg/dl Total Bilirubin 1.3 H (0.2-1.0) mg/dl AST 17 (13-39) U/L ALT 19 (7-52) U/L Alkaline Phosphatase 64 (34-104) U/L Troponin I High Sens 2.7 (0-20) pg/ml C-Reactive Protein < 0.50 (0-0.5) mg/dl Total Protein 7.6 (6.0-8.3) gm/dl Albumin 5.0 (3.4-5.0) gm/dl Globulin 2.6 (2.5-4.0) gm/dl Albumin/Globulin Ratio 1.9 (0.9-2) Lipase 7 L (11-82) U/L Urine Color Yellow Urine Appearance Clear (Clear) Urine pH >= 9.0 H (4.5-7.5) Ur Specific Cumming 1.026 (1.000-1.030) Urine Protein 2+ H (Negative) Urine Glucose (UA) Negative (Negative) Urine Ketones 4+ H (Negative) Urine Blood Negative (Negative) Urine Nitrite Negative (Negative) Urine Bilirubin Negative (Negative) Urine Urobilinogen Negative (Negative) Ur Leukocyte Esterase Negative (Negative) Urine WBC (Auto) 1-5 (0-5) /hpf Urine RBC (Auto) 0-4 (0-4) /hpf U Hyaline Cast (Auto) 1-5 (0-5) /lpf U Epithel Cells (Auto) >30 H (0-5) /lpf Urine Bacteria (Auto) Negative (Negative) Ur Renal Epithelial Cell Not Reportable SARS-CoV-2 (PCR) NEGATIVE (Negative) Influenza Type A (PCR) Negative (Neg) Influenza Type B (PCR) Negative (Neg) RSV (RT-PCR) Negative (Neg) 07/08/23 07/09/23 Range/Units 20:57 00:04 WBC (4.8-10.8) K/ul RBC (4.70-6.10) M/uL Hgb 14.5 (14.0-18.0) g/dl Hct 40.1 L (42.0-52.0) % MCV (80.0-100.0) fL MCH (25.0-34.0) pg MCHC (32.0-36.0) g/dL RDW Std Deviation (36.4-46.3) fL RDW Coeff of Moiz (11.5-14.5) % Plt Count (130-400) K/uL MPV (9.4-12.4) fL Immature Gran % (Auto) % Neut % (Auto) % Lymph % (Auto) % Dewey % (Auto) % Eos % (Auto) % Baso % (Auto) % Neut # (Auto) (1.40-6.50) K/uL Lymph # (Auto) (1.20-3.40) K/uL Dewey # (Auto) (0.11-0.59) K/uL Eos # (Auto) (0.00-0.50) K/uL Baso # (Auto) (0.00-0.20) K/uL Immature Gran # (Auto) (0.01-0.20) K/uL ESR (0-15) mm/hr Sodium (136-145) mmol/L Potassium (3.5-5.1) mmol/L Chloride (98-107) mmol/L Carbon Dioxide (21-32) mmol/L Anion Gap (3-11) BUN (6-23) mg/dl Creatinine (0.6-1.4) mg/dl Est Cr Clr Drug Dosing ml/min Est GFR ( Amer) ml/min Est GFR (Non-Af Amer) ml/min BUN/Creatinine Ratio (10-20) Glucose (70-99(Fasting)) mg/dl Lactate 1.3 (0.4-2.0) mmol/L Calcium (8.6-10.3) mg/dl Magnesium (1.7-2.4) mg/dl Total Bilirubin (0.2-1.0) mg/dl AST (13-39) U/L ALT (7-52) U/L Alkaline Phosphatase (34-104) U/L Troponin I High Sens (0-20) pg/ml C-Reactive Protein (0-0.5) mg/dl Total Protein (6.0-8.3) gm/dl Albumin (3.4-5.0) gm/dl Globulin (2.5-4.0) gm/dl Albumin/Globulin Ratio (0.9-2) Lipase (11-82) U/L Urine Color Urine Appearance (Clear) Urine pH (4.5-7.5) Ur Specific Cumming (1.000-1.030) Urine Protein (Negative) Urine Glucose (UA) (Negative) Urine Ketones (Negative) Urine Blood (Negative) Urine Nitrite (Negative) Urine Bilirubin (Negative) Urine Urobilinogen (Negative) Ur Leukocyte Esterase (Negative) Urine WBC (Auto) (0-5) /hpf Urine RBC (Auto) (0-4) /hpf U Hyaline Cast (Auto) (0-5) /lpf U Epithel Cells (Auto) (0-5) /lpf Urine Bacteria (Auto) (Negative) Ur Renal Epithelial Cell SARS-CoV-2 (PCR) (Negative) Influenza Type A (PCR) (Neg) Influenza Type B (PCR) (Neg) RSV (RT-PCR) (Neg) Administered Medications Magnesium Sulfate/Dextrose (Magnesium Sulfate / D5w) 1 gm in 100 mls @ 50 mls/hr IV Q2H MARK ANTHONY Stop: 07/09/23 03:59 Last Admin: 07/09/23 00:26 Dose: 50 mls/hr Documented By: ALEXX Discontinued Medications Sodium Chloride (Nss) 1,000 mls @ 999 mls/hr IV .Q1H1M STA Stop: 07/08/23 18:49 Last Infusion: 07/08/23 19:20 Dose: Infused Documented By: [facility] Admin: 07/08/23 18:15 Dose: 999 mls/hr Documented By: [facility] [place] Acetaminophen (Ofirmev) 1,000 mg in 100 mls @ 400 mls/hr IV NOW STA Stop: 07/08/23 18:05 Last Infusion: 07/08/23 19:10 Dose: Infused Documented By: [facility] [place] Admin: 07/08/23 18:14 Dose: 400 mls/hr Documented By: [facility] [place] Sodium Chloride (Nss) 1,000 mls @ 999 mls/hr IV .Q1H1M ONE Stop: 07/08/23 19:42 Last Infusion: 07/08/23 21:45 Dose: Infused Documented By: [facility] [place] Admin: 07/08/23 19:38 Dose: 999 mls/hr Documented By: [facility] [place] Metronidazole (Flagyl) 500 mg in 100 mls @ 100 mls/hr IV NOW STA; Protocol Stop: 07/09/23 00:23 Last Admin: 07/09/23 00:26 Dose: 100 mls/hr Documented By: ALEXX Ioversol (Optiray 320 100ml) 92 ml IV ONCE ONE Stop: 07/08/23 19:10 Last Admin: 07/08/23 19:09 Dose: 92 ml Documented By: TAYLA Ioversol (Optiray 350 500ml) 113 ml IV ONCE ONE Stop: 07/08/23 21:37 Last Admin: 07/08/23 21:37 Dose: 113 ml Documented By: ANA ROSA Morphine Sulfate (Morphine Sulfate 4 Mg/Ml 1 Ml Carp\\Vial) 4 mg IV NOW STA Stop: 07/08/23 18:58 Last Admin: 07/08/23 19:37 Dose: 4 mg Documented By: [facility] [place] Morphine Sulfate (Morphine Sulfate 4 Mg/Ml 1 Ml Carp\\Vial) 4 mg IV NOW STA Stop: 07/08/23 21:54 Last Admin: 07/08/23 22:10 Dose: 4 mg Documented By: [facility] [place] Ondansetron HCl (Ondansetron Inj 2 Mg/Ml 2 Ml Vial) 4 mg IV NOW STA Stop: 07/08/23 17:50 Last Admin: 07/08/23 18:14 Dose: 4 mg Documented By: [facility] [place] Ondansetron HCl (Ondansetron Inj 2 Mg/Ml 2 Ml Vial) 4 mg IV NOW STA Stop: 07/08/23 21:03 Last Admin: 07/08/23 21:45 Dose: 4 mg Documented By: [facility] [place] Imaging Data Radiologist's Impression: Abdomen/Pelvis CT 07/08/23 17:49 CT abd pelvis IV con only CLINICAL HISTORY: abdominal pain, diarrhea TECHNIQUE: Helical axial images of the abdomen and pelvis were obtained and displayed. Automated dose lowering techniques and/or adjustment according to patient size were utilized for this exam. This exam was performed with intravenous contrast. CT DOSE: 698.62 mGy.cm COMPARISON: Comparison is made to CT abdomen pelvis 05/10/2023 FINDINGS: Lower chest: No acute abnormality. Liver: Unremarkable. No focal lesions are seen. Gallbladder and biliary tree: No calcified gallstones. Normal caliber wall. No intra- or extrahepatic biliary ductal dilation. Pancreas: Unremarkable, no focal lesions. Spleen: Splenule is incidentally noted. Adrenals: Unremarkable. Kidneys and ureters: Unremarkable. Bladder: Unremarkable. Reproductive organs: Prostatic calcifications are seen which may represent prior hemorrhage or granulomatous disease. Bowel: The appendix is normal. There is mild thickening of the transverse and descending colonic wall. Lymph nodes Retroperitoneal: Unremarkable. Pelvic: Unremarkable. Mesenteric: Unremarkable. Peritoneum: Trace free fluid is in the pelvis. Vessels: Unremarkable. Abdominal wall: Unremarkable. Bones: Unremarkable. IMPRESSION: Mild thickening of the transverse and descending colonic wall may represent infectious/inflammatory process versus underdistention. Trace pelvic free fluid may be reactive. ACT 112: Negative or not required by law. Electronically signed by: Donis Darling M.D. 07/08/2023 7:31 PM Chest X-Ray 07/08/23 17:49 XR chest 1V portable CLINICAL HISTORY: abdominal pain TECHNIQUE: Single frontal radiograph of the chest was obtained. Comparison: Comparison is made to chest radiograph 05/10/2023 FINDINGS: No lines and tubes are seen. The cardiomediastinal silhouette is normal. The lungs are clear. No evidence of pleural effusion or pneumothorax. IMPRESSION: No acute chest disease. ACT 112: Negative or not required by law. Electronically signed by: Donis Darling M.D. 07/08/2023 6:34 PM Chest CTA 07/08/23 20:27 Exam(s): CTA CHEST IV Amt: 113ML OPTI 350 EXAM: CT Angiography Chest With Intravenous Contrast CLINICAL HISTORY: Reason for exam: PE. TECHNIQUE: Axial computed tomographic angiography images of the chest with intravenous contrast. CTDI is 23.18 mGy and DLP is 803.73 mGy-cm. Automated exposure control was utilized for the study. A dose lowering technique was utilized adhering to the principles of ALARA. MIP reconstructed images were created and reviewed. COMPARISON: No relevant prior studies available. FINDINGS: Pulmonary arteries: Unremarkable. No pulmonary embolism. Aorta: No acute findings. No thoracic aortic aneurysm. Lungs: Unremarkable. No mass. No consolidation. Pleural space: Unremarkable. No significant effusion. No pneumothorax. Heart: Unremarkable. No cardiomegaly. No significant pericardial effusion. No evidence of RV dysfunction. Bones/joints: No acute fracture. No dislocation. Soft tissues: Unremarkable. Lymph nodes: Unremarkable. No enlarged lymph nodes. IMPRESSION: Normal chest CTA. No pulmonary embolism. Electronically signed by: Ruddy Bello MD 07/08/23 22:10 PM Discharge Plan Visit Data Chief Complaint: Abdominal Pain Stated Complaint: ABD PAIN,BLOODY STOOL,DIARRHEA ED Provider: Maximus Chatterjee ED Midlevel Provider: Ruby Wallace Discharge Problem: Abdominal pain, Diarrhea, Colitis Patient Disposition: Admitted As Inpatient Condition: Good Forms Stand Alone Forms: My [facility] Prescriptions Prescriptions: No Action dextroamphetamine-amphetamine 10 mg tablet 10 mg PO .DAILY AT NOON escitalopram oxalate 20 mg tablet 20 mg PO DAILY buspirone 30 mg tablet 30 mg PO BID lamotrigine 100 mg tablet 200 mg PO QAM dextroamphetamine-amphetamine 20 mg capsule,extended release 24hr 20 mg PO QAM Referrals Referrals: Tavon South MD [Primary Care Provider] - Discharge Problem: Abdominal pain Qualifiers: Abdominal location: generalized Qualified Code(s): R10.84 - Generalized abdominal pain Diarrhea Qualifiers: Diarrhea type: unspecified type Qualified Code(s): R19.7 - Diarrhea, unspecified
[2023-07-08 18:12] LABS: Appearance Urine Clear (Clear); Bacteria Urine Automated Negative (Negative); Bilirubin Urine Negative (Negative); Blood Urine Negative (Negative); Color Urine Yellow; Epithelial Cell Urine Auto >30 /lpf (0-5); Glucose Urine UA Negative (Negative); Ketones Urine 4+ (Negative); Leukocyte Esterase Urine Negative (Negative); Nitrite Urine Negative (Negative); RBC Urine Automated 0-4 /hpf (0-4); Specific Gravity Urine 1.026 (1.000-1.030); Urobilinogen Urine Negative (Negative); pH Urine >= 9.0 (4.5-7.5)
[2023-07-08 18:13] LABS: Protein Urine 2+ (Negative)
[2023-07-08] MEDS: ONDANSETRON INJ 2 MG/ML 2 ML VIAL IV STA ×2 (18:14→21:45)
[2023-07-08] MEDS: ACETAMINOPHEN 1,000 MG/100 ML VIAL IV STA (18:14)
[2023-07-08] MEDS: SODIUM CHLORIDE 0.9% 1,000 ML IV STA (18:15)
[2023-07-08 18:25] LABS: Hematocrit (blood only) 44.8 % (42.0-52.0); Hemoglobin 16.4 g/dl (14.0-18.0); Mean Corpuscular Hemoglobin 29.8 pg (25.0-34.0); Mean Corpuscular Hgb Conc 36.6 g/dL (32.0-36.0); Mean Corpuscular Volume 81.5 fL (80.0-100.0); Mean Platelet Volume 9.8 fL (9.4-12.4); Platelet Count 309 K/uL (130-400); RDW Coefficient of Variation 11.9 % (11.5-14.5); RDW Standard Deviation 35.2 fL (36.4-46.3); White Blood Count 11.69 K/ul (4.8-10.8)
--- NOTE | 2023-07-08 18:35 | XRay Report ---
XR chest 1V portable CLINICAL HISTORY: abdominal pain TECHNIQUE: Single frontal radiograph of the chest was obtained. Comparison: Comparison is made to chest radiograph 05/10/2023 FINDINGS: No lines and tubes are seen. The cardiomediastinal silhouette is normal. The lungs are clear. No evid ence of pleural effusion or pneumothorax. IMPRESSION: No acute chest disease. ACT 112: Negative or not required by law. Electronically signed by: Donis Darling M.D. 07/08/2023 6:34 PM
[2023-07-08 18:41] LABS: Alanine Aminotransferase 19 U/L (7-52); Albumin Globulin Ratio 1.9 (0.9-2); Alkaline Phosphatase 64 U/L (34-104); Anion Gap 13 (3-11); Aspartate Aminotransferase 17 U/L (13-39); BUN Creatinine Ratio 18.9 (10-20); Bilirubin,Total 1.3 mg/dl (0.2-1.0); Blood Urea Nitrogen 18 mg/dl (6-23); C Reactive Protein < 0.50 mg/dl (0-0.5); Calcium 9.8 mg/dl (8.6-10.3); Carbon Dioxide 21 mmol/L (21-32); Chloride 103 mmol/L (98-107); Creatinine Clr Calc Pharmacy 97.4 ml/min; Est GFR (African American) 123.1 ml/min; Est GFR (Non-African American) 106.2 ml/min; Globulin 2.6 gm/dl (2.5-4.0); Glucose 123 mg/dl (70-99(Fasting)); Lipase 7 U/L (11-82); Potassium 3.9 mmol/L (3.5-5.1); Sodium 137 mmol/L (136-145); Total Protein 7.6 gm/dl (6.0-8.3)
[2023-07-08 18:42] LABS: Basophils # (auto) 0.03 K/uL (0.00-0.20); Basophils % (auto) 0.3 %; Immature Granulocytes # (auto) 0.04 K/uL (0.01-0.20); Immature Granulocytes % (auto) 0.3 %; Lymphocytes # (auto) 0.64 K/uL (1.20-3.40); Lymphocytes % (auto) 5.5 %; Monocytes # (auto) 0.27 K/uL (0.11-0.59); Monocytes % (auto) 2.3 %; Neutrophils # (auto) 10.71 K/uL (1.40-6.50); Neutrophils % (auto) 91.6 %
[2023-07-08 19:05] LABS: Influenza A virus by PCR Negative (Neg); Influenza B virus by PCR Negative (Neg); RSV by PCR Negative (Neg); SARS CoV2 RNA(COVID-19) Ceph NEGATIVE (Negative)
[2023-07-08] MEDS: OPTIRAY 320 100ml IV ONE (19:09)
--- NOTE | 2023-07-08 19:33 | CT Scan Report ---
CT abd pelvis IV con only CLINICAL HISTORY: abdominal pain, diarrhea TECHNIQUE: Helical axial images of the abdomen and pelvis were obtained and displayed. Automated dose lowering techniques and/or adjustment according to patient size were utilized for this exam. This e xam was performed with intravenous contrast. CT DOSE: 698.62 mGy.cm COMPARISON: Comparison is made to CT abdomen pelvis 05/10/2023 FINDINGS: Lower chest: No acute abnormality. Liver: Unremarkable. No focal lesions are seen. Gallbladder and biliary tree: No calcified gallstones. Normal caliber wall. No intra- or extrahepatic biliary ductal dilation. Pancreas: Unremarkable, no focal lesions. Spleen: Splenule is incidentally noted. Adrenals: Unremarkable. Kidneys and ureters: Unremarkable. Bladder: Unremarkable. Reproductive organs: Prostatic calcifications are seen which may represent prior hemorrhage or granul omatous disease. Bowel: The appendix is normal. There is mild thickening of the transverse and descending colonic wall . Lymph nodes Retroperitoneal: Unremarkable. Pelvic: Unremarkable. Mesenteric: Unremarkable. Peritoneum: Trace free fluid is in the pelvis. Vessels: Unremarkable. Abdominal wall: Unremarkable. Bones: Unremarkable. IMPRESSION: Mild thickening of the transverse and descending colonic wall may represent infectious/inflammatory p rocess versus underdistention. Trace pelvic free fluid may be reactive. ACT 112: Negative or not required by law. Electronically signed by: Donis Darlign M.D. 07/08/2023 7:31 PM
[2023-07-08] MEDS: MoRPHine SULFATE 4 MG/ML 1 ML CARP\\VIAL IV STA ×2 (19:37→22:10)
[2023-07-08] MEDS: SODIUM CHLORIDE 0.9% 1,000 ML IV ONE (19:38)
[2023-07-08 21:14] LABS: Troponin I High Sensitivity 2.7 pg/ml (0-20)
[2023-07-08] MEDS: OPTIRAY 350 500ml IV ONE (21:37)
--- NOTE | 2023-07-08 22:10 | CT Scan Report ---
Exam(s): CTA CHEST IV Amt: 113ML OPTI 350 EXAM: CT Angiography Chest With Intravenous Contrast CLINICAL HISTORY: Reason for exam: PE. TECHNIQUE: Axial computed tomographic angiography images of the chest with intravenous contrast. CTDI is 23.18 mGy and DLP is 803.73 mGy-cm. Automated exposure control was utilized for the study. A dose lowering technique was utilized adhering to the principles of ALARA. MIP reconstructed images were created and reviewed. COMPARISON: No relevant prior studies available. FINDINGS: Pulmonary arteries: Unremarkable. No pulmonary embolism. Aorta: No acute findings. No thoracic aortic aneurysm. Lungs: Unremarkable. No mass. No consolidation. Pleural space: Unremarkable. No significant effusion. No pneumothorax. Heart: Unremarkable. No cardiomegaly. No significant pericardial effusion. No evidence of RV dysfunction. Bones/joints: No acute fracture. No dislocation. Soft tissues: Unremarkable. Lymph nodes: Unremarkable. No enlarged lymph nodes. IMPRESSION: Normal chest CTA. No pulmonary embolism. Electronically signed by: Ruddy Bello MD 07/08/23 22:10 PM
[2023-07-08] MEDS ORDERED: oxyCODONE HCL IR 5 MG TAB (IMMEDIATE RELEASE) PO PRN (22:35)
[2023-07-08 23:00] LABS: Magnesium 1.5 mg/dl (1.7-2.4)
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
[2023-07-09] MEDS: metroNIDAZOLE 500 MG/100 ML BAG IV STA (00:26)
[2023-07-09] MEDS: MAGNESIUM SULFATE / D5W 1 GM/100 ML BAG IV SCH (00:26)
[2023-07-09 00:53] LABS: Hematocrit (blood only) 40.1 % (42.0-52.0); Hemoglobin 14.5 g/dl (14.0-18.0)
[2023-07-09] MEDS: LORazepam 0.5 MG TAB PO PRN (01:49)
[2023-07-09] MEDS: NSS + 20MEQ KCL 20 MEQ/1,000 ML BAG IV ONE (01:51)
[2023-07-09] MEDS: cefTRIAXone SODIUM 2,000 MG in DEXTROSE 5 % MINI-B 50 ML IV SCH (02:27)
[2023-07-09 06:38] LABS: Basophils # (auto) 0.02 K/uL (0.00-0.20); Basophils % (auto) 0.2 %; Eosinophils # (auto) 0.02 K/uL (0.00-0.50); Eosinophils % (auto) 0.2 %; Hematocrit (blood only) 39.3 % (42.0-52.0); Hemoglobin 14.2 g/dl (14.0-18.0); Immature Granulocytes # (auto) 0.04 K/uL (0.01-0.20); Immature Granulocytes % (auto) 0.4 %; Lymphocytes # (auto) 1.75 K/uL (1.20-3.40); Lymphocytes % (auto) 16.5 %; Mean Corpuscular Hemoglobin 29.9 pg (25.0-34.0); Mean Corpuscular Hgb Conc 36.1 g/dL (32.0-36.0); Mean Corpuscular Volume 82.7 fL (80.0-100.0); Mean Platelet Volume 9.9 fL (9.4-12.4); Monocytes % (auto) 7.5 %; Neutrophils # (auto) 7.99 K/uL (1.40-6.50); Neutrophils % (auto) 75.2 %; Platelet Count 264 K/uL (130-400); RDW Coefficient of Variation 12.6 % (11.5-14.5); RDW Standard Deviation 37.7 fL (36.4-46.3); Red Blood Count 4.75 M/uL (4.70-6.10); White Blood Count 10.62 K/ul (4.8-10.8)
[2023-07-09 06:48] LABS: BUN Creatinine Ratio 12.2 (10-20); Calcium 8.2 mg/dl (8.6-10.3); Creatinine Clr Calc Pharmacy 122.8 ml/min; Est GFR (African American) 131.4 ml/min; Est GFR (Non-African American) 113.4 ml/min
[2023-07-09] MEDS: ACETAMINOPHEN 325 MG TAB PO PRN (10:01)
[2023-07-09] MEDS: busPIRone 15 MG TAB PO SCH (10:04)
[2023-07-09] MEDS: metroNIDAZOLE 500 MG/100 ML BAG IV SCH (10:04)
[2023-07-09] MEDS: lamoTRIgine 100 MG TAB PO SCH (10:04)
[2023-07-09] MEDS: ESCITALOPRAM OXALATE 20 MG TAB PO SCH (10:04)
--- NOTE | 2023-07-09 10:15 | Gastrointestinal Consultation ---
Date of Consultation July 09, 2023 Assessment & Plan (1) Colitis: (2) Diarrhea: (3) Abdominal pain: Plan 1. Colonoscopy tomorrow to r/o IBD 2. Clear liquids po today. 3. Minimal prep is needed : will order 4 doses of Miralax in 32 oz of Gatoraid at 6PM tonight, no prep needed tomorrow, no Dulcolax needed. 4. Please collect stool samples if pt passes diarrhea. 5. Agree w Cipro/Flagyl for now. 6. Further recommendations to follow colonoscopy. History of Present Illness Reason for Consultation: Colitis Requesting Physician: Dr. De La Paz Attending Physician: Raymond Chery MD History of Present Illness Mr. Raphael Christie is a 33 yr old male pt of Dr. Brannon dickens a hx of anxiety who was hospitalized in Apr 2023 for abd pain/nausea/vomiting and diarrhea. CT at that time with ascending and transverse colon wall thickening. C-diff gene was + but toxin (-) and he improved w a 10 day course of vancomycin. Then he had about 2-3 soft/loose BMs/day w a little blood on the toilet paper but other lopez felt well until Sat evening when he experienced nausea, vomiting, severe abd pain and a large liquid BM, yesterday he had several more episodes of diarrhea and abdominal pain continued so he presented to the ED. On arrival, he CT showed transverse and descending colon wall thickening. This morning, his diarrhea, N/V have resolved and his pain is improved but he is continues to be significantly tender on exam. Allergies Allergy/AdvReac Type Severity Reaction Status Date / Time No Known Allergies Allergy Verified 07/10/23 08:09 Home Medications Medication Instructions Recorded Confirmed Type buspirone 30 mg tablet 30 mg PO BID 05/10/23 07/08/23 History dextroamphetamine-amphetamine 10 10 mg PO .DAILY AT NOON 05/10/23 07/08/23 History mg tablet dextroamphetamine-amphetamine ER 20 mg PO QAM 05/10/23 07/08/23 History 20 mg 24hr capsule,extend release escitalopram oxalate 20 mg tablet 20 mg PO DAILY 05/10/23 07/08/23 History lamotrigine 100 mg tablet 200 mg PO QAM 05/10/23 07/08/23 History Patient History Medical History Anxiety and depression Testicular torsion Surgical History No significant past surgical history Social History Smoking Status: Never smoker Second Hand Exposure: No; Do You Dip or Chew Tobacco: No; Hx Alcohol Use: No Hx Substance Use: Yes Last Used Substance: Unknown Last Used Substance Other:: 2 days ago Substance Use Type Other:: Medical marijuana card barros Preferred Language: Icelandic Communication Ability: Effective 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 Denies weakness, fevers; has had 80 lbs weight loss in the past 2 years weight loss but thinks related to anxiety and disordered food thoughts - is in counselling. Eyes: No eye redness, or pain, no recent vision changes Resp: No SOB, no cough Cardio: No palpitations/irregular beats, no chest pain GI: + as per HPI, otherwise (-) : Denies pain on urination Skin: No jaundice, itching or new rashes Physical Exam Constitutional: WD/WN, vitals as above Eyes: PERRL, conjunctivae normal, anicteric sclerae ENMT: external ear and nose normal, oropharynx normal Neck: trachea midline, no thyromegaly Respiratory: normal respiratory effort, lungs clear to auscultation Cardiovascular: RRR, no murmur, no edema Gastrointestinal (Abdomen): Hypoactive BS, Abd is soft, non distended, he is very tender over the LUQ, left mid and LLQs. No palpable masses. Skin: no rashes, warm and dry Neurologic: PERRL, EOMI, accommodation nl, no face palsy, no dysarthria Psychiatric: A+Ox3, euthymic affect Lymphatic: no cervical or axillary lymphadenopathy Results & Data Vital Signs (Past 12 Hours) Vital Signs Temp Pulse Pulse Resp BP BP Pulse Ox 07/09/23 07:08 36.7 C 74 18 118/73 97 07/09/23 01:42 36.7 C 72 14 120/75 100 07/09/23 01:03 66 16 113/70 97 07/08/23 23:00 65 18 119/77 98 07/08/23 22:42 52 L O2 Del Method 07/09/23 07:08 Room Air 07/09/23 01:42 Room Air 07/09/23 01:03 Room Air 07/08/23 23:00 Room Air 07/08/23 22:42 Laboratory Results WBC 10, Hb 14, Hct 39, Plts 264, Na 139, K 4, CL 109, Co2 25, BUN 11, C 0.9, glucose 94. Diagnostic Findings CTAP w IV 07/08/23: Mild thickening of the transverse and descending colonic wall may represent infectious/inflammatory process versus underdistention. Trace pelvic free fluid may be reactive. CXR: 07/08/23: normal. Chest CT 07/08/23: Normal chest CTA. No pulmonary embolism. (2) Diarrhea Diarrhea type: unspecified type Qualified Code(s): R19.7 - Diarrhea, unspecified (3) Abdominal pain Abdominal location: generalized Qualified Code(s): R10.84 - Generalized abdominal pain
[2023-07-09] MEDS: DEXTROAMPHETAMINE/AMPHETAMINE ER 10 MG CAP PO SCH (10:55)
--- NOTE | 2023-07-09 13:47 | Electrocardiogram Report ---
Test Reason : Blood Pressure : / mmHG Vent. Rate : 057 BPM Atrial Rate : 057 BPM P-R Int : 142 ms QRS Dur : 080 ms QT Int : 422 ms P-R-T Axes : 052 051 039 degrees QTc Int : 410 ms Sinus bradycardia with sinus arrhythmia Nonspecific ST and T wave abnormality Abnormal ECG When compared with ECG of 10-MAY-2023 22:56, No significant change was found Confirmed by Madhu Sampson ([id number]) on 07/09/2023 1:47:19 PM Referred By: REFERRED SELF Confirmed By:Madhu Sampson
[2023-07-09] MEDS: KETOROLAC TROMETHAMINE 15 MG/ML VIAL IV PRN (13:55)
--- NOTE | 2023-07-09 15:45 | Hospitalist Progress Note ---
Date of Service July 09, 2023 Assessment & Plan (1) Colitis: Plan: Recurrent hemorrhagic colitis Past history C. difficile gene positive stool status post vancomycin Rx Lactic acidosis secondary to clinical dehydration, resolved after initial IV hydration at the ER ADHD/anxiety/mood disorder, at baseline 07/08 Symptoms seems to be improving Hemoglobin stable Electrolytes also stable Stool panel pending Continue ceftriaxone plus Flagyl For colonoscopy tomorrow GI service consulted DVT prophylaxis. SCDs RE LGIB Full code Admission and Anticipated Discharge Date Admission Date: July 08, 2023 Subjective Follow-up for colitis, etc. Seen resting in bed, comfortable, not in distress States he feels improved compared to yesterday Abdominal pain improving As well as diarrhea no chest pain, dyspnea, palpitations, dizziness No other new symptom Review of Systems Review of Systems: all noted and negative except for above Physical Exam Physical Exam: General- oriented x 3, not in distress, speaks in sentences with no effort or accessory muscle use Eyes- anicteric Neck- no JVD Lungs- clear breath sounds bilaterally, no rales/wheezes Heart- normal rate, regular rhythm; no murmurs Abdomen- normal bowel sounds, nondistended, soft, mild tenderness left upper quadrant area Extremities- no pretibial edema, no calf tenderness Neuro- alert, oriented x 3; no gross focal neurologic deficits Skin- warm & dry Results & Data Results & Data Vital Signs (Past 12 Hours) Vital Signs Temp Pulse Resp BP Pulse Ox O2 Del Method 07/09/23 15:04 36.8 C 91 H 18 125/75 97 Room Air 07/09/23 07:08 36.7 C 74 18 118/73 97 Room Air all noted and reviewed including below
[2023-07-09] MEDS: POLYETHYLENE (MIRALAX) 17 GM PACK PO ONE (17:19)
[2023-07-09 22:26] LABS: Adenovirus F 40/41 PCR Not Detected (NotDetected); Astrovirus PCR Not Detected (NotDetected); Campylobacter PCR Not Detected (NotDetected); Cryptosporidium PCR Not Detected (NotDetected); Cyclospora cayetanensis PCR Not Detected (NotDetected); Entamoeba histolytica PCR Not Detected (NotDetected); Enteroaggregative E.coli(EAEC) Not Detected (NotDetected); Enteropathogenic E.coli (EPEC) Not Detected (NotDetected); Enterotoxigenic E.coli (ETEC) Not Detected (NotDetected); Giardia lamblia PCR Not Detected (NotDetected); Norovirus GI/GII PCR Not Detected (NotDetected); Plesiomonas shigelloides PCR Not Detected (NotDetected); Rotavirus A PCR Not Detected (NotDetected); Salmonella PCR Not Detected (NotDetected); Sapovirus PCR Not Detected (NotDetected); Shiga-like Toxin E.coli (STEC) Not Detected (NotDetected); Shigella/Enteroinvasive E.coli Not Detected (NotDetected); Vibrio cholerae PCR Not Detected (NotDetected); Vibrio species PCR Not Detected (NotDetected); Yersinia enterocolitica PCR Not Detected (NotDetected)
[2023-07-10 07:48] LABS: BUN Creatinine Ratio 10.8 (10-20); Calcium 8.5 mg/dl (8.6-10.3); Creatinine Clr Calc Pharmacy 108.3 ml/min; Est GFR (Non-African American) 97.5 ml/min; Potassium 3.9 mmol/L (3.5-5.1)
--- NOTE | 2023-07-10 08:29 | History & Physical Report ---
Date of Service July 10, 2023 Assessment & Plan Admission and Anticipated Discharge Date Admission Date: July 08, 2023 History of Present Illness Primary Care Provider: Tavon South MD Diarrhea, abnl CT CV: RRR Resp: CTA Abd: soft A/p: Cscopy Allergies Allergy/AdvReac Type Severity Reaction Status Date / Time No Known Allergies Allergy Verified 07/10/23 08:09 Home Medications Medication Instructions Recorded Confirmed Type buspirone 30 mg tablet 30 mg PO BID 05/10/23 07/08/23 History dextroamphetamine-amphetamine 10 10 mg PO .DAILY AT NOON 05/10/23 07/08/23 History mg tablet dextroamphetamine-amphetamine ER 20 mg PO QAM 05/10/23 07/08/23 History 20 mg 24hr capsule,extend release escitalopram oxalate 20 mg tablet 20 mg PO DAILY 05/10/23 07/08/23 History lamotrigine 100 mg tablet 200 mg PO QAM 05/10/23 07/08/23 History Past Med/Surg History Medical History Anxiety and depression Testicular torsion Surgical History No significant past surgical history Social History Smoking Status: Never smoker Second Hand Exposure: No; Do You Dip or Chew Tobacco: No; Hx Alcohol Use: No Hx Substance Use: Yes Last Used Substance: Unknown Last Used Substance Other:: 2 days ago Substance Use Type Other:: Medical marijuana card barros Preferred Language: Welsh Communication Ability: Effective 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 Development 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
--- NOTE | 2023-07-10 08:34 | Anesthesiology Consultation ---
Date of Service July 10, 2023 Assessment & Plan Consults Requested medical & cardiac Pulmonary History Surgery Operation Date: 07/10/23 16:30 Proposed Procedures p Colonoscopy Dr Fisher - Alexandra Fisher MD Height/Weight Height: 5 ft 10 in Weight: 78 kg Allergies Allergy/AdvReac Type Severity Reaction Status Date / Time No Known Allergies Allergy Verified 07/10/23 08:09 Medications Home Medications Medication Instructions Recorded Confirmed Last Taken buspirone 30 mg tablet 30 mg PO BID 05/10/23 07/08/23 Unknown dextroamphetamine-amphetamine 10 10 mg PO .DAILY AT NOON 05/10/23 07/08/23 Unknown mg tablet dextroamphetamine-amphetamine ER 20 mg PO QAM 05/10/23 07/08/23 Unknown 20 mg 24hr capsule,extend release escitalopram oxalate 20 mg tablet 20 mg PO DAILY 05/10/23 07/08/23 Unknown lamotrigine 100 mg tablet 200 mg PO QAM 05/10/23 07/08/23 Unknown Active Medications Generic Name Dose Route Start Last Admin Trade Name Freq PRN Reason Stop Dose Admin Acetaminophen 650 mg 07/08/23 22:35 07/09/23 19:10 Acetaminophen 325 Mg Tab PO 08/07/23 22:34 650 mg QID PRN Administration pain/fever Amphetamine/Dextroamphetamine 20 mg 07/09/23 09:00 07/10/23 07:38 Dextroamphetamine/Amphetamine Er 10 Mg Cap PO 07/23/23 08:59 20 mg QAM MARK ANTHONY Administration Buspirone HCl 30 mg 07/09/23 09:00 07/10/23 07:38 Buspirone 15 Mg Tab PO 08/08/23 08:59 30 mg BID MARK ANTHONY Administration Escitalopram Oxalate 20 mg 07/09/23 09:00 07/10/23 07:38 Escitalopram Oxalate 20 Mg Tab PO 08/08/23 08:59 20 mg DAILY MARK ANTHONY Administration Ceftriaxone Sodium 2,000 mg/ 50 mls @ 100 mls/hr 07/09/23 02:30 07/10/23 02:57 Dextrose IV 07/19/23 02:29 Infused Q24H MARK ANTHONY Infusion Protocol Metronidazole 500 mg in 100 mls @ 100 mls/hr 07/09/23 08:00 07/10/23 08:02 Flagyl IV 04/04/24 07:59 0 mls/hr Q8H MARK ANTHONY Infusion Protocol Ketorolac Tromethamine 15 mg 07/08/23 23:56 07/09/23 21:11 Ketorolac Tromethamine 15 Mg/Ml Vial IV 07/13/23 23:55 15 mg Q6H PRN Administration Pain Lamotrigine 200 mg 07/09/23 09:00 07/10/23 07:38 Lamotrigine 100 Mg Tab PO 08/08/23 08:59 200 mg QAM MARK ANTHONY Administration Protocol Lorazepam 0.5 mg 07/08/23 22:35 07/09/23 21:11 Lorazepam 0.5 Mg Tab PO 08/07/23 22:34 0.5 mg TID PRN Administration Anxiety NPO Date Last Intake of Fluids: 07/10/23 Time Last Intake of Fluids: 07:30 Date Last Intake of Solids: 07/08/23 Time Last Intake of Solids: 09:00 Past Medical History Medical History Anxiety and depression Testicular torsion Past Surgical History Surgical History No significant past surgical history Social History Smoking Status: Never smoker Do You Dip or Chew Tobacco: No Hx Alcohol Use: No Hx Substance Use: Yes substance use type: marijuana Substance Use Type Other:: Medical marijuana card barros Last Used Substance: Unknown Last Used Substance Other:: 2 days ago Physical Exam Vital Signs Last Vital Signs Temp 36.9 C 07/10/23 08:13 Pulse 68 07/10/23 08:13 Resp 16 07/10/23 08:13 BP 140/86 07/10/23 08:13 Pulse Ox 99 07/10/23 08:13 O2 Del Method Room Air 07/10/23 08:13 Testing Laboratory Results 07/09/23 06:07 07/10/23 07:01 Urine Color Yellow 07/08/23 18:00 Urine Appearance Clear (Clear) 07/08/23 18:00 Urine pH >= 9.0 (4.5-7.5) H 07/08/23 18:00 Ur Specific [place] 1.026 (1.000-1.030) 07/08/23 18:00 Urine Protein 2+ (Negative) H 07/08/23 18:00 Urine Glucose (UA) Negative (Negative) 07/08/23 18:00 Urine Ketones 4+ (Negative) H 07/08/23 18:00 Urine Nitrite Negative (Negative) 07/08/23 18:00 Ur Leukocyte Esterase Negative (Negative) 07/08/23 18:00 Urine WBC (Auto) 1-5 /hpf (0-5) 07/08/23 18:00 Urine RBC (Auto) 0-4 /hpf (0-4) 07/08/23 18:00 U Hyaline Cast (Auto) 1-5 /lpf (0-5) 07/08/23 18:00 U Epithel Cells (Auto) >30 /lpf (0-5) H 07/08/23 18:00 Urine Bacteria (Auto) Negative (Negative) 07/08/23 18:00 Blood Type A Positive 07/09/23 00:04 Antibody Screen NEGATIVE 07/09/23 00:04 07/08/23 19:34 Aerobic Blood Culture - Preliminary Blood No growth in Aerobic bottle after 24 hours. Anaerobic Blood Culture - Preliminary No growth in Anaerobic bottle after 24 hours. 07/08/23 19:34 Aerobic Blood Culture - Preliminary Blood No growth in Aerobic bottle after 24 hours. Anaerobic Blood Culture - Preliminary No growth in Anaerobic bottle after 24 hours.
--- NOTE | 2023-07-10 09:07 | GI REPORT ---
Patient Name: Raphael Christie Procedure Date: 07/10/2023 8:36 AM Date of : 1990 Admit Type: Inpatient Age: 33 Gender: Male Attending MD: Alexandra Fisher MD, Procedure: Colonoscopy Providers: Alexandra Fisher MD Referring MD: Raymond Chery Indications: Abnormal CT of the GI tract Medicines: See the Anesthesia note for documentation of the administered medications Complications: No immediate complications. Estimated Blood Loss: Estimated blood loss: none. Procedure: Pre-Anesthesia Assessment: - ASA Grade Assessment: II - A patient with mild systemic disease. After I obtained informed consent, the scope was passed under direct vision. Throughout the procedure, the patient's blood pressure, pulse, and oxygen saturations were monitored continuously. The Scope was introduced through the anus and advanced to the terminal ileum. The colonoscopy was performed without difficulty. The patient tolerated the procedure well. The quality of the bowel preparation was good. Findings: The perianal and digital rectal examinations were normal. The colon (entire examined portion) appeared normal. Biopsies were taken with a cold forceps for histology. The terminal ileum appeared normal. Impression: - The entire examined colon is normal. Biopsied. - The examined portion of the ileum was normal. Recommendation: - Discharge patient to floor. Advance diet to tolerated. Follow up stool studies. Alexandra Fisher M.D. Alexandra Fisher MD 07/10/2023 9:06:08 AM This report has been signed electronically. Note Initiated On: 07/10/2023 8:36 AM Number of Addenda: 0 I attest to the content of the Intraoperative Record and orders documented therein, exceptions below {[id number]}
[2023-07-10] MEDS: MIDAZOLAM HCL 1 MG/ML 2ML VIAL ONE (09:51)
[2023-07-10] MEDS: LIDOCAINE 2% 2 ML VIAL/AMP(20MG/ML) INFIL ONE (09:51)
[2023-07-10] MEDS: PROPOFOL IV EMULSION 10 MG/ML 20 ML VIAL IV ONE (09:52)
[2023-07-10] MEDS: ONDANSETRON INJ 2 MG/ML 2 ML VIAL ONE (09:52)
[2023-07-10] MEDS: PROMETHAZINE HCL 6.25 MG in SODIUM CHLORIDE 0.9% 50 ML IV PRN (10:23)
--- NOTE | 2023-07-10 13:06 | Anesthesiology Progress Note ---
Date of Service July 10, 2023 Anesthesia Post Procedure Vital Signs Vital Signs: Temp Pulse Resp BP Pulse Ox O2 Del Method 07/10/23 10:32 36.7 C 71 16 130/80 99 Room Air 07/10/23 09:31 53 L 16 171/106 H 100 Room Air 07/10/23 09:21 54 L 16 163/102 H 100 Room Air 07/10/23 09:06 79 16 151/104 H 100 Room Air 07/10/23 08:13 36.9 C 68 16 140/86 99 Room Air 07/10/23 07:41 37.0 C 72 16 117/73 97 Room Air 07/09/23 19:59 37.1 C 82 16 124/76 97 Room Air 07/09/23 15:04 36.8 C 91 H 18 125/75 97 Room Air Transfer of Care Handoff Completed per policy Notes Mental Status: alert / awake / arousable and participated in evaluation Nausea / Vomiting: adequately controlled Pain: adequately controlled Airway Patency, RR, SpO2: stable & adequate BP & HR: stable & adequate Hydration State: stable & adequate Anesthetic Complications: no major complications apparent and Pt Satisfied with anesthetic care
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
== END 2023-07-10 14:58 | disposition home or self-care (01) | DRG 392 ==
LOC: ED 17:21 → 3W 23:55
DX: E87.20 Acidosis, unspecified; F39 Unspecified mood [affective] disorder; Z79.899 Other long term (current) drug therapy; K52.9 Noninfective gastroenteritis and colitis, unspecified; F41.9 Anxiety disorder, unspecified; E86.0 Dehydration; F90.9 Attention-deficit hyperactivity disorder, unspecified type